=== PATIENT | male | born 1950 | race Caucasian/White ===

== ENCOUNTER 2017-01-17 16:59 | Emergency (ER) | payer BC, OTHER ==
[~2017-01-17] VITALS: Ht 177.8 cm; Wt 105.7 kg
[2017-01-17] MEDS ORDERED: ASPIRIN 81 MG CHEW TABLET ONE (17:00)
[2017-01-17 17:24] LABS: BASO # 0.1 10^3/uL (0.0-0.2); BASO % 0.8 % (0.0-1.0); EOS # 0.2 10^3/uL (0.0-0.50); EOS % 1.7 % (0.0-3.0); IMMATURE GRANULOCYTE % 1.5 % (0-0); LYMPH # 3.9 10^3/uL (1.5-4.5); LYMPH % 30.8 % (24.0-44.0); MEAN CORPUSCULAR HEMOGLOBIN 28.1 pg (27.0-33.0); MEAN CORPUSCULAR VOLUME 87.8 fl (80.0-96.0); MONO # 1.1 10^3/uL (0.0-0.8); MONO % 8.6 % (0.0-5.0); NEUTROPHILS # 7.1 10^3/uL (1.8-7.7); NEUTROPHILS % 56.6 % (36.0-66.0); PLATELET COUNT, AUTOMATED 305 10^3/uL (150-450); RED CELL DISTRIBUTION WIDTH 12.5 % (11.5-14.5); WHITE BLOOD COUNT 12.6 10^3/uL (4.0-10.0)
[2017-01-17] MEDS ORDERED: ONDANSETRON 4MG/2ML VIAL (J2405) As Ordered ONE (17:27)
[2017-01-17 17:33] LABS: INR 1.04
[2017-01-17 17:59] LABS: ALBUMIN 3.3 GM/DL (3.2-5.2); ALBUMIN/GLOBULIN RATIO 0.83 (1.00-1.93); BILIRUBIN,DIRECT 0.3 MG/DL (0.0-0.2); BILIRUBIN,TOTAL 0.5 MG/DL (0.2-1.0); CALCIUM LEVEL 8.6 MG/DL (8.8-10.2); CREATININE FOR GFR 1.36 MG/DL (0.70-1.30); FREE T4 1.01 NG/DL (0.76-1.46); TOTAL PROTEIN 7.3 GM/DL (6.4-8.2)
[2017-01-17] MEDS ORDERED: ATROPINE SULF 1MG/10ML SYRINGE (J0461) IV STA (18:02)
[2017-01-17] MEDS ORDERED: HEPARIN DRIP 25,000 UNITS in APPROPRIATE DILUENT 1 EA IV SCH (18:12)
[2017-01-17] MEDS ORDERED: HEPARIN SOD (PORCINE) 5000 UNITS/ML VIAL IV ONE (18:15)
[2017-01-17] MEDS ORDERED: TENECTEPLASE 50 MG KIT (TNKase)(J3101) IV ONE (18:15)
[2017-01-17] MEDS ORDERED: DOPamine HCL 800 MG in APPROPRIATE DILUENT 1 EA IV SCH (18:15)
[2017-01-17] MEDS ORDERED: NS 1,000 ML IV ONE (18:15)
--- NOTE | 2017-01-17 18:16 | REP ---
HISTORY: Chest pain. The technique utilized in obtaining the radiograph has magnified the cardiac silhouette and accentuated the interstitial markings. The superior mediastinal structures are midline. The cardiac silhouette is unremarkable in size, shape, and position. The diaphragmatic surfaces of the lungs are regular, and the costophrenic angles are clear. The pulmonary loaiza are clear. The imaged osseous structures are intact. IMPRESSION: There is no acute cardiopulmonary disease. The mediastinum is widened, probably due to portable technique, however, there are no priors for comparison. Consider followup with contrast enhanced CT. Signed by Roberto Browning DO 01/17/2017 07:44 P
[2017-01-17] MEDS ORDERED: METOCLOPRAMIDE INJ 10MG/2ML VIAL (J2765) IV ONE ×2 (18:30→18:45)
[2017-01-17] MEDS ORDERED: ONDANSETRON 4MG/2ML VIAL (J2405) IV ONE (18:45)
[2017-01-17 19:04] VITALS: BP 105/58
--- NOTE | 2017-01-17 19:18 | REP ---
REASON: Trauma. COMPARISON: None. TECHNIQUE: 4.5 mm contiguous transaxial sections were obtained from the skull base to the cerebral convexities with thin cuts through the posterior fossa without the administration of intravenous contrast. FINDINGS: The ventricles and sulci are consistent with the patient's age. There are no extra-axial fluid collections. There is no mass effect. The deep cerebral white matter is consistent with the patient's age. The orbital and petrous structures, cerebellopontine angles, and posterior fossa are unremarkable. The sella turcica, cavernous, and paracavernous structures are essentially unremarkable. The visualized portions of the paranasal sinuses and mastoid air cells are clear. Images of the skull base show no gross abnormality. There is evidence of a right temporal region scalp hematoma and sinus mucosal thickening. IMPRESSION: Essentially unremarkable CT examination of the brain. Signed by Roberto Browning DO 01/17/2017 07:45 P
--- NOTE | 2017-01-17 19:24 | REP ---
HISTORY: Pain after trauma. COMPARISON: None. The examination is limited by the lack of intravenous contrast. The liver, gallbladder, spleen, pancreas, and adrenal glands are grossly unremarkable. In the right kidney there is a round 2.5 cm size structure which has water Hounsfield unit readings consistent with a simple cyst. In the left kidney, there is a round 2 cm size low density structure which has water Hounsfield unit readings consistent with simple cysts. Limited evaluation of the abdominal aorta and paraaortic regions show no gross abnormalities. There is calcific atherosclerotic change. Limited evaluation of the bowel loops and their mesenteries show no gross abnormalities. There is no free fluid or free air in the abdomen or pelvis. There is no evidence of an intraabdominal or intrapelvic mass or adenopathy. There is a large right inguinal ring with fat within the inguinal canal. Bone window technique throughout the examination shows the osseous structures to be within normal limits for the patient's age. IMPRESSION: Chronic changes as described above. There are bilateral renal cysts and there is fat in the right inguinal canal. This does not indicate a definite hernia, which needs to be correlated clinically. Signed by Roberto Browning DO 01/17/2017 07:45 P
--- NOTE | 2017-01-17 19:37 | REP ---
REASON: Trauma. COMPARISON: None. The lack of intravenous contrast significantly decreases the sensitivity of the exam. There is no mediastinal or hilar adenopathy. There are no pleural or pericardial effusions. The imaged osseous structures are within normal limits for the patients age. Evaluation of the lung loaiza show patchy opacities scattered throughout with curvilinear densities, most likely consistent with subsegmental atelectatic changes. There is no evidence of a significant nodule or mass. IMPRESSION:Limited examination showing no evidence of acute disease. Signed by Roberto Browning DO 01/17/2017 07:46 P
--- NOTE | 2017-01-18 07:36 | ECGEPIP ---
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
--- NOTE | 2017-01-18 07:43 | ECGEPIP ---
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
== END 2017-01-17 19:06 | disposition short-term general hospital (02) ==
LOC: EDBD 16:59 → M ED 16:59
DX: I21.19 ST elevation (STEMI) myocardial infarction involving other coronary artery of inferior wall (principal); E11.9 Type 2 diabetes mellitus without complications; Z91.19 Patient's noncompliance with other medical treatment and regimen; Z82.49 Family history of ischemic heart disease and other diseases of the circulatory system
CPT/HCPCS: 70450; 71010; 71250; 74176; 80048; 80076; 82550; 82553; 83690; 83880; 84439; 84443; 85025; 85610; 93005; 93041; 96374; 96375; 96376; 99291; J0461; J1265; J2405; J2765; J3101

== ENCOUNTER → 2017-03-18 | Outpatient (REF) | payer BC, MEDICARE | LOC: SKLAB3 18:04 | DX: M17.11 Unilateral primary osteoarthritis, right knee (principal); M16.11 Unilateral primary osteoarthritis, right hip | CPT/HCPCS: 73564 ==

== ENCOUNTER → 2017-03-18 | Outpatient (REF) ==
[2017-03-16 07:42] LABS: HEMATOCRIT 34.9 % (42.0-52.0); HEMOGLOBIN 10.5 g/dl (14.0-18.0); MEAN CORPUSCULAR HEMOGLOBIN 27.9 pg (27.0-33.0); MEAN CORPUSCULAR HGB CONC 30.1 g/dl (32.0-36.5); MEAN CORPUSCULAR VOLUME 92.6 fl (80.0-96.0); PLATELET COUNT, AUTOMATED 241 10^3/uL (150-450); RED BLOOD COUNT 3.77 10^6/uL (4.30-6.10); RED CELL DISTRIBUTION WIDTH 14.7 % (11.5-14.5); WHITE BLOOD COUNT 6.9 10^3/uL (4.0-10.0)
[2017-03-18 17:23] LABS: ALBUMIN 3.1 GM/DL (3.2-5.2)
[2017-03-18 17:35] LABS: PREALBUMIN 26.7 MG/DL (20.0-40.0)
== END ==
LOC: SKLAB3 12:46
DX: Z00.00 Encounter for general adult medical examination without abnormal findings (principal)

== ENCOUNTER 2017-03-29 16:24 | Emergency (ER) | payer BC, MEDICARE ==
[2017-03-29] MEDS: ASPIRIN 81 MG CHEW TABLET PO (16:45)
[2017-03-29 16:50] LABS: BASO # 0.1 10^3/uL (0.0-0.2); EOS # 0.4 10^3/uL (0.0-0.50); EOS % 3.7 % (0.0-3.0); HEMATOCRIT 30.3 % (42.0-52.0); HEMOGLOBIN 9.3 g/dl (14.0-18.0); IMMATURE GRANULOCYTE # 0.5 10^3/uL (0-0); IMMATURE GRANULOCYTE % 4.7 % (0-0); LYMPH # 2.2 10^3/uL (1.5-4.5); LYMPH % 20.6 % (24.0-44.0); MEAN CORPUSCULAR HEMOGLOBIN 28.1 pg (27.0-33.0); MEAN CORPUSCULAR HGB CONC 30.7 g/dl (32.0-36.5); MEAN CORPUSCULAR VOLUME 91.5 fl (80.0-96.0); MONO # 0.9 10^3/uL (0.0-0.8); MONO % 8.6 % (0.0-5.0); NEUTROPHILS # 6.6 10^3/uL (1.8-7.7); NEUTROPHILS % 61.4 % (36.0-66.0); PLATELET COUNT, AUTOMATED 255 10^3/uL (150-450); RED BLOOD COUNT 3.31 10^6/uL (4.30-6.10); RED CELL DISTRIBUTION WIDTH 14.5 % (11.5-14.5); WHITE BLOOD COUNT 10.7 10^3/uL (4.0-10.0)
[2017-03-29 17:17] LABS: ALBUMIN 3.3 GM/DL (3.2-5.2); ALBUMIN/GLOBULIN RATIO 0.77 (1.00-1.93); ALKALINE PHOSPHATASE 134 U/L (45-117); ALT/SGPT 18 U/L (12-78); ANION GAP 6 MEQ/L (8-16); AST/SGOT 15 U/L (7-37); BILIRUBIN,DIRECT 0.1 MG/DL (0.0-0.2); BILIRUBIN,TOTAL 0.3 MG/DL (0.2-1.0); BLOOD UREA NITROGEN 10 MG/DL (7-18); CALCIUM LEVEL 8.6 MG/DL (8.8-10.2); CARBON DIOXIDE LEVEL 31 MEQ/L (21-32); CHLORIDE LEVEL 104 MEQ/L (98-107); CPK CREATINE PHOSPHOKINASE 30 U/L (39-308); CREATININE FOR GFR 1.12 MG/DL (0.70-1.30); GLOMERULAR FILTRATION RATE > 60.0 (>49); GLUCOSE, FASTING 142 MG/DL (70-100); LIPASE 1047 U/L (73-393); POTASSIUM SERUM 3.6 MEQ/L (3.5-5.1); SODIUM LEVEL 141 MEQ/L (136-145); TOTAL PROTEIN 7.6 GM/DL (6.4-8.2); TROPONIN I 0.02 NG/ML (< 0.10)
[2017-03-29 17:18] LABS: CK-MB VALUE MASS 2.2 NG/ML (0.0-3.6); MB/CK RELATIVE INDEX 7.33 (< OR =4); NT-PRO BNP 5405 PG/ML (<125)
[2017-03-29 17:20] LABS: INR 1.07
[2017-03-29 17:21] LABS: PARTIAL THROMBOPLASTIN TIME 36.6 SECONDS (26.8-37.9)
[2017-03-29] MEDS: ACETAMINOPHEN TAB 650MG DOSE (2X325MG) PO (21:55)
[2017-03-29 23:24] LABS: CPK CREATINE PHOSPHOKINASE 26 U/L (39-308); TROPONIN I 0.02 NG/ML (< 0.10)
[2017-03-29 23:27] LABS: MB/CK RELATIVE INDEX 7.69 (< OR =4)
== END 2017-03-30 01:00 | disposition home or self-care (01) ==
LOC: M ED 03-30 01:00
DX: J90 Pleural effusion, not elsewhere classified (principal); E11.9 Type 2 diabetes mellitus without complications; I25.10 Atherosclerotic heart disease of native coronary artery without angina pectoris; I25.2 Old myocardial infarction; N18.6 End stage renal disease; Z99.2 Dependence on renal dialysis; D64.9 Anemia, unspecified; L89.150 Pressure ulcer of sacral region, unstageable; Z79.899 Other long term (current) drug therapy
CPT/HCPCS: 71045

== ENCOUNTER → 2017-04-01 | Outpatient (REF) ==
[2017-04-01 17:11] LABS: ALBUMIN 3.2 GM/DL (3.2-5.2); ALBUMIN/GLOBULIN RATIO 0.78 (1.00-1.93); ALKALINE PHOSPHATASE 119 U/L (45-117); ALT/SGPT 17 U/L (12-78); ANION GAP 7 MEQ/L (8-16); AST/SGOT 16 U/L (7-37); BILIRUBIN,TOTAL 0.4 MG/DL (0.2-1.0); BLOOD UREA NITROGEN 11 MG/DL (7-18); CALCIUM LEVEL 8.6 MG/DL (8.8-10.2); CARBON DIOXIDE LEVEL 31 MEQ/L (21-32); CHLORIDE LEVEL 104 MEQ/L (98-107); CHOLESTEROL LEVEL 99 MG/DL (<200); CHOLESTEROL RISK RATIO 2.828 (<5); CREATININE FOR GFR 1.21 MG/DL (0.70-1.30); GLOMERULAR FILTRATION RATE > 60.0 (>49); GLUCOSE, FASTING 141 MG/DL (70-100); HDL CHOLESTEROL 35 MG/DL (>40); IRON (FE) 113 UG/DL (65-175); LDL CHOLESTEROL 32.4 MG/DL (<100); NON-HDL-C 64 MG/DL; POTASSIUM SERUM 3.9 MEQ/L (3.5-5.1); SODIUM LEVEL 142 MEQ/L (136-145); TOTAL PROTEIN 7.3 GM/DL (6.4-8.2); TRIGLYCERIDES LEVEL 158 MG/DL (<150)
[2017-04-01 17:34] LABS: HEMATOCRIT 28.1 % (42.0-52.0); HEMOGLOBIN 8.6 g/dl (14.0-18.0); MEAN CORPUSCULAR HGB CONC 30.6 g/dl (32.0-36.5); MEAN CORPUSCULAR VOLUME 91.5 fl (80.0-96.0); PLATELET COUNT, AUTOMATED 232 10^3/uL (150-450); RED BLOOD COUNT 3.07 10^6/uL (4.30-6.10); RED CELL DISTRIBUTION WIDTH 14.8 % (11.5-14.5); WHITE BLOOD COUNT 10.6 10^3/uL (4.0-10.0)
[2017-04-01 17:39] LABS: ESTIMATED AVERAGE GLUCOSE 126 MG/DL (60-110)
== END ==
LOC: SKLAB3 07:31
DX: D64.9 Anemia, unspecified (principal); E11.9 Type 2 diabetes mellitus without complications; I25.10 Atherosclerotic heart disease of native coronary artery without angina pectoris

== ENCOUNTER → 2017-04-21 | Outpatient (REF) | payer BC, MEDICARE | LOC: SKLAB3 20:25 | DX: N17.9 Acute kidney failure, unspecified (principal) ==

== ENCOUNTER → 2017-04-22 | Outpatient (REF) ==
[2017-04-22 08:06] LABS: HEMATOCRIT 31.1 % (42.0-52.0); HEMOGLOBIN 9.5 g/dl (14.0-18.0); MEAN CORPUSCULAR HEMOGLOBIN 27.7 pg (27.0-33.0); MEAN CORPUSCULAR HGB CONC 30.5 g/dl (32.0-36.5); MEAN CORPUSCULAR VOLUME 90.7 fl (80.0-96.0); PLATELET COUNT, AUTOMATED 228 10^3/uL (150-450); RED BLOOD COUNT 3.43 10^6/uL (4.30-6.10); RED CELL DISTRIBUTION WIDTH 15.7 % (11.5-14.5); WHITE BLOOD COUNT 10.7 10^3/uL (4.0-10.0)
[2017-04-22 08:27] LABS: ANION GAP 11 MEQ/L (8-16); BLOOD UREA NITROGEN 63 MG/DL (7-18); CALCIUM LEVEL 9.2 MG/DL (8.8-10.2); CARBON DIOXIDE LEVEL 25 MEQ/L (21-32); CHLORIDE LEVEL 103 MEQ/L (98-107); CREATININE FOR GFR 3.36 MG/DL (0.70-1.30); GLOMERULAR FILTRATION RATE 19.7 (>49); GLUCOSE, FASTING 146 MG/DL (70-100); SODIUM LEVEL 139 MEQ/L (136-145)
[2017-04-22 08:30] LABS: POTASSIUM SERUM 5.4 MEQ/L (3.5-5.1)
== END ==
LOC: SKLAB3 07:00
DX: D64.9 Anemia, unspecified (principal); R06.02 Shortness of breath; N18.9 Chronic kidney disease, unspecified

== ENCOUNTER → 2017-04-23 | Outpatient (REF) ==
[2017-04-23 15:02] LABS: CREATININE, SERUM 3.4 MG/DL (0.6-1.3); TOTAL VOLUME, URINE 135 ML
[2017-04-23 15:42] LABS: CREATININE CLEARANCE, URINE 3.1 ML/MIN (85-125)
== END ==
LOC: SKLAB3 14:50
DX: N18.9 Chronic kidney disease, unspecified (principal)

== ENCOUNTER → 2017-05-06 | Outpatient (REF) ==
[2017-05-06 11:36] LABS: CREATININE, SERUM 5.5 MG/DL (0.6-1.3); TOTAL VOLUME, URINE 70 ML
[2017-05-06 11:37] LABS: CREATININE CLEARANCE, URINE 1.4 ML/MIN (85-125)
== END ==
LOC: SKLAB3 09:18
DX: N18.9 Chronic kidney disease, unspecified (principal)

== ENCOUNTER → 2017-05-13 | Outpatient (REF) ==
[2017-05-13 09:04] LABS: HEMATOCRIT 34.1 % (42.0-52.0); HEMOGLOBIN 10.3 g/dl (14.0-18.0); MEAN CORPUSCULAR HEMOGLOBIN 27.8 pg (27.0-33.0); MEAN CORPUSCULAR HGB CONC 30.2 g/dl (32.0-36.5); MEAN CORPUSCULAR VOLUME 92.2 fl (80.0-96.0); PLATELET COUNT, AUTOMATED 202 10^3/uL (150-450); RED CELL DISTRIBUTION WIDTH 16.2 % (11.5-14.5); WHITE BLOOD COUNT 9.7 10^3/uL (4.0-10.0)
== END ==
LOC: SKLAB3 12:40
DX: D64.9 Anemia, unspecified (principal)

== ENCOUNTER → 2017-06-18 | Outpatient (REF) | payer BC, MEDICARE ==
[2017-06-18 17:33] LABS: IRON (FE) 34 UG/DL (65-175); PERCENT SATURATION 12.8 % (19.7-50.0); TOTAL IRON BINDING CAPACITY 266 UG/DL (250-450)
== END ==
LOC: M LAB REF 16:41
DX: D50.9 Iron deficiency anemia, unspecified (principal)
CPT/HCPCS: 83550

== ENCOUNTER 2017-07-18 09:16 | Day surgery (SDC) | payer BC, MEDICARE ==
[~2017-07-18 09:16] MED LIST: LIDOCAINE 2% INJ 100 MG/5 ML SDV (FOR ANES.) As Ordered; MIDAZOLAM INJ 2 MG/2 ML VIAL (J2250) As Ordered; ONDANSETRON 4MG/2ML VIAL (J2405) As Ordered; PROPOFOL 200 MG/20 ML VIAL As Ordered; fentaNYL 100 MCG/2 ML INJECTION (J3010) As Ordered
[2017-07-18 10:02] LABS: POTASSIUM SERUM 4.6 MEQ/L (3.5-5.1)
[2017-07-18 11:27] LABS: BEDSIDE GLUCOSE 98 MG/DL (80-115)
[2017-07-18] MEDS: LIDOCAINE 1% MDV 20ML VIAL As Ordered (11:49)
[2017-07-18] MEDS: BUPIVACAINE HCL 0.5% 10 ML VIAL As Ordered (11:49)
[2017-07-18] MEDS: HEPARIN SOD (PORCINE) 5000 UNITS/ML VIAL As Ordered (11:49)
[2017-07-18] MEDS ORDERED: LABETALOL HCL 100 MG/20 ML VIAL As Ordered (11:59)
[2017-07-18] MEDS: D5W/0.2% SODIUM CHLORIDE 1,000 ML IV (12:52)
[2017-07-18] MEDS ORDERED: fentaNYL 100 MCG/2 ML INJECTION (J3010) IV (13:30)
[2017-07-18] MEDS ORDERED: LR 1,000 ML IV (13:30)
[2017-07-18] MEDS ORDERED: ONDANSETRON 4MG/2ML VIAL (J2405) IV (13:30)
== END 2017-07-18 16:54 | disposition home or self-care (01) ==
LOC: M SDC 09:16
DX: N18.6 End stage renal disease (principal); E11.22 Type 2 diabetes mellitus with diabetic chronic kidney disease; Z99.2 Dependence on renal dialysis; I25.2 Old myocardial infarction; Z95.1 Presence of aortocoronary bypass graft; I25.10 Atherosclerotic heart disease of native coronary artery without angina pectoris; D64.9 Anemia, unspecified; Z79.899 Other long term (current) drug therapy
CPT/HCPCS: 36821

== ENCOUNTER → 2017-07-18 | Outpatient (CLI) | payer BC, MEDICARE | LOC: M RAD 07:39 | DX: N18.6 End stage renal disease (principal); Z01.818 Encounter for other preprocedural examination | CPT/HCPCS: G0365 ==

== ENCOUNTER → 2017-08-06 | Outpatient (CLI) | payer BC, MEDICARE ==
[~2017-08-06] MED LIST changes: +ISOVUE-300 61% 50ML VIAL (Q9967) As Ordered; -LIDOCAINE 2% INJ 100 MG/5 ML SDV (FOR ANES.) As Ordered; +ONDANSETRON 4 MG ORAL DISINTEGRATING TAB (Q0162 PER 1MG) As Ordered; -ONDANSETRON 4MG/2ML VIAL (J2405) As Ordered; -PROPOFOL 200 MG/20 ML VIAL As Ordered
== END | disposition home or self-care (01) ==
LOC: M IRPRO 08:06
DX: T82.590A Other mechanical complication of surgically created arteriovenous fistula, initial encounter (principal); E11.22 Type 2 diabetes mellitus with diabetic chronic kidney disease; I12.0 Hypertensive chronic kidney disease with stage 5 chronic kidney disease or end stage renal disease; N18.6 End stage renal disease; E78.00 Pure hypercholesterolemia, unspecified; I25.10 Atherosclerotic heart disease of native coronary artery without angina pectoris; Z95.1 Presence of aortocoronary bypass graft; Z99.2 Dependence on renal dialysis
CPT/HCPCS: 36901

== ENCOUNTER → 2017-09-05 | Outpatient (REF) | payer BC, MEDICARE ==
[2017-09-05 17:17] LABS: FERRITIN 1466 NG/ML (26-388); IRON (FE) 47 UG/DL (65-175); PERCENT SATURATION 17.9 % (19.7-50.0); TOTAL IRON BINDING CAPACITY 262 UG/DL (250-450)
== END ==
LOC: M LAB REF 16:34
DX: D50.9 Iron deficiency anemia, unspecified (principal)
CPT/HCPCS: 83550

== ENCOUNTER 2017-09-09 19:10 | Emergency (ER) | payer BC, MEDICARE ==
[2017-09-09 20:27] LABS: BASO # 0.1 10^3/uL (0.0-0.2); EOS # 0.1 10^3/uL (0.0-0.50); HEMATOCRIT 32.8 % (42.0-52.0); HEMOGLOBIN 10.1 g/dl (13.5-17.5); IMMATURE GRANULOCYTE % 2.4 % (0-3.0); LYMPH % 14.4 % (24.0-44.0); MEAN CORPUSCULAR HEMOGLOBIN 27.7 pg (27.0-33.0); MEAN CORPUSCULAR HGB CONC 30.8 g/dl (32.0-36.5); MEAN CORPUSCULAR VOLUME 90.1 fl (80.0-96.0); MONO # 0.9 10^3/uL (0.0-0.8); MONO % 12.8 % (0.0-5.0); NEUTROPHILS # 4.8 10^3/uL (1.8-7.7); NEUTROPHILS % 67.4 % (36.0-66.0); PLATELET COUNT, AUTOMATED 211 10^3/uL (150-450); RED BLOOD COUNT 3.64 10^6/uL (4.30-6.10); RED CELL DISTRIBUTION WIDTH 17.6 % (11.5-14.5); WHITE BLOOD COUNT 7.1 10^3/uL (4.0-10.0)
[2017-09-09 20:47] LABS: LACTIC ACID SEPSIS PROTOCOL 1.2 MMOL/L (0.4-2.0)
[2017-09-09] MEDS: METOCLOPRAMIDE INJ 10MG/2ML VIAL (J2765) IV ×2 (20:47)
[2017-09-09 20:48] LABS: ALBUMIN 3.6 GM/DL (3.2-5.2); ALBUMIN/GLOBULIN RATIO 0.92 (1.00-1.93); ALKALINE PHOSPHATASE 156 U/L (45-117); ALT/SGPT 18 U/L (12-78); ANION GAP 8 MEQ/L (8-16); AST/SGOT 14 U/L (7-37); BILIRUBIN,DIRECT 0.4 MG/DL (0.0-0.2); BILIRUBIN,TOTAL 0.7 MG/DL (0.2-1.0); BLOOD UREA NITROGEN 58 MG/DL (7-18); CALCIUM LEVEL 8.4 MG/DL (8.8-10.2); CARBON DIOXIDE LEVEL 26 MEQ/L (21-32); CHLORIDE LEVEL 103 MEQ/L (98-107); CPK CREATINE PHOSPHOKINASE 34 U/L (39-308); CREATININE FOR GFR 6.64 MG/DL (0.70-1.30); GLUCOSE, FASTING 115 MG/DL (70-100); LIPASE 727 U/L (73-393); SODIUM LEVEL 137 MEQ/L (136-145); TOTAL PROTEIN 7.5 GM/DL (6.4-8.2); TROPONIN I < 0.02 NG/ML (< 0.10)
[2017-09-09 20:49] LABS: CK-MB VALUE MASS 3.7 NG/ML (<3.6); INR 1.32; MB/CK RELATIVE INDEX 10.88 (< OR =4); PROTHROMBIN TIME 16.6 SECONDS (12.1-14.4)
[2017-09-09 20:53] LABS: POTASSIUM SERUM 5.4 MEQ/L (3.5-5.1)
[2017-09-09 23:51] LABS: CPK CREATINE PHOSPHOKINASE 32 U/L (39-308); TROPONIN I 0.02 NG/ML (< 0.10)
[2017-09-09 23:52] LABS: CK-MB VALUE MASS 3.6 NG/ML (<3.6); MB/CK RELATIVE INDEX 11.25 (< OR =4)
== END 2017-09-10 01:17 | disposition home or self-care (01) ==
LOC: M ED 09-10 01:17
DX: R53.1 Weakness (principal); N18.6 End stage renal disease; Z99.2 Dependence on renal dialysis; I25.2 Old myocardial infarction; I45.19 Other right bundle-branch block; Z79.899 Other long term (current) drug therapy
CPT/HCPCS: J2765

== ENCOUNTER → 2017-09-19 | Outpatient (CLI) | payer BC, MEDICARE ==
[~2017-09-19] MED LIST changes: -ONDANSETRON 4 MG ORAL DISINTEGRATING TAB (Q0162 PER 1MG) As Ordered
== END | disposition home or self-care (01) ==
LOC: M IRPRO 12:31
DX: T82.9XXA Unspecified complication of cardiac and vascular prosthetic device, implant and graft, initial encounter (principal); N18.6 End stage renal disease
CPT/HCPCS: 36901

== ENCOUNTER → 2017-10-03 | Outpatient (CLI) | payer BC, MEDICARE ==
[~2017-10-03] MED LIST changes: +HEPARIN 1,000 UNITS/ML 10ML VIAL (FOR RADIOLOGY& DIALYSIS ONLY) As Ordered
== END | disposition home or self-care (01) ==
LOC: M IRPRO 06:36
DX: I70.201 Unspecified atherosclerosis of native arteries of extremities, right leg (principal); N18.6 End stage renal disease; I12.0 Hypertensive chronic kidney disease with stage 5 chronic kidney disease or end stage renal disease; I25.10 Atherosclerotic heart disease of native coronary artery without angina pectoris; E78.00 Pure hypercholesterolemia, unspecified; I87.2 Venous insufficiency (chronic) (peripheral)
CPT/HCPCS: 37225

== ENCOUNTER 2017-11-26 12:34 | Emergency (ER) | payer BC, MEDICARE | END 2017-11-26 16:12 | disposition home or self-care (01) | LOC: M ED 12:34 | DX: R19.4 Change in bowel habit (principal); R60.9 Edema, unspecified; I25.2 Old myocardial infarction; E11.9 Type 2 diabetes mellitus without complications; N18.6 End stage renal disease; Z99.2 Dependence on renal dialysis; Z79.899 Other long term (current) drug therapy | CPT/HCPCS: 93970 ==

== ENCOUNTER 2017-12-02 17:03 | Inpatient (IN) | payer BC, MEDICARE ==
[2017-12-02 18:05] LABS: BASO # 0.1 10^3/uL (0.0-0.2); BASO % 0.8 % (0.0-1.0); EOS # 0.1 10^3/uL (0.0-0.50); EOS % 1.1 % (0.0-3.0); HEMATOCRIT 38.8 % (42.0-52.0); HEMOGLOBIN 11.7 g/dl (13.5-17.5); IMMATURE GRANULOCYTE % 3.6 % (0-3.0); LYMPH # 0.7 10^3/uL (1.5-4.5); LYMPH % 7.1 % (24.0-44.0); MEAN CORPUSCULAR HEMOGLOBIN 28.3 pg (27.0-33.0); MEAN CORPUSCULAR HGB CONC 30.2 g/dl (32.0-36.5); MEAN CORPUSCULAR VOLUME 93.7 fl (80.0-96.0); MONO # 1.1 10^3/uL (0.0-0.8); MONO % 12.4 % (0.0-5.0); NEUTROPHILS # 6.9 10^3/uL (1.8-7.7); PLATELET COUNT, AUTOMATED 337 10^3/uL (150-450); RED BLOOD COUNT 4.14 10^6/uL (4.30-6.10); RED CELL DISTRIBUTION WIDTH 15.8 % (11.5-14.5); WHITE BLOOD COUNT 9.2 10^3/uL (4.0-10.0)
[2017-12-02 18:09] LABS: INR 1.33; PROTHROMBIN TIME 16.7 SECONDS (12.1-14.4)
[2017-12-02 18:10] LABS: PARTIAL THROMBOPLASTIN TIME 40.7 SECONDS (25.4-37.6)
[2017-12-02 18:18] LABS: ANION GAP 7 MEQ/L (8-16); BLOOD UREA NITROGEN 23 MG/DL (7-18); CALCIUM LEVEL 9.2 MG/DL (8.8-10.2); CARBON DIOXIDE LEVEL 32 MEQ/L (21-32); CHLORIDE LEVEL 99 MEQ/L (98-107); CPK CREATINE PHOSPHOKINASE 21 U/L (39-308); CREATININE FOR GFR 3.36 MG/DL (0.70-1.30); FREE T4 1.01 NG/DL (0.76-1.46); GLOMERULAR FILTRATION RATE 19.7 (>49); GLUCOSE, FASTING 108 MG/DL (70-100); NT-PRO BNP 25105 PG/ML (<125); SODIUM LEVEL 138 MEQ/L (136-145); TROPONIN I 0.02 NG/ML (< 0.10)
[2017-12-02] MEDS: IPRATROPIUM 0.5MG/ALBUTEROL 2.5MG INH SOL UD 3ML (DUONEB)(J7620) NEB (18:56)
[2017-12-02] MEDS: cefTRIAXone SOD 1 GM in D5W MINI-BAG PLUS 50 ML IV (20:01)
[2017-12-02] MEDS: FUROSEMIDE 40 MG/4 ML VIAL (J1940) IV (20:08)
[2017-12-02] MEDS: AZITHROMYCIN INJ 500 MG, VIAL MATE ADAPTER 1 EACH in D5W 250 ML IV (20:46)
[2017-12-02] MEDS ORDERED: ONDANSETRON 4MG/2ML VIAL (J2405) IV (22:00)
[2017-12-02] MEDS ORDERED: MORPHINE 4 MG/ML 1ML VIAL/SYRINGE (J2270) IV (22:00)
[2017-12-02] MEDS: ATORVASTATIN 20 MG TAB PO (22:17)
[2017-12-02] MEDS: GABAPENTIN 100 MG CAP PO (22:17)
[2017-12-02] MEDS: SERTRALINE HCL 25 MG TABLET PO (22:17)
[2017-12-02] MEDS ORDERED: VANCOMYCIN HCL 750 MG, VIAL MATE ADAPTER 1 EACH in D5W 250 ML IV (23:00)
[2017-12-03] MEDS: VANCOMYCIN HCL 1,000 MG, VIAL MATE ADAPTER 1 EACH in D5W 250 ML IV (00:52)
[2017-12-03] MEDS: CEFEPIME HCL 1 GM in D5W MINI-BAG PLUS 50 ML IV ×2 (01:16→11:54)
[2017-12-03 04:55] LABS: ABG BASE EXCESS 2.5 (-2.0-2.0); ABG HCO3 28.9 MEQ/L (22.0-26.0); ABG O2 SATURATION 97.1 % (95.0-99.0); ABG PARTIAL PRESSURE CO2 53.2 mmHg (35.0-45.0); ABG PARTIAL PRESSURE O2 97.3 mmHg (75.0-100.0); ABG STANDARD HCO3 26.7 MEQ/L (22.0-26.0); ABG TOTAL CO2 30.5 MEQ/L (23.0-31.0); ABG pH (ARTERIAL) 7.353 UNITS (7.350-7.450)
[2017-12-03] MEDS: HEPARIN SOD (PORCINE) 5000 UNITS/ML VIAL SC ×3 (05:47→21:24)
[2017-12-03 06:08] LABS: ALBUMIN 2.6 GM/DL (3.2-5.2); ALBUMIN/GLOBULIN RATIO 0.53 (1.00-1.93); ALKALINE PHOSPHATASE 131 U/L (45-117); ALT/SGPT 12 U/L (12-78); ANION GAP 10 MEQ/L (8-16); AST/SGOT 15 U/L (7-37); BILIRUBIN,TOTAL 0.6 MG/DL (0.2-1.0); BLOOD UREA NITROGEN 32 MG/DL (7-18); CALCIUM LEVEL 8.6 MG/DL (8.8-10.2); CARBON DIOXIDE LEVEL 26 MEQ/L (21-32); CHLORIDE LEVEL 100 MEQ/L (98-107); CREATININE FOR GFR 4.28 MG/DL (0.70-1.30); GLOMERULAR FILTRATION RATE 14.9 (>49); GLUCOSE, FASTING 99 MG/DL (70-100); POTASSIUM SERUM 4.7 MEQ/L (3.5-5.1); SODIUM LEVEL 136 MEQ/L (136-145); TOTAL PROTEIN 7.5 GM/DL (6.4-8.2)
[2017-12-03 07:12] LABS: BASO # 0.1 10^3/uL (0.0-0.2); BASO % 0.8 % (0.0-1.0); EOS # 0.2 10^3/uL (0.0-0.50); EOS % 1.8 % (0.0-3.0); HEMATOCRIT 34.5 % (42.0-52.0); HEMOGLOBIN 10.1 g/dl (13.5-17.5); IMMATURE GRANULOCYTE % 2.6 % (0-3.0); LYMPH # 0.8 10^3/uL (1.5-4.5); LYMPH % 8.2 % (24.0-44.0); MEAN CORPUSCULAR HEMOGLOBIN 27.7 pg (27.0-33.0); MEAN CORPUSCULAR HGB CONC 29.3 g/dl (32.0-36.5); MEAN CORPUSCULAR VOLUME 94.8 fl (80.0-96.0); MONO # 1.7 10^3/uL (0.0-0.8); MONO % 17.4 % (0.0-5.0); NEUTROPHILS # 6.9 10^3/uL (1.8-7.7); NEUTROPHILS % 69.2 % (36.0-66.0); PLATELET COUNT, AUTOMATED 273 10^3/uL (150-450); RED BLOOD COUNT 3.64 10^6/uL (4.30-6.10); RED CELL DISTRIBUTION WIDTH 15.7 % (11.5-14.5); WHITE BLOOD COUNT 9.9 10^3/uL (4.0-10.0)
[2017-12-03] MEDS: IRON POLYSAC (NIFEREX) 150 MG CAP PO ×2 (09:00→21:25)
[2017-12-03] MEDS: PANTOPRAZOLE 40MG INJ (PROTONIX) (C9113) IV (09:06)
[2017-12-03] MEDS: MIRALAX *UNIT DOSE* 17GM PACKET PO (09:07)
[2017-12-03] MEDS: MIDODRINE 5 MG TAB PO ×3 (09:07→18:23)
[2017-12-03] MEDS: DOCUSATE SODIUM 100 MG CAP PO (09:07)
[2017-12-03] MEDS: FOLIC ACID 1 MG TAB PO (09:07)
[2017-12-03] MEDS: GABAPENTIN 100 MG CAP PO ×2 (09:07→21:25)
[2017-12-03] MEDS: PATIROMER SORBITEX CALCIUM 8.4 GM POWDER PACKET (VELTASSA) PO (09:07)
[2017-12-03] MEDS: (RENVELA) SEVELAMER **CARBONate** 800 MG TAB PO ×3 (09:07→18:23)
[2017-12-03] MEDS ORDERED: IPRATROPIUM 0.5MG/ALBUTEROL 2.5MG INH SOL UD 3ML (DUONEB)(J7620) NEB (15:45)
[2017-12-03] MEDS ORDERED: VANCOMYCIN HCL 1,000 MG, VIAL MATE ADAPTER 1 EACH in D5W 250 ML IV (16:00)
[2017-12-03] MEDS ORDERED: **VANCO AFTER HD** MISC XX (16:00)
[2017-12-03] MEDS: methylPREDNISolone INJ 40 MG/1 ML VIAL (J2920) IV (18:23)
[2017-12-03] MEDS: IPRATROPIUM 0.5MG/ALBUTEROL 2.5MG INH SOL UD 3ML (DUONEB)(J7620) NEB (19:57)
[2017-12-03] MEDS ORDERED: DARBEPOETIN 100 MCG/0.5 ML *DIALYSIS* SYRINGE (J0882) IV (20:00)
[2017-12-03] MEDS: SERTRALINE HCL 25 MG TABLET PO (21:25)
[2017-12-03] MEDS: ATORVASTATIN 20 MG TAB PO (21:25)
[2017-12-04] MEDS: IPRATROPIUM 0.5MG/ALBUTEROL 2.5MG INH SOL UD 3ML (DUONEB)(J7620) NEB ×4 (01:20→19:13)
[2017-12-04 05:09] LABS: BASO % 0.4 % (0.0-1.0); HEMATOCRIT 35.9 % (42.0-52.0); HEMOGLOBIN 10.7 g/dl (13.5-17.5); IMMATURE GRANULOCYTE % 4.2 % (0-3.0); LYMPH # 0.3 10^3/uL (1.5-4.5); MEAN CORPUSCULAR HEMOGLOBIN 27.8 pg (27.0-33.0); MEAN CORPUSCULAR HGB CONC 29.8 g/dl (32.0-36.5); MEAN CORPUSCULAR VOLUME 93.2 fl (80.0-96.0); MONO # 0.5 10^3/uL (0.0-0.8); MONO % 5.9 % (0.0-5.0); NEUTROPHILS # 7.2 10^3/uL (1.8-7.7); NEUTROPHILS % 85.5 % (36.0-66.0); PLATELET COUNT, AUTOMATED 307 10^3/uL (150-450); RED BLOOD COUNT 3.85 10^6/uL (4.30-6.10); RED CELL DISTRIBUTION WIDTH 15.6 % (11.5-14.5); WHITE BLOOD COUNT 8.4 10^3/uL (4.0-10.0)
[2017-12-04] MEDS: HEPARIN SOD (PORCINE) 5000 UNITS/ML VIAL SC ×3 (05:10→20:41)
[2017-12-04] MEDS: methylPREDNISolone INJ 40 MG/1 ML VIAL (J2920) IV (05:10)
[2017-12-04 05:28] LABS: ALBUMIN 2.7 GM/DL (3.2-5.2); ALBUMIN/GLOBULIN RATIO 0.54 (1.00-1.93); ALKALINE PHOSPHATASE 124 U/L (45-117); ALT/SGPT 11 U/L (12-78); ANION GAP 10 MEQ/L (8-16); AST/SGOT 19 U/L (7-37); BILIRUBIN,TOTAL 0.7 MG/DL (0.2-1.0); BLOOD UREA NITROGEN 45 MG/DL (7-18); CARBON DIOXIDE LEVEL 25 MEQ/L (21-32); CHLORIDE LEVEL 98 MEQ/L (98-107); CREATININE FOR GFR 5.17 MG/DL (0.70-1.30); GLUCOSE, FASTING 152 MG/DL (70-100); POTASSIUM SERUM 5.4 MEQ/L (3.5-5.1); SODIUM LEVEL 133 MEQ/L (136-145); TOTAL PROTEIN 7.7 GM/DL (6.4-8.2)
[2017-12-04] MEDS: MIRALAX *UNIT DOSE* 17GM PACKET PO (08:56)
[2017-12-04] MEDS: (RENVELA) SEVELAMER **CARBONate** 800 MG TAB PO ×3 (08:56→17:38)
[2017-12-04] MEDS: DOCUSATE SODIUM 100 MG CAP PO (08:56)
[2017-12-04] MEDS: FOLIC ACID 1 MG TAB PO (08:56)
[2017-12-04] MEDS: MIDODRINE 5 MG TAB PO ×3 (08:56→17:38)
[2017-12-04] MEDS: PATIROMER SORBITEX CALCIUM 8.4 GM POWDER PACKET (VELTASSA) PO (08:57)
[2017-12-04] MEDS: GABAPENTIN 100 MG CAP PO ×2 (08:57→20:40)
[2017-12-04] MEDS: PANTOPRAZOLE 40MG TAB (PROTONIX) PO (08:57)
[2017-12-04] MEDS: AMIODARONE 200 MG TAB (PACERONE) PO (08:57)
[2017-12-04] MEDS: IRON POLYSAC (NIFEREX) 150 MG CAP PO ×2 (08:57→20:40)
[2017-12-04] MEDS: HEPARIN 1,000 UNITS/ML 10ML VIAL (FOR RADIOLOGY& DIALYSIS ONLY) IV (11:30)
[2017-12-04] MEDS: LIDOCAINE 1% SDV 5 ML VIAL SQ (11:30)
[2017-12-04] MEDS: SERTRALINE HCL 25 MG TABLET PO (20:40)
[2017-12-04] MEDS: ATORVASTATIN 20 MG TAB PO (20:40)
[2017-12-05] MEDS: IPRATROPIUM 0.5MG/ALBUTEROL 2.5MG INH SOL UD 3ML (DUONEB)(J7620) NEB ×5 (02:00→20:00)
[2017-12-05 05:25] LABS: BASO % 0.2 % (0.0-1.0); EOS % 0.1 % (0.0-3.0); HEMATOCRIT 34.7 % (42.0-52.0); HEMOGLOBIN 10.4 g/dl (13.5-17.5); IMMATURE GRANULOCYTE % 2.2 % (0-3.0); LYMPH # 0.8 10^3/uL (1.5-4.5); LYMPH % 6.1 % (24.0-44.0); MEAN CORPUSCULAR HEMOGLOBIN 27.6 pg (27.0-33.0); MONO # 1.6 10^3/uL (0.0-0.8); MONO % 12.8 % (0.0-5.0); NEUTROPHILS # 9.8 10^3/uL (1.8-7.7); NEUTROPHILS % 78.6 % (36.0-66.0); PLATELET COUNT, AUTOMATED 315 10^3/uL (150-450); RED BLOOD COUNT 3.77 10^6/uL (4.30-6.10); RED CELL DISTRIBUTION WIDTH 15.8 % (11.5-14.5); WHITE BLOOD COUNT 12.5 10^3/uL (4.0-10.0)
[2017-12-05] MEDS: HEPARIN SOD (PORCINE) 5000 UNITS/ML VIAL SC ×3 (05:25→20:35)
[2017-12-05 05:50] LABS: ALBUMIN 2.7 GM/DL (3.2-5.2); ALBUMIN/GLOBULIN RATIO 0.53 (1.00-1.93); ALKALINE PHOSPHATASE 117 U/L (45-117); ALT/SGPT 12 U/L (12-78); ANION GAP 10 MEQ/L (8-16); AST/SGOT 14 U/L (7-37); BILIRUBIN,TOTAL 0.6 MG/DL (0.2-1.0); BLOOD UREA NITROGEN 35 MG/DL (7-18); CALCIUM LEVEL 8.8 MG/DL (8.8-10.2); CARBON DIOXIDE LEVEL 28 MEQ/L (21-32); CHLORIDE LEVEL 95 MEQ/L (98-107); CREATININE FOR GFR 4.43 MG/DL (0.70-1.30); GLOMERULAR FILTRATION RATE 14.3 (>49); GLUCOSE, FASTING 120 MG/DL (70-100); POTASSIUM SERUM 4.5 MEQ/L (3.5-5.1); SODIUM LEVEL 133 MEQ/L (136-145); TOTAL PROTEIN 7.8 GM/DL (6.4-8.2)
[2017-12-05] MEDS: MIRALAX *UNIT DOSE* 17GM PACKET PO (08:12)
[2017-12-05] MEDS: IRON POLYSAC (NIFEREX) 150 MG CAP PO ×2 (08:40→21:13)
[2017-12-05] MEDS: MIDODRINE 5 MG TAB PO ×3 (08:41→18:52)
[2017-12-05] MEDS: FOLIC ACID 1 MG TAB PO (08:41)
[2017-12-05] MEDS: (RENVELA) SEVELAMER **CARBONate** 800 MG TAB PO ×3 (08:41→19:07)
[2017-12-05] MEDS: DOCUSATE SODIUM 100 MG CAP PO (08:41)
[2017-12-05] MEDS: PANTOPRAZOLE 40MG TAB (PROTONIX) PO (08:42)
[2017-12-05] MEDS: GABAPENTIN 100 MG CAP PO ×2 (08:42→20:34)
[2017-12-05] MEDS ORDERED: methylPREDNISolone INJ 40 MG/1 ML VIAL (J2920) IV (09:00)
[2017-12-05] MEDS: LIDOCAINE 1% SDV 5 ML VIAL SQ (11:00)
[2017-12-05] MEDS: HEPARIN 1,000 UNITS/ML 10ML VIAL (FOR RADIOLOGY& DIALYSIS ONLY) IV (11:00)
[2017-12-05] MEDS ORDERED: SLF 3 ML SYR IV (17:15)
[2017-12-05] MEDS: ATORVASTATIN 20 MG TAB PO (20:34)
[2017-12-05] MEDS: SERTRALINE HCL 25 MG TABLET PO (20:34)
[2017-12-05] MEDS: SLF 3 ML SYR IV (20:35)
[2017-12-06] MEDS: IPRATROPIUM 0.5MG/ALBUTEROL 2.5MG INH SOL UD 3ML (DUONEB)(J7620) NEB ×4 (01:19→20:00)
[2017-12-06] MEDS: SLF 3 ML SYR IV ×3 (04:57→22:12)
[2017-12-06] MEDS: HEPARIN SOD (PORCINE) 5000 UNITS/ML VIAL SC ×3 (05:46→22:12)
[2017-12-06 06:00] LABS: BASO # 0.1 10^3/uL (0.0-0.2); BASO % 0.6 % (0.0-1.0); EOS # 0.1 10^3/uL (0.0-0.50); EOS % 0.7 % (0.0-3.0); HEMATOCRIT 36.9 % (42.0-52.0); IMMATURE GRANULOCYTE % 4.3 % (0-3.0); LYMPH # 0.9 10^3/uL (1.5-4.5); LYMPH % 7.8 % (24.0-44.0); MEAN CORPUSCULAR HEMOGLOBIN 27.6 pg (27.0-33.0); MEAN CORPUSCULAR HGB CONC 29.8 g/dl (32.0-36.5); MEAN CORPUSCULAR VOLUME 92.5 fl (80.0-96.0); MONO # 1.4 10^3/uL (0.0-0.8); MONO % 12.2 % (0.0-5.0); NEUTROPHILS # 8.7 10^3/uL (1.8-7.7); NEUTROPHILS % 74.4 % (36.0-66.0); PLATELET COUNT, AUTOMATED 286 10^3/uL (150-450); RED BLOOD COUNT 3.99 10^6/uL (4.30-6.10); RED CELL DISTRIBUTION WIDTH 15.6 % (11.5-14.5); WHITE BLOOD COUNT 11.7 10^3/uL (4.0-10.0)
[2017-12-06 06:24] LABS: ALBUMIN 2.4 GM/DL (3.2-5.2); ALBUMIN/GLOBULIN RATIO 0.55 (1.00-1.93); ALKALINE PHOSPHATASE 131 U/L (45-117); ALT/SGPT 11 U/L (12-78); ANION GAP 9 MEQ/L (8-16); AST/SGOT 15 U/L (7-37); BILIRUBIN,TOTAL 0.6 MG/DL (0.2-1.0); BLOOD UREA NITROGEN 51 MG/DL (7-18); CALCIUM LEVEL 8.7 MG/DL (8.8-10.2); CARBON DIOXIDE LEVEL 29 MEQ/L (21-32); CHLORIDE LEVEL 94 MEQ/L (98-107); CREATININE FOR GFR 5.56 MG/DL (0.70-1.30); GLUCOSE, FASTING 104 MG/DL (70-100); POTASSIUM SERUM 4.7 MEQ/L (3.5-5.1); SODIUM LEVEL 132 MEQ/L (136-145); TOTAL PROTEIN 6.8 GM/DL (6.4-8.2)
[2017-12-06] MEDS: MIDODRINE 5 MG TAB PO ×3 (06:35→18:23)
[2017-12-06] MEDS: FOLIC ACID 1 MG TAB PO (06:36)
[2017-12-06] MEDS: AMIODARONE 200 MG TAB (PACERONE) PO (06:36)
[2017-12-06] MEDS: GABAPENTIN 100 MG CAP PO ×2 (06:36→22:11)
[2017-12-06] MEDS: PANTOPRAZOLE 40MG TAB (PROTONIX) PO (06:37)
[2017-12-06] MEDS: DOCUSATE SODIUM 100 MG CAP PO (06:40)
[2017-12-06] MEDS: MIRALAX *UNIT DOSE* 17GM PACKET PO (06:40)
[2017-12-06] MEDS: (RENVELA) SEVELAMER **CARBONate** 800 MG TAB PO ×3 (08:00→18:00)
[2017-12-06] MEDS: IRON POLYSAC (NIFEREX) 150 MG CAP PO ×2 (09:00→22:11)
[2017-12-06] MEDS: LIDOCAINE 1% SDV 5 ML VIAL SQ (11:30)
[2017-12-06] MEDS: HEPARIN 1,000 UNITS/ML 10ML VIAL (FOR RADIOLOGY& DIALYSIS ONLY) IV (11:30)
[2017-12-06 21:49] LABS: ANION GAP 9 MEQ/L (8-16); BLOOD UREA NITROGEN 24 MG/DL (7-18); CALCIUM LEVEL 8.4 MG/DL (8.8-10.2); CARBON DIOXIDE LEVEL 29 MEQ/L (21-32); CHLORIDE LEVEL 98 MEQ/L (98-107); CPK CREATINE PHOSPHOKINASE 26 U/L (39-308); CREATININE FOR GFR 3.28 MG/DL (0.70-1.30); GLOMERULAR FILTRATION RATE 20.3 (>49); GLUCOSE, FASTING 151 MG/DL (70-100); MAGNESIUM LEVEL 2.1 MG/DL (1.8-2.4); MB/CK RELATIVE INDEX 10.38 (< OR =4); POTASSIUM SERUM 3.7 MEQ/L (3.5-5.1); SODIUM LEVEL 136 MEQ/L (136-145); TROPONIN I 0.02 NG/ML (< 0.10)
[2017-12-06] MEDS: ATORVASTATIN 20 MG TAB PO (22:11)
[2017-12-06] MEDS: SERTRALINE HCL 25 MG TABLET PO (22:12)
[2017-12-07] MEDS: IPRATROPIUM 0.5MG/ALBUTEROL 2.5MG INH SOL UD 3ML (DUONEB)(J7620) NEB ×4 (01:26→20:00)
[2017-12-07 05:24] LABS: BASO # 0.1 10^3/uL (0.0-0.2); BASO % 0.5 % (0.0-1.0); EOS # 0.1 10^3/uL (0.0-0.50); EOS % 1.1 % (0.0-3.0); HEMOGLOBIN 10.8 g/dl (13.5-17.5); LYMPH # 0.9 10^3/uL (1.5-4.5); LYMPH % 7.5 % (24.0-44.0); MEAN CORPUSCULAR HEMOGLOBIN 27.7 pg (27.0-33.0); MEAN CORPUSCULAR VOLUME 92.3 fl (80.0-96.0); MONO # 1.6 10^3/uL (0.0-0.8); MONO % 13.5 % (0.0-5.0); NEUTROPHILS # 8.4 10^3/uL (1.8-7.7); NEUTROPHILS % 72.4 % (36.0-66.0); PLATELET COUNT, AUTOMATED 285 10^3/uL (150-450); RED CELL DISTRIBUTION WIDTH 15.8 % (11.5-14.5); WHITE BLOOD COUNT 11.6 10^3/uL (4.0-10.0)
[2017-12-07] MEDS: SLF 3 ML SYR IV ×3 (05:37→21:07)
[2017-12-07] MEDS: HEPARIN SOD (PORCINE) 5000 UNITS/ML VIAL SC ×3 (05:37→21:07)
[2017-12-07 05:50] LABS: ALBUMIN 2.4 GM/DL (3.2-5.2); ALBUMIN/GLOBULIN RATIO 0.55 (1.00-1.93); ALKALINE PHOSPHATASE 142 U/L (45-117); ALT/SGPT 11 U/L (12-78); ANION GAP 9 MEQ/L (8-16); AST/SGOT 14 U/L (7-37); BILIRUBIN,TOTAL 0.7 MG/DL (0.2-1.0); BLOOD UREA NITROGEN 28 MG/DL (7-18); CALCIUM LEVEL 8.4 MG/DL (8.8-10.2); CARBON DIOXIDE LEVEL 30 MEQ/L (21-32); CHLORIDE LEVEL 97 MEQ/L (98-107); CREATININE FOR GFR 3.76 MG/DL (0.70-1.30); GLOMERULAR FILTRATION RATE 17.3 (>49); GLUCOSE, FASTING 112 MG/DL (70-100); POTASSIUM SERUM 3.7 MEQ/L (3.5-5.1); SODIUM LEVEL 136 MEQ/L (136-145); TOTAL PROTEIN 6.8 GM/DL (6.4-8.2)
[2017-12-07] MEDS: DOCUSATE SODIUM 100 MG CAP PO (09:32)
[2017-12-07] MEDS: PANTOPRAZOLE 40MG TAB (PROTONIX) PO (09:32)
[2017-12-07] MEDS: MIDODRINE 5 MG TAB PO ×3 (09:32→18:25)
[2017-12-07] MEDS: MIRALAX *UNIT DOSE* 17GM PACKET PO (09:32)
[2017-12-07] MEDS: IRON POLYSAC (NIFEREX) 150 MG CAP PO ×2 (09:32→21:06)
[2017-12-07] MEDS: GABAPENTIN 100 MG CAP PO ×2 (09:33→21:06)
[2017-12-07] MEDS: (RENVELA) SEVELAMER **CARBONate** 800 MG TAB PO ×3 (09:33→18:24)
[2017-12-07] MEDS: FOLIC ACID 1 MG TAB PO (09:33)
[2017-12-07] MEDS: NYSTATIN 100,000 UNITS/GM TOPICAL PWD 15 GM TOP (21:06)
[2017-12-07] MEDS: SERTRALINE HCL 25 MG TABLET PO (21:06)
[2017-12-07] MEDS: ATORVASTATIN 20 MG TAB PO (21:06)
[2017-12-08] MEDS: IPRATROPIUM 0.5MG/ALBUTEROL 2.5MG INH SOL UD 3ML (DUONEB)(J7620) NEB ×4 (01:37→20:00)
[2017-12-08] MEDS: HEPARIN SOD (PORCINE) 5000 UNITS/ML VIAL SC ×3 (05:12→20:37)
[2017-12-08] MEDS: SLF 3 ML SYR IV ×3 (05:15→20:37)
[2017-12-08 05:36] LABS: HEMATOCRIT 38.4 % (42.0-52.0); HEMOGLOBIN 11.2 g/dl (13.5-17.5); MEAN CORPUSCULAR HEMOGLOBIN 27.5 pg (27.0-33.0); MEAN CORPUSCULAR HGB CONC 29.2 g/dl (32.0-36.5); MEAN CORPUSCULAR VOLUME 94.3 fl (80.0-96.0); PLATELET COUNT, AUTOMATED 299 10^3/uL (150-450); RED BLOOD COUNT 4.07 10^6/uL (4.30-6.10); RED CELL DISTRIBUTION WIDTH 15.6 % (11.5-14.5); WHITE BLOOD COUNT 10.7 10^3/uL (4.0-10.0)
[2017-12-08 05:40] LABS: POS COUNT POS FLAG; POSITIVE MORPH POS FLAG
[2017-12-08 05:41] LABS: ADD MANUAL DIFFER YES; DIFF SLIDE NUMBER 13
[2017-12-08 06:05] LABS: ALBUMIN 2.4 GM/DL (3.2-5.2); ALBUMIN/GLOBULIN RATIO 0.52 (1.00-1.93); ALKALINE PHOSPHATASE 135 U/L (45-117); ALT/SGPT 10 U/L (12-78); ANION GAP 9 MEQ/L (8-16); AST/SGOT 18 U/L (7-37); BILIRUBIN,TOTAL 0.7 MG/DL (0.2-1.0); BLOOD UREA NITROGEN 38 MG/DL (7-18); CALCIUM LEVEL 8.2 MG/DL (8.8-10.2); CARBON DIOXIDE LEVEL 29 MEQ/L (21-32); CHLORIDE LEVEL 92 MEQ/L (98-107); CREATININE FOR GFR 5.01 MG/DL (0.70-1.30); GLOMERULAR FILTRATION RATE 12.4 (>49); GLUCOSE, FASTING 97 MG/DL (70-100); SODIUM LEVEL 130 MEQ/L (136-145)
[2017-12-08 06:36] LABS: EOSINOPHILS 4 % (0-5); LYMPHOCYTES 16 % (16-52); MONOCYTES 8 % (0-8); MYELOCYTES 5 % (0-0); NEUTROPHILS 67 % (35-75)
[2017-12-08 06:37] LABS: ANISOCYTOSIS 1+; HYPOCHROMASIA 1+; PLATELET ESTIMATE NORMAL (NORMAL)
[2017-12-08] MEDS: NYSTATIN 100,000 UNITS/GM TOPICAL PWD 15 GM TOP ×2 (08:55→20:37)
[2017-12-08] MEDS: MIRALAX *UNIT DOSE* 17GM PACKET PO (08:55)
[2017-12-08] MEDS: PATIROMER SORBITEX CALCIUM 8.4 GM POWDER PACKET (VELTASSA) PO (08:55)
[2017-12-08] MEDS: MIDODRINE 5 MG TAB PO ×3 (08:56→17:30)
[2017-12-08] MEDS: (RENVELA) SEVELAMER **CARBONate** 800 MG TAB PO ×3 (08:56→17:30)
[2017-12-08] MEDS: GABAPENTIN 100 MG CAP PO ×2 (08:56→20:36)
[2017-12-08] MEDS: DOCUSATE SODIUM 100 MG CAP PO (08:57)
[2017-12-08] MEDS: IRON POLYSAC (NIFEREX) 150 MG CAP PO ×2 (08:57→20:36)
[2017-12-08] MEDS: FOLIC ACID 1 MG TAB PO (08:57)
[2017-12-08] MEDS: PANTOPRAZOLE 40MG TAB (PROTONIX) PO (08:58)
[2017-12-08] MEDS: CEPACOL LOZENGE PO ×2 (17:30→18:34)
[2017-12-08] MEDS: ATORVASTATIN 20 MG TAB PO (20:35)
[2017-12-08] MEDS: SERTRALINE HCL 25 MG TABLET PO (20:36)
[2017-12-09] MEDS: IPRATROPIUM 0.5MG/ALBUTEROL 2.5MG INH SOL UD 3ML (DUONEB)(J7620) NEB ×4 (02:00→20:00)
[2017-12-09 05:23] LABS: HEMATOCRIT 36.2 % (42.0-52.0); HEMOGLOBIN 10.9 g/dl (13.5-17.5); MEAN CORPUSCULAR HEMOGLOBIN 27.9 pg (27.0-33.0); MEAN CORPUSCULAR HGB CONC 30.1 g/dl (32.0-36.5); MEAN CORPUSCULAR VOLUME 92.6 fl (80.0-96.0); PLATELET COUNT, AUTOMATED 290 10^3/uL (150-450); RED BLOOD COUNT 3.91 10^6/uL (4.30-6.10); RED CELL DISTRIBUTION WIDTH 15.9 % (11.5-14.5); WHITE BLOOD COUNT 10.6 10^3/uL (4.0-10.0)
[2017-12-09 05:28] LABS: ADD MANUAL DIFFER YES; DIFF SLIDE NUMBER 24; POS COUNT POS FLAG; POSITIVE MORPH POS FLAG
[2017-12-09 05:42] LABS: ALBUMIN 2.3 GM/DL (3.2-5.2); ALBUMIN/GLOBULIN RATIO 0.55 (1.00-1.93); ALKALINE PHOSPHATASE 141 U/L (45-117); ALT/SGPT 10 U/L (12-78); ANION GAP 10 MEQ/L (8-16); AST/SGOT 16 U/L (7-37); BILIRUBIN,TOTAL 0.7 MG/DL (0.2-1.0); BLOOD UREA NITROGEN 49 MG/DL (7-18); CARBON DIOXIDE LEVEL 27 MEQ/L (21-32); CHLORIDE LEVEL 92 MEQ/L (98-107); GLOMERULAR FILTRATION RATE 10.1 (>49); GLUCOSE, FASTING 110 MG/DL (70-100); POTASSIUM SERUM 4.3 MEQ/L (3.5-5.1); SODIUM LEVEL 129 MEQ/L (136-145); TOTAL PROTEIN 6.5 GM/DL (6.4-8.2)
[2017-12-09 05:53] LABS: EOSINOPHILS 3 % (0-5); LYMPHOCYTES 5 % (16-52); METAMYELOCYTES 1 % (0-0); MONOCYTES 6 % (0-8); MYELOCYTES 4 % (0-0); NEUTROPHILS 81 % (35-75); PLATELET ESTIMATE NORMAL (NORMAL)
[2017-12-09 05:54] LABS: ANISOCYTOSIS 1+; OVALOCYTES 1+
[2017-12-09] MEDS: SLF 3 ML SYR IV ×3 (06:00→21:22)
[2017-12-09] MEDS: HEPARIN SOD (PORCINE) 5000 UNITS/ML VIAL SC ×3 (06:59→21:21)
[2017-12-09] MEDS: (RENVELA) SEVELAMER **CARBONate** 800 MG TAB PO ×3 (07:00→17:45)
[2017-12-09] MEDS: MIRALAX *UNIT DOSE* 17GM PACKET PO (07:00)
[2017-12-09] MEDS: FOLIC ACID 1 MG TAB PO (07:01)
[2017-12-09] MEDS: MIDODRINE 5 MG TAB PO ×3 (07:01→17:45)
[2017-12-09] MEDS: DOCUSATE SODIUM 100 MG CAP PO (07:02)
[2017-12-09] MEDS: AMIODARONE 200 MG TAB (PACERONE) PO (07:02)
[2017-12-09] MEDS: IRON POLYSAC (NIFEREX) 150 MG CAP PO ×2 (07:02→21:21)
[2017-12-09] MEDS: GABAPENTIN 100 MG CAP PO ×2 (07:02→21:22)
[2017-12-09] MEDS: NYSTATIN 100,000 UNITS/GM TOPICAL PWD 15 GM TOP ×2 (07:02→21:22)
[2017-12-09] MEDS: PANTOPRAZOLE 40MG TAB (PROTONIX) PO (07:03)
[2017-12-09] MEDS: LIDOCAINE 1% SDV 5 ML VIAL SQ (11:00)
[2017-12-09] MEDS: HEPARIN 1,000 UNITS/ML 10ML VIAL (FOR RADIOLOGY& DIALYSIS ONLY) IV (11:00)
[2017-12-09] MEDS: ATORVASTATIN 20 MG TAB PO (21:21)
[2017-12-09] MEDS: SERTRALINE HCL 25 MG TABLET PO (21:22)
[2017-12-10] MEDS: IPRATROPIUM 0.5MG/ALBUTEROL 2.5MG INH SOL UD 3ML (DUONEB)(J7620) NEB ×4 (02:00→20:00)
[2017-12-10] MEDS: HEPARIN SOD (PORCINE) 5000 UNITS/ML VIAL SC ×3 (06:18→20:35)
[2017-12-10] MEDS: SLF 3 ML SYR IV ×3 (06:18→20:35)
[2017-12-10 08:53] LABS: HEMATOCRIT 38.7 % (42.0-52.0); HEMOGLOBIN 11.6 g/dl (13.5-17.5); MEAN CORPUSCULAR HEMOGLOBIN 28.1 pg (27.0-33.0); MEAN CORPUSCULAR VOLUME 93.7 fl (80.0-96.0); PLATELET COUNT, AUTOMATED 281 10^3/uL (150-450); RED BLOOD COUNT 4.13 10^6/uL (4.30-6.10); RED CELL DISTRIBUTION WIDTH 15.9 % (11.5-14.5); WHITE BLOOD COUNT 9.4 10^3/uL (4.0-10.0)
[2017-12-10] MEDS: IRON POLYSAC (NIFEREX) 150 MG CAP PO ×2 (09:21→20:34)
[2017-12-10] MEDS: DOCUSATE SODIUM 100 MG CAP PO (09:21)
[2017-12-10] MEDS: MIDODRINE 5 MG TAB PO ×3 (09:21→17:32)
[2017-12-10] MEDS: GABAPENTIN 100 MG CAP PO ×2 (09:21→20:34)
[2017-12-10] MEDS: PANTOPRAZOLE 40MG TAB (PROTONIX) PO (09:21)
[2017-12-10] MEDS: (RENVELA) SEVELAMER **CARBONate** 800 MG TAB PO ×3 (09:21→17:32)
[2017-12-10] MEDS: FOLIC ACID 1 MG TAB PO (09:22)
[2017-12-10] MEDS: PATIROMER SORBITEX CALCIUM 8.4 GM POWDER PACKET (VELTASSA) PO (09:22)
[2017-12-10] MEDS: MIRALAX *UNIT DOSE* 17GM PACKET PO (09:22)
[2017-12-10] MEDS: NYSTATIN 100,000 UNITS/GM TOPICAL PWD 15 GM TOP ×2 (09:22→20:34)
[2017-12-10 09:27] LABS: ALBUMIN 2.5 GM/DL (3.2-5.2); ANION GAP 8 MEQ/L (8-16); BLOOD UREA NITROGEN 29 MG/DL (7-18); CARBON DIOXIDE LEVEL 29 MEQ/L (21-32); CHLORIDE LEVEL 95 MEQ/L (98-107); CREATININE FOR GFR 4.36 MG/DL (0.70-1.30); GLOMERULAR FILTRATION RATE 14.6 (>49); GLUCOSE, FASTING 121 MG/DL (70-100); PHOSPHORUS LEVEL 2.6 MG/DL (2.5-4.9); SODIUM LEVEL 132 MEQ/L (136-145)
[2017-12-10] MEDS: SERTRALINE HCL 25 MG TABLET PO (20:34)
[2017-12-10] MEDS: ATORVASTATIN 20 MG TAB PO (20:34)
[2017-12-11] MEDS: IPRATROPIUM 0.5MG/ALBUTEROL 2.5MG INH SOL UD 3ML (DUONEB)(J7620) NEB ×4 (02:00→20:00)
[2017-12-11] MEDS: HEPARIN SOD (PORCINE) 5000 UNITS/ML VIAL SC ×3 (07:02→20:40)
[2017-12-11] MEDS: SLF 3 ML SYR IV ×3 (07:03→20:40)
[2017-12-11] MEDS: (RENVELA) SEVELAMER **CARBONate** 800 MG TAB PO ×3 (07:03→18:52)
[2017-12-11] MEDS: PANTOPRAZOLE 40MG TAB (PROTONIX) PO (07:03)
[2017-12-11] MEDS: AMIODARONE 200 MG TAB (PACERONE) PO (07:04)
[2017-12-11] MEDS: IRON POLYSAC (NIFEREX) 150 MG CAP PO ×2 (07:04→20:38)
[2017-12-11] MEDS: MIDODRINE 5 MG TAB PO ×3 (07:04→18:52)
[2017-12-11] MEDS: FOLIC ACID 1 MG TAB PO (07:04)
[2017-12-11] MEDS: GABAPENTIN 100 MG CAP PO ×2 (07:04→20:39)
[2017-12-11] MEDS: DOCUSATE SODIUM 100 MG CAP PO (07:04)
[2017-12-11] MEDS: PATIROMER SORBITEX CALCIUM 8.4 GM POWDER PACKET (VELTASSA) PO (07:04)
[2017-12-11] MEDS: MIRALAX *UNIT DOSE* 17GM PACKET PO (07:04)
[2017-12-11] MEDS: NYSTATIN 100,000 UNITS/GM TOPICAL PWD 15 GM TOP ×2 (07:05→20:39)
[2017-12-11 07:54] LABS: BASO # 0.1 10^3/uL (0.0-0.2); BASO % 1.1 % (0.0-1.0); EOS # 0.2 10^3/uL (0.0-0.50); EOS % 2.3 % (0.0-3.0); HEMATOCRIT 39.2 % (42.0-52.0); HEMOGLOBIN 11.5 g/dl (13.5-17.5); IMMATURE GRANULOCYTE % 4.9 % (0-3.0); LYMPH % 9.7 % (24.0-44.0); MEAN CORPUSCULAR HEMOGLOBIN 27.8 pg (27.0-33.0); MEAN CORPUSCULAR HGB CONC 29.3 g/dl (32.0-36.5); MEAN CORPUSCULAR VOLUME 94.7 fl (80.0-96.0); MONO # 1.6 10^3/uL (0.0-0.8); MONO % 15.8 % (0.0-5.0); NEUTROPHILS # 6.7 10^3/uL (1.8-7.7); NEUTROPHILS % 66.2 % (36.0-66.0); PLATELET COUNT, AUTOMATED 303 10^3/uL (150-450); RED BLOOD COUNT 4.14 10^6/uL (4.30-6.10); RED CELL DISTRIBUTION WIDTH 15.9 % (11.5-14.5); WHITE BLOOD COUNT 10.1 10^3/uL (4.0-10.0)
[2017-12-11 08:08] LABS: ALBUMIN 2.6 GM/DL (3.2-5.2); ALBUMIN/GLOBULIN RATIO 0.52 (1.00-1.93); ALKALINE PHOSPHATASE 162 U/L (45-117); ALT/SGPT 12 U/L (12-78); ANION GAP 9 MEQ/L (8-16); AST/SGOT 16 U/L (7-37); BILIRUBIN,TOTAL 0.9 MG/DL (0.2-1.0); BLOOD UREA NITROGEN 37 MG/DL (7-18); CALCIUM LEVEL 8.6 MG/DL (8.8-10.2); CARBON DIOXIDE LEVEL 28 MEQ/L (21-32); CHLORIDE LEVEL 91 MEQ/L (98-107); CREATININE FOR GFR 5.38 MG/DL (0.70-1.30); GLOMERULAR FILTRATION RATE 11.5 (>49); GLUCOSE, FASTING 89 MG/DL (70-100); MAGNESIUM LEVEL 2.4 MG/DL (1.8-2.4); POTASSIUM SERUM 4.5 MEQ/L (3.5-5.1); SODIUM LEVEL 128 MEQ/L (136-145); TOTAL PROTEIN 7.6 GM/DL (6.4-8.2)
[2017-12-11] MEDS: HEPARIN 1,000 UNITS/ML 10ML VIAL (FOR RADIOLOGY& DIALYSIS ONLY) IV (11:15)
[2017-12-11] MEDS: LIDOCAINE 1% SDV 5 ML VIAL SQ (11:15)
[2017-12-11] MEDS: ATORVASTATIN 20 MG TAB PO (20:38)
[2017-12-11] MEDS: SERTRALINE HCL 25 MG TABLET PO (20:39)
[2017-12-12] MEDS: IPRATROPIUM 0.5MG/ALBUTEROL 2.5MG INH SOL UD 3ML (DUONEB)(J7620) NEB ×4 (02:00→20:00)
[2017-12-12] MEDS: SLF 3 ML SYR IV ×3 (06:19→21:38)
[2017-12-12] MEDS: HEPARIN SOD (PORCINE) 5000 UNITS/ML VIAL SC ×3 (06:19→21:38)
[2017-12-12 06:50] LABS: BASO # 0.1 10^3/uL (0.0-0.2); BASO % 0.9 % (0.0-1.0); EOS # 0.2 10^3/uL (0.0-0.50); EOS % 1.5 % (0.0-3.0); HEMOGLOBIN 11.9 g/dl (13.5-17.5); IMMATURE GRANULOCYTE % 4.3 % (0-3.0); LYMPH # 0.9 10^3/uL (1.5-4.5); LYMPH % 9.4 % (24.0-44.0); MEAN CORPUSCULAR HEMOGLOBIN 28.2 pg (27.0-33.0); MEAN CORPUSCULAR HGB CONC 29.8 g/dl (32.0-36.5); MEAN CORPUSCULAR VOLUME 94.8 fl (80.0-96.0); MONO # 1.7 10^3/uL (0.0-0.8); MONO % 17.8 % (0.0-5.0); NEUTROPHILS # 6.4 10^3/uL (1.8-7.7); NEUTROPHILS % 66.1 % (36.0-66.0); PLATELET COUNT, AUTOMATED 274 10^3/uL (150-450); RED BLOOD COUNT 4.22 10^6/uL (4.30-6.10); WHITE BLOOD COUNT 9.7 10^3/uL (4.0-10.0)
[2017-12-12 07:43] LABS: ALBUMIN 2.5 GM/DL (3.2-5.2); ALBUMIN/GLOBULIN RATIO 0.49 (1.00-1.93); ALKALINE PHOSPHATASE 156 U/L (45-117); ALT/SGPT 12 U/L (12-78); ANION GAP 10 MEQ/L (8-16); AST/SGOT 20 U/L (7-37); BILIRUBIN,TOTAL 0.8 MG/DL (0.2-1.0); BLOOD UREA NITROGEN 22 MG/DL (7-18); CALCIUM LEVEL 8.4 MG/DL (8.8-10.2); CARBON DIOXIDE LEVEL 28 MEQ/L (21-32); CHLORIDE LEVEL 94 MEQ/L (98-107); CREATININE FOR GFR 4.07 MG/DL (0.70-1.30); GLOMERULAR FILTRATION RATE 15.8 (>49); GLUCOSE, FASTING 92 MG/DL (70-100); MAGNESIUM LEVEL 2.1 MG/DL (1.8-2.4); POTASSIUM SERUM 4.1 MEQ/L (3.5-5.1); SODIUM LEVEL 132 MEQ/L (136-145); TOTAL PROTEIN 7.6 GM/DL (6.4-8.2)
[2017-12-12] MEDS: FOLIC ACID 1 MG TAB PO (08:17)
[2017-12-12] MEDS: MIDODRINE 5 MG TAB PO ×3 (08:17→17:47)
[2017-12-12] MEDS: GABAPENTIN 100 MG CAP PO ×2 (08:18→21:37)
[2017-12-12] MEDS: DOCUSATE SODIUM 100 MG CAP PO (08:18)
[2017-12-12] MEDS: IRON POLYSAC (NIFEREX) 150 MG CAP PO ×2 (08:18→21:38)
[2017-12-12] MEDS: PANTOPRAZOLE 40MG TAB (PROTONIX) PO (08:21)
[2017-12-12] MEDS: (RENVELA) SEVELAMER **CARBONate** 800 MG TAB PO ×3 (08:21→17:47)
[2017-12-12] MEDS: NYSTATIN 100,000 UNITS/GM TOPICAL PWD 15 GM TOP ×2 (08:22→21:38)
[2017-12-12] MEDS: MIRALAX *UNIT DOSE* 17GM PACKET PO (08:22)
[2017-12-12] MEDS: SERTRALINE HCL 25 MG TABLET PO (21:38)
[2017-12-12] MEDS: ATORVASTATIN 20 MG TAB PO (21:38)
[2017-12-13] MEDS: IPRATROPIUM 0.5MG/ALBUTEROL 2.5MG INH SOL UD 3ML (DUONEB)(J7620) NEB ×4 (02:00→20:00)
[2017-12-13] MEDS: HEPARIN SOD (PORCINE) 5000 UNITS/ML VIAL SC ×3 (06:18→21:37)
[2017-12-13] MEDS: IRON POLYSAC (NIFEREX) 150 MG CAP PO ×2 (06:19→21:37)
[2017-12-13] MEDS: SLF 3 ML SYR IV ×3 (06:19→21:38)
[2017-12-13] MEDS: DOCUSATE SODIUM 100 MG CAP PO (06:19)
[2017-12-13] MEDS: PANTOPRAZOLE 40MG TAB (PROTONIX) PO (06:19)
[2017-12-13] MEDS: MIDODRINE 5 MG TAB PO ×3 (06:20→17:42)
[2017-12-13] MEDS: FOLIC ACID 1 MG TAB PO (06:20)
[2017-12-13] MEDS: AMIODARONE 200 MG TAB (PACERONE) PO (06:20)
[2017-12-13] MEDS: GABAPENTIN 100 MG CAP PO ×2 (06:20→21:38)
[2017-12-13] MEDS: (RENVELA) SEVELAMER **CARBONate** 800 MG TAB PO ×3 (06:21→17:42)
[2017-12-13] MEDS: MIRALAX *UNIT DOSE* 17GM PACKET PO (06:21)
[2017-12-13 06:42] LABS: BASO # 0.1 10^3/uL (0.0-0.2); EOS # 0.2 10^3/uL (0.0-0.50); EOS % 2.1 % (0.0-3.0); HEMATOCRIT 38.9 % (42.0-52.0); HEMOGLOBIN 11.6 g/dl (13.5-17.5); IMMATURE GRANULOCYTE % 4.1 % (0-3.0); LYMPH % 10.3 % (24.0-44.0); MEAN CORPUSCULAR HEMOGLOBIN 27.8 pg (27.0-33.0); MEAN CORPUSCULAR HGB CONC 29.8 g/dl (32.0-36.5); MEAN CORPUSCULAR VOLUME 93.1 fl (80.0-96.0); MONO # 1.7 10^3/uL (0.0-0.8); MONO % 17.7 % (0.0-5.0); NEUTROPHILS % 64.8 % (36.0-66.0); PLATELET COUNT, AUTOMATED 273 10^3/uL (150-450); RED BLOOD COUNT 4.18 10^6/uL (4.30-6.10); RED CELL DISTRIBUTION WIDTH 16.1 % (11.5-14.5); WHITE BLOOD COUNT 9.3 10^3/uL (4.0-10.0)
[2017-12-13 07:13] LABS: ALBUMIN 2.6 GM/DL (3.2-5.2); ALBUMIN/GLOBULIN RATIO 0.57 (1.00-1.93); ALKALINE PHOSPHATASE 151 U/L (45-117); ALT/SGPT 11 U/L (12-78); ANION GAP 10 MEQ/L (8-16); AST/SGOT 19 U/L (7-37); BILIRUBIN,TOTAL 0.8 MG/DL (0.2-1.0); BLOOD UREA NITROGEN 36 MG/DL (7-18); CALCIUM LEVEL 8.9 MG/DL (8.8-10.2); CARBON DIOXIDE LEVEL 28 MEQ/L (21-32); CHLORIDE LEVEL 93 MEQ/L (98-107); CREATININE FOR GFR 5.28 MG/DL (0.70-1.30); GLOMERULAR FILTRATION RATE 11.7 (>49); GLUCOSE, FASTING 106 MG/DL (70-100); MAGNESIUM LEVEL 2.3 MG/DL (1.8-2.4); POTASSIUM SERUM 4.2 MEQ/L (3.5-5.1); SODIUM LEVEL 131 MEQ/L (136-145); TOTAL PROTEIN 7.2 GM/DL (6.4-8.2)
[2017-12-13] MEDS: NYSTATIN 100,000 UNITS/GM TOPICAL PWD 15 GM TOP ×2 (07:43→21:00)
[2017-12-13] MEDS: LIDOCAINE 1% SDV 5 ML VIAL SQ (10:45)
[2017-12-13] MEDS: HEPARIN 1,000 UNITS/ML 10ML VIAL (FOR RADIOLOGY& DIALYSIS ONLY) IV (10:45)
[2017-12-13] MEDS: SERTRALINE HCL 25 MG TABLET PO (21:37)
[2017-12-13] MEDS: ATORVASTATIN 20 MG TAB PO (21:38)
[2017-12-14] MEDS: IPRATROPIUM 0.5MG/ALBUTEROL 2.5MG INH SOL UD 3ML (DUONEB)(J7620) NEB (01:07)
[2017-12-14] MEDS: HEPARIN SOD (PORCINE) 5000 UNITS/ML VIAL SC ×3 (05:52→20:31)
[2017-12-14] MEDS: SLF 3 ML SYR IV ×3 (05:52→20:32)
[2017-12-14 06:41] LABS: BASO # 0.1 10^3/uL (0.0-0.2); BASO % 1.1 % (0.0-1.0); EOS # 0.2 10^3/uL (0.0-0.50); EOS % 2.3 % (0.0-3.0); HEMATOCRIT 40.3 % (42.0-52.0); HEMOGLOBIN 11.9 g/dl (13.5-17.5); LYMPH # 1.1 10^3/uL (1.5-4.5); LYMPH % 11.2 % (24.0-44.0); MEAN CORPUSCULAR HEMOGLOBIN 28.1 pg (27.0-33.0); MEAN CORPUSCULAR HGB CONC 29.5 g/dl (32.0-36.5); MONO # 1.6 10^3/uL (0.0-0.8); MONO % 16.1 % (0.0-5.0); NEUTROPHILS # 6.4 10^3/uL (1.8-7.7); NEUTROPHILS % 65.3 % (36.0-66.0); PLATELET COUNT, AUTOMATED 299 10^3/uL (150-450); RED BLOOD COUNT 4.24 10^6/uL (4.30-6.10); RED CELL DISTRIBUTION WIDTH 16.2 % (11.5-14.5); WHITE BLOOD COUNT 9.8 10^3/uL (4.0-10.0)
[2017-12-14 07:04] LABS: ALBUMIN 2.6 GM/DL (3.2-5.2); ALBUMIN/GLOBULIN RATIO 0.54 (1.00-1.93); ALKALINE PHOSPHATASE 169 U/L (45-117); ALT/SGPT 15 U/L (12-78); ANION GAP 9 MEQ/L (8-16); AST/SGOT 16 U/L (7-37); BILIRUBIN,TOTAL 0.8 MG/DL (0.2-1.0); BLOOD UREA NITROGEN 27 MG/DL (7-18); CALCIUM LEVEL 8.8 MG/DL (8.8-10.2); CARBON DIOXIDE LEVEL 28 MEQ/L (21-32); CHLORIDE LEVEL 95 MEQ/L (98-107); CREATININE FOR GFR 4.47 MG/DL (0.70-1.30); GLOMERULAR FILTRATION RATE 14.2 (>49); GLUCOSE, FASTING 95 MG/DL (70-100); MAGNESIUM LEVEL 2.3 MG/DL (1.8-2.4); POTASSIUM SERUM 4.4 MEQ/L (3.5-5.1); SODIUM LEVEL 132 MEQ/L (136-145); TOTAL PROTEIN 7.4 GM/DL (6.4-8.2)
[2017-12-14] MEDS: MIRALAX *UNIT DOSE* 17GM PACKET PO (08:52)
[2017-12-14] MEDS: FOLIC ACID 1 MG TAB PO (08:52)
[2017-12-14] MEDS: IRON POLYSAC (NIFEREX) 150 MG CAP PO ×2 (08:52→20:31)
[2017-12-14] MEDS: NYSTATIN 100,000 UNITS/GM TOPICAL PWD 15 GM TOP ×2 (08:52→20:32)
[2017-12-14] MEDS: MIDODRINE 5 MG TAB PO ×3 (08:52→17:31)
[2017-12-14] MEDS: DOCUSATE SODIUM 100 MG CAP PO (08:52)
[2017-12-14] MEDS: PANTOPRAZOLE 40MG TAB (PROTONIX) PO (08:52)
[2017-12-14] MEDS: GABAPENTIN 100 MG CAP PO ×2 (08:52→20:31)
[2017-12-14] MEDS: (RENVELA) SEVELAMER **CARBONate** 800 MG TAB PO ×3 (08:52→17:31)
[2017-12-14] MEDS: SERTRALINE HCL 25 MG TABLET PO (20:32)
[2017-12-14] MEDS: ATORVASTATIN 20 MG TAB PO (20:32)
[2017-12-15] MEDS: HEPARIN SOD (PORCINE) 5000 UNITS/ML VIAL SC ×3 (05:32→21:30)
[2017-12-15] MEDS: SLF 3 ML SYR IV ×3 (05:32→22:00)
[2017-12-15 06:49] LABS: BASO # 0.1 10^3/uL (0.0-0.2); BASO % 0.9 % (0.0-1.0); EOS # 0.2 10^3/uL (0.0-0.50); EOS % 2.3 % (0.0-3.0); HEMOGLOBIN 10.7 g/dl (13.5-17.5); IMMATURE GRANULOCYTE % 2.4 % (0-3.0); LYMPH % 11.4 % (24.0-44.0); MEAN CORPUSCULAR HEMOGLOBIN 27.9 pg (27.0-33.0); MEAN CORPUSCULAR HGB CONC 29.7 g/dl (32.0-36.5); MONO # 1.5 10^3/uL (0.0-0.8); MONO % 16.4 % (0.0-5.0); NEUTROPHILS % 66.6 % (36.0-66.0); PLATELET COUNT, AUTOMATED 289 10^3/uL (150-450); RED BLOOD COUNT 3.83 10^6/uL (4.30-6.10); RED CELL DISTRIBUTION WIDTH 16.2 % (11.5-14.5)
[2017-12-15 07:27] LABS: ALBUMIN 2.3 GM/DL (3.2-5.2); ALBUMIN/GLOBULIN RATIO 0.53 (1.00-1.93); ALKALINE PHOSPHATASE 142 U/L (45-117); ALT/SGPT 10 U/L (12-78); ANION GAP 8 MEQ/L (8-16); AST/SGOT 18 U/L (7-37); BILIRUBIN,TOTAL 0.8 MG/DL (0.2-1.0); BLOOD UREA NITROGEN 41 MG/DL (7-18); CALCIUM LEVEL 7.8 MG/DL (8.8-10.2); CARBON DIOXIDE LEVEL 27 MEQ/L (21-32); CHLORIDE LEVEL 94 MEQ/L (98-107); CREATININE FOR GFR 5.68 MG/DL (0.70-1.30); GLOMERULAR FILTRATION RATE 10.8 (>49); GLUCOSE, FASTING 100 MG/DL (70-100); MAGNESIUM LEVEL 2.2 MG/DL (1.8-2.4); POTASSIUM SERUM 4.5 MEQ/L (3.5-5.1); SODIUM LEVEL 129 MEQ/L (136-145); TOTAL PROTEIN 6.6 GM/DL (6.4-8.2)
[2017-12-15] MEDS: PATIROMER SORBITEX CALCIUM 8.4 GM POWDER PACKET (VELTASSA) PO (08:26)
[2017-12-15] MEDS: MIDODRINE 5 MG TAB PO ×3 (08:26→18:13)
[2017-12-15] MEDS: GABAPENTIN 100 MG CAP PO ×2 (08:26→20:03)
[2017-12-15] MEDS: MIRALAX *UNIT DOSE* 17GM PACKET PO (08:26)
[2017-12-15] MEDS: FOLIC ACID 1 MG TAB PO (08:27)
[2017-12-15] MEDS: DOCUSATE SODIUM 100 MG CAP PO (08:27)
[2017-12-15] MEDS: PANTOPRAZOLE 40MG TAB (PROTONIX) PO (08:27)
[2017-12-15] MEDS: (RENVELA) SEVELAMER **CARBONate** 800 MG TAB PO ×3 (08:27→18:13)
[2017-12-15] MEDS: IRON POLYSAC (NIFEREX) 150 MG CAP PO ×2 (08:27→20:03)
[2017-12-15] MEDS: NYSTATIN 100,000 UNITS/GM TOPICAL PWD 15 GM TOP ×2 (08:28→20:04)
[2017-12-15] MEDS: SERTRALINE HCL 25 MG TABLET PO (20:03)
[2017-12-15] MEDS: ATORVASTATIN 20 MG TAB PO (20:03)
[2017-12-16] MEDS: SLF 3 ML SYR IV ×3 (05:43→21:35)
[2017-12-16 06:00] LABS: BASO # 0.1 10^3/uL (0.0-0.2); BASO % 0.8 % (0.0-1.0); EOS # 0.2 10^3/uL (0.0-0.50); EOS % 2.3 % (0.0-3.0); HEMATOCRIT 39.6 % (42.0-52.0); HEMOGLOBIN 11.5 g/dl (13.5-17.5); IMMATURE GRANULOCYTE % 2.3 % (0-3.0); LYMPH % 9.9 % (24.0-44.0); MEAN CORPUSCULAR HEMOGLOBIN 27.5 pg (27.0-33.0); MEAN CORPUSCULAR VOLUME 94.7 fl (80.0-96.0); MONO # 1.8 10^3/uL (0.0-0.8); MONO % 17.7 % (0.0-5.0); NEUTROPHILS # 6.7 10^3/uL (1.8-7.7); PLATELET COUNT, AUTOMATED 295 10^3/uL (150-450); RED BLOOD COUNT 4.18 10^6/uL (4.30-6.10); RED CELL DISTRIBUTION WIDTH 16.4 % (11.5-14.5)
[2017-12-16] MEDS: HEPARIN SOD (PORCINE) 5000 UNITS/ML VIAL SC ×3 (06:00→21:26)
[2017-12-16 06:53] LABS: ALBUMIN 2.7 GM/DL (3.2-5.2); ALBUMIN/GLOBULIN RATIO 0.55 (1.00-1.93); ALKALINE PHOSPHATASE 162 U/L (45-117); ALT/SGPT 11 U/L (12-78); ANION GAP 12 MEQ/L (8-16); AST/SGOT 19 U/L (7-37); BILIRUBIN,TOTAL 0.7 MG/DL (0.2-1.0); BLOOD UREA NITROGEN 48 MG/DL (7-18); CALCIUM LEVEL 8.7 MG/DL (8.8-10.2); CARBON DIOXIDE LEVEL 21 MEQ/L (21-32); CHLORIDE LEVEL 95 MEQ/L (98-107); CREATININE FOR GFR 6.56 MG/DL (0.70-1.30); GLOMERULAR FILTRATION RATE 9.1 (>49); GLUCOSE, FASTING 98 MG/DL (70-100); MAGNESIUM LEVEL 2.5 MG/DL (1.8-2.4); POTASSIUM SERUM 4.8 MEQ/L (3.5-5.1); SODIUM LEVEL 128 MEQ/L (136-145); TOTAL PROTEIN 7.6 GM/DL (6.4-8.2)
[2017-12-16] MEDS: IRON POLYSAC (NIFEREX) 150 MG CAP PO ×2 (08:34→21:25)
[2017-12-16] MEDS: GABAPENTIN 100 MG CAP PO ×2 (08:34→21:26)
[2017-12-16] MEDS: MIRALAX *UNIT DOSE* 17GM PACKET PO (08:34)
[2017-12-16] MEDS: PANTOPRAZOLE 40MG TAB (PROTONIX) PO (08:35)
[2017-12-16] MEDS: FOLIC ACID 1 MG TAB PO (08:35)
[2017-12-16] MEDS: (RENVELA) SEVELAMER **CARBONate** 800 MG TAB PO ×3 (08:35→17:05)
[2017-12-16] MEDS: MIDODRINE 5 MG TAB PO ×3 (08:35→17:05)
[2017-12-16] MEDS: AMIODARONE 200 MG TAB (PACERONE) PO (08:35)
[2017-12-16] MEDS: NYSTATIN 100,000 UNITS/GM TOPICAL PWD 15 GM TOP ×2 (08:35→21:26)
[2017-12-16] MEDS: DOCUSATE SODIUM 100 MG CAP PO (08:35)
[2017-12-16] MEDS: HEPARIN 1,000 UNITS/ML 10ML VIAL (FOR RADIOLOGY& DIALYSIS ONLY) IV (10:13)
[2017-12-16] MEDS: LIDOCAINE 1% SDV 5 ML VIAL SQ (10:13)
[2017-12-16] MEDS: ATORVASTATIN 20 MG TAB PO (21:25)
[2017-12-16] MEDS: SERTRALINE HCL 25 MG TABLET PO (21:26)
[2017-12-17] MEDS: HEPARIN SOD (PORCINE) 5000 UNITS/ML VIAL SC ×3 (05:31→20:46)
[2017-12-17] MEDS: SLF 3 ML SYR IV ×4 (06:00→20:46)
[2017-12-17 06:53] LABS: BASO # 0.1 10^3/uL (0.0-0.2); BASO % 0.8 % (0.0-1.0); EOS # 0.2 10^3/uL (0.0-0.50); EOS % 2.2 % (0.0-3.0); HEMATOCRIT 37.7 % (42.0-52.0); HEMOGLOBIN 10.9 g/dl (13.5-17.5); IMMATURE GRANULOCYTE % 2.2 % (0-3.0); LYMPH # 0.9 10^3/uL (1.5-4.5); LYMPH % 10.2 % (24.0-44.0); MEAN CORPUSCULAR HEMOGLOBIN 27.8 pg (27.0-33.0); MEAN CORPUSCULAR HGB CONC 28.9 g/dl (32.0-36.5); MEAN CORPUSCULAR VOLUME 96.2 fl (80.0-96.0); MONO # 1.6 10^3/uL (0.0-0.8); MONO % 18.2 % (0.0-5.0); NEUTROPHILS # 5.8 10^3/uL (1.8-7.7); NEUTROPHILS % 66.4 % (36.0-66.0); PLATELET COUNT, AUTOMATED 274 10^3/uL (150-450); RED BLOOD COUNT 3.92 10^6/uL (4.30-6.10); RED CELL DISTRIBUTION WIDTH 16.6 % (11.5-14.5); WHITE BLOOD COUNT 8.7 10^3/uL (4.0-10.0)
[2017-12-17 07:18] LABS: ALBUMIN 2.3 GM/DL (3.2-5.2); ALBUMIN/GLOBULIN RATIO 0.53 (1.00-1.93); ALKALINE PHOSPHATASE 156 U/L (45-117); ALT/SGPT 12 U/L (12-78); ANION GAP 8 MEQ/L (8-16); AST/SGOT 15 U/L (7-37); BILIRUBIN,TOTAL 0.7 MG/DL (0.2-1.0); BLOOD UREA NITROGEN 26 MG/DL (7-18); CALCIUM LEVEL 7.9 MG/DL (8.8-10.2); CARBON DIOXIDE LEVEL 30 MEQ/L (21-32); CHLORIDE LEVEL 96 MEQ/L (98-107); CREATININE FOR GFR 4.37 MG/DL (0.70-1.30); GLOMERULAR FILTRATION RATE 14.6 (>49); GLUCOSE, FASTING 91 MG/DL (70-100); MAGNESIUM LEVEL 2.1 MG/DL (1.8-2.4); POTASSIUM SERUM 4.2 MEQ/L (3.5-5.1); SODIUM LEVEL 134 MEQ/L (136-145); TOTAL PROTEIN 6.6 GM/DL (6.4-8.2)
[2017-12-17] MEDS: IRON POLYSAC (NIFEREX) 150 MG CAP PO ×2 (08:16→20:46)
[2017-12-17] MEDS: PATIROMER SORBITEX CALCIUM 8.4 GM POWDER PACKET (VELTASSA) PO (08:16)
[2017-12-17] MEDS: (RENVELA) SEVELAMER **CARBONate** 800 MG TAB PO ×3 (08:16→17:45)
[2017-12-17] MEDS: PANTOPRAZOLE 40MG TAB (PROTONIX) PO (08:16)
[2017-12-17] MEDS: FOLIC ACID 1 MG TAB PO (08:16)
[2017-12-17] MEDS: MIRALAX *UNIT DOSE* 17GM PACKET PO (08:16)
[2017-12-17] MEDS: MIDODRINE 5 MG TAB PO ×3 (08:16→17:45)
[2017-12-17] MEDS: DOCUSATE SODIUM 100 MG CAP PO (08:16)
[2017-12-17] MEDS: GABAPENTIN 100 MG CAP PO ×2 (08:16→20:46)
[2017-12-17] MEDS: NYSTATIN 100,000 UNITS/GM TOPICAL PWD 15 GM TOP ×2 (08:17→20:47)
[2017-12-17] MEDS: ATORVASTATIN 20 MG TAB PO (20:45)
[2017-12-17] MEDS: SERTRALINE HCL 25 MG TABLET PO (20:46)
[2017-12-18] MEDS: HEPARIN SOD (PORCINE) 5000 UNITS/ML VIAL SC (05:54)
[2017-12-18 06:24] LABS: BASO # 0.1 10^3/uL (0.0-0.2); BASO % 0.9 % (0.0-1.0); EOS # 0.2 10^3/uL (0.0-0.50); EOS % 1.7 % (0.0-3.0); HEMATOCRIT 41.2 % (42.0-52.0); IMMATURE GRANULOCYTE % 1.6 % (0-3.0); LYMPH % 11.1 % (24.0-44.0); MEAN CORPUSCULAR HEMOGLOBIN 28.2 pg (27.0-33.0); MEAN CORPUSCULAR HGB CONC 29.1 g/dl (32.0-36.5); MEAN CORPUSCULAR VOLUME 96.7 fl (80.0-96.0); MONO # 1.4 10^3/uL (0.0-0.8); MONO % 15.4 % (0.0-5.0); NEUTROPHILS # 6.2 10^3/uL (1.8-7.7); NEUTROPHILS % 69.3 % (36.0-66.0); PLATELET COUNT, AUTOMATED 291 10^3/uL (150-450); RED BLOOD COUNT 4.26 10^6/uL (4.30-6.10); RED CELL DISTRIBUTION WIDTH 16.5 % (11.5-14.5)
[2017-12-18 06:48] LABS: ALBUMIN 2.4 GM/DL (3.2-5.2); ALBUMIN/GLOBULIN RATIO 0.56 (1.00-1.93); ALKALINE PHOSPHATASE 152 U/L (45-117); ALT/SGPT 11 U/L (12-78); ANION GAP 6 MEQ/L (8-16); AST/SGOT 19 U/L (7-37); BILIRUBIN,TOTAL 0.7 MG/DL (0.2-1.0); BLOOD UREA NITROGEN 40 MG/DL (7-18); CALCIUM LEVEL 8.5 MG/DL (8.8-10.2); CARBON DIOXIDE LEVEL 30 MEQ/L (21-32); CHLORIDE LEVEL 97 MEQ/L (98-107); CREATININE FOR GFR 5.57 MG/DL (0.70-1.30); GLUCOSE, FASTING 101 MG/DL (70-100); MAGNESIUM LEVEL 2.4 MG/DL (1.8-2.4); POTASSIUM SERUM 5.1 MEQ/L (3.5-5.1); SODIUM LEVEL 133 MEQ/L (136-145); TOTAL PROTEIN 6.7 GM/DL (6.4-8.2)
[2017-12-18] MEDS: (RENVELA) SEVELAMER **CARBONate** 800 MG TAB PO (08:45)
[2017-12-18] MEDS: DOCUSATE SODIUM 100 MG CAP PO (08:45)
[2017-12-18] MEDS: PANTOPRAZOLE 40MG TAB (PROTONIX) PO (08:45)
[2017-12-18] MEDS: FOLIC ACID 1 MG TAB PO (08:45)
[2017-12-18] MEDS: PATIROMER SORBITEX CALCIUM 8.4 GM POWDER PACKET (VELTASSA) PO (08:46)
[2017-12-18] MEDS: IRON POLYSAC (NIFEREX) 150 MG CAP PO (08:46)
[2017-12-18] MEDS: MIRALAX *UNIT DOSE* 17GM PACKET PO (08:46)
[2017-12-18] MEDS: NYSTATIN 100,000 UNITS/GM TOPICAL PWD 15 GM TOP (08:46)
[2017-12-18] MEDS: AMIODARONE 200 MG TAB (PACERONE) PO (08:46)
[2017-12-18] MEDS: MIDODRINE 5 MG TAB PO (08:46)
[2017-12-18] MEDS: GABAPENTIN 100 MG CAP PO (08:46)
== END 2017-12-18 11:22 | disposition home or self-care (01) | DRG 194 ==
LOC: M MSPAV 12-11 19:32 → M ED 17:03 → M PCU 12-05 17:32 → M ED INP 21:47 → M ICU 23:13
PROC: 0W9G3ZZ Drainage of Peritoneal Cavity, Percutaneous Approach (ICD-10-PCS; principal; 2017-12-05)
PROC: 5A1D70Z Performance of Urinary Filtration, Intermittent, Less than 6 Hours Per Day (ICD-10-PCS; 2017-12-16)
PROC: 0W9G3ZZ Drainage of Peritoneal Cavity, Percutaneous Approach (ICD-10-PCS; 2017-12-17)
DX: I50.23 Acute on chronic systolic (congestive) heart failure (principal); J96.01 Acute respiratory failure with hypoxia; I95.89 Other hypotension; N18.6 End stage renal disease; J90 Pleural effusion, not elsewhere classified; I27.21 Secondary pulmonary arterial hypertension; R18.8 Other ascites; E11.22 Type 2 diabetes mellitus with diabetic chronic kidney disease; E11.42 Type 2 diabetes mellitus with diabetic polyneuropathy; K74.60 Unspecified cirrhosis of liver; E87.1 Hypo-osmolality and hyponatremia; I50.813 Acute on chronic right heart failure; E87.5 Hyperkalemia; Z95.1 Presence of aortocoronary bypass graft; I25.10 Atherosclerotic heart disease of native coronary artery without angina pectoris; F32.9 Major depressive disorder, single episode, unspecified; B34.8 Other viral infections of unspecified site; E78.5 Hyperlipidemia, unspecified; K59.00 Constipation, unspecified; D63.1 Anemia in chronic kidney disease; Z79.899 Other long term (current) drug therapy; Z99.2 Dependence on renal dialysis; Y95 Nosocomial condition

== ENCOUNTER 2017-12-30 00:34 | Inpatient (IN) | payer BC, MEDICARE ==
[2017-12-30] MEDS: FUROSEMIDE 100 MG/10 ML VIAL (J1940) IV ×2 (01:30→02:06)
[2017-12-30 01:41] LABS: BASO # 0.1 10^3/uL (0.0-0.2); BASO % 0.9 % (0.0-1.0); EOS # 0.2 10^3/uL (0.0-0.50); EOS % 1.4 % (0.0-3.0); HEMATOCRIT 44.1 % (42.0-52.0); HEMOGLOBIN 12.5 g/dl (13.5-17.5); LYMPH # 1.2 10^3/uL (1.5-4.5); LYMPH % 10.5 % (24.0-44.0); MEAN CORPUSCULAR HGB CONC 28.3 g/dl (32.0-36.5); MEAN CORPUSCULAR VOLUME 98.7 fl (80.0-96.0); MONO # 1.3 10^3/uL (0.0-0.8); MONO % 11.1 % (0.0-5.0); NEUTROPHILS # 8.4 10^3/uL (1.8-7.7); NEUTROPHILS % 72.1 % (36.0-66.0); PLATELET COUNT, AUTOMATED 360 10^3/uL (150-450); RED BLOOD COUNT 4.47 10^6/uL (4.30-6.10); RED CELL DISTRIBUTION WIDTH 16.1 % (11.5-14.5); WHITE BLOOD COUNT 11.7 10^3/uL (4.0-10.0)
[2017-12-30] MEDS: IPRATROPIUM 0.02% SOLN 0.5MG/2.5 ML NEB INH (01:57)
[2017-12-30 01:59] LABS: ABG BASE EXCESS -1.6 (-2.0-2.0); ABG HCO3 27.4 MEQ/L (22.0-26.0); ABG O2 SATURATION 99.5 % (95.0-99.0); ABG PARTIAL PRESSURE O2 259.1 mmHg (75.0-100.0); ABG STANDARD HCO3 23.1 MEQ/L (22.0-26.0); ABG TOTAL CO2 29.5 MEQ/L (23.0-31.0)
[2017-12-30 02:03] LABS: ABG PARTIAL PRESSURE CO2 68.4 mmHg (35.0-45.0); ABG pH (ARTERIAL) 7.221 UNITS (7.350-7.450)
[2017-12-30] MEDS: NITROGLYCERIN 2% OINT 1 GM *U/D* PKT TOP (02:05)
[2017-12-30 02:11] LABS: ANION GAP 7 MEQ/L (8-16); BLOOD UREA NITROGEN 40 MG/DL (7-18); CALCIUM LEVEL 8.5 MG/DL (8.8-10.2); CARBON DIOXIDE LEVEL 29 MEQ/L (21-32); CHLORIDE LEVEL 97 MEQ/L (98-107); CPK CREATINE PHOSPHOKINASE 48 U/L (39-308); CREATININE FOR GFR 4.92 MG/DL (0.70-1.30); GLOMERULAR FILTRATION RATE 12.7 (>49); GLUCOSE, FASTING 135 MG/DL (70-100); MB/CK RELATIVE INDEX 12.08 (< OR =4); NT-PRO BNP 12650 PG/ML (<125); POTASSIUM SERUM 7.6 MEQ/L (3.5-5.1); SODIUM LEVEL 133 MEQ/L (136-145); TROPONIN I < 0.02 NG/ML (< 0.10)
[2017-12-30] MEDS: SOD POLYSTYRENE SULFONATE SUSP 15 GM/60 ML UD PO (02:29)
[2017-12-30 02:30] LABS: LACTIC ACID SEPSIS PROTOCOL 2.4 MMOL/L (0.4-2.0)
[2017-12-30] MEDS ORDERED: BISACODYL 5 MG TAB PO (04:15)
[2017-12-30] MEDS: CALCIUM GLUCONATE 1,000 MG in D5W MINI-BAG PLUS 100 ML IV (05:46)
[2017-12-30 06:11] LABS: ANION GAP 7 MEQ/L (8-16); BLOOD UREA NITROGEN 42 MG/DL (7-18); CALCIUM LEVEL 8.9 MG/DL (8.8-10.2); CARBON DIOXIDE LEVEL 28 MEQ/L (21-32); CHLORIDE LEVEL 97 MEQ/L (98-107); CREATININE FOR GFR 5.04 MG/DL (0.70-1.30); GLOMERULAR FILTRATION RATE 12.3 (>49); GLUCOSE, FASTING 141 MG/DL (70-100); POTASSIUM SERUM 7.5 MEQ/L (3.5-5.1); SODIUM LEVEL 132 MEQ/L (136-145)
[2017-12-30] MEDS ORDERED: DEXTROSE 50% 50 ML VIAL IV (06:15)
[2017-12-30] MEDS: HumuLIN R (REGULAR) INSULIN (NovoLIN R) **100U/ML** PER UNIT IV (06:27)
[2017-12-30] MEDS: DEXTROSE 50% 50 ML SYRINGE IV (06:28)
[2017-12-30 07:39] LABS: BEDSIDE GLUCOSE 164 MG/DL (80-115)
[2017-12-30] MEDS: MIDODRINE 5 MG TAB PO ×3 (09:19→16:23)
[2017-12-30] MEDS: PANTOPRAZOLE 40MG TAB (PROTONIX) PO (14:18)
[2017-12-30] MEDS: FERROUS GLUCONATE 324 MG TAB PO (14:18)
[2017-12-30] MEDS: DOCUSATE SODIUM 100 MG CAP PO (14:18)
[2017-12-30] MEDS: GABAPENTIN 100 MG CAP PO ×2 (14:19→20:30)
[2017-12-30] MEDS: FOLIC ACID 1 MG TAB PO (14:19)
[2017-12-30 15:14] LABS: ABG BASE EXCESS 0.6 (-2.0-2.0); ABG HCO3 24.7 MEQ/L (22.0-26.0); ABG O2 SATURATION 97.9 % (95.0-99.0); ABG PARTIAL PRESSURE CO2 37.7 mmHg (35.0-45.0); ABG TOTAL CO2 25.8 MEQ/L (23.0-31.0); ABG pH (ARTERIAL) 7.434 UNITS (7.350-7.450)
[2017-12-30] MEDS: LIDOCAINE 1% SDV 5 ML VIAL SQ (16:21)
[2017-12-30] MEDS: HEPARIN 1,000 UNITS/ML 10ML VIAL (FOR RADIOLOGY& DIALYSIS ONLY) IV (16:21)
[2017-12-30] MEDS: SERTRALINE HCL 25 MG TABLET PO (20:31)
[2017-12-30] MEDS: ATORVASTATIN 20 MG TAB PO (20:31)
[2017-12-31 05:02] LABS: HEMATOCRIT 36.2 % (42.0-52.0); HEMOGLOBIN 10.7 g/dl (13.5-17.5); MEAN CORPUSCULAR HEMOGLOBIN 27.7 pg (27.0-33.0); MEAN CORPUSCULAR HGB CONC 29.6 g/dl (32.0-36.5); MEAN CORPUSCULAR VOLUME 93.8 fl (80.0-96.0); PLATELET COUNT, AUTOMATED 281 10^3/uL (150-450); RED BLOOD COUNT 3.86 10^6/uL (4.30-6.10); RED CELL DISTRIBUTION WIDTH 16.1 % (11.5-14.5); WHITE BLOOD COUNT 10.8 10^3/uL (4.0-10.0)
[2017-12-31 05:15] LABS: PROTHROMBIN TIME 15.3 SECONDS (12.1-14.4)
[2017-12-31 05:46] LABS: ANION GAP 8 MEQ/L (8-16); BLOOD UREA NITROGEN 33 MG/DL (7-18); CALCIUM LEVEL 8.5 MG/DL (8.8-10.2); CARBON DIOXIDE LEVEL 25 MEQ/L (21-32); CHLORIDE LEVEL 99 MEQ/L (98-107); CREATININE FOR GFR 3.89 MG/DL (0.70-1.30); GLOMERULAR FILTRATION RATE 16.6 (>49); GLUCOSE, FASTING 96 MG/DL (70-100); MAGNESIUM LEVEL 2.1 MG/DL (1.8-2.4); SODIUM LEVEL 132 MEQ/L (136-145)
[2017-12-31] MEDS: DOCUSATE SODIUM 100 MG CAP PO (08:47)
[2017-12-31] MEDS: FERROUS GLUCONATE 324 MG TAB PO (08:47)
[2017-12-31] MEDS: FOLIC ACID 1 MG TAB PO (08:47)
[2017-12-31] MEDS: MIDODRINE 5 MG TAB PO ×3 (08:47→18:19)
[2017-12-31] MEDS: GABAPENTIN 100 MG CAP PO ×2 (08:47→20:06)
[2017-12-31] MEDS: PANTOPRAZOLE 40MG TAB (PROTONIX) PO (08:47)
[2017-12-31] MEDS: ATORVASTATIN 20 MG TAB PO (20:06)
[2017-12-31] MEDS: SERTRALINE HCL 25 MG TABLET PO (20:06)
[2017-12-31] MEDS: ACETAMINOPHEN TAB 650MG DOSE (2X325MG) PO (22:48)
[2018-01-01 06:05] LABS: HEMATOCRIT 36.5 % (42.0-52.0); HEMOGLOBIN 10.7 g/dl (13.5-17.5); MEAN CORPUSCULAR HEMOGLOBIN 27.6 pg (27.0-33.0); MEAN CORPUSCULAR HGB CONC 29.3 g/dl (32.0-36.5); MEAN CORPUSCULAR VOLUME 94.1 fl (80.0-96.0); PLATELET COUNT, AUTOMATED 250 10^3/uL (150-450); RED BLOOD COUNT 3.88 10^6/uL (4.30-6.10); RED CELL DISTRIBUTION WIDTH 15.9 % (11.5-14.5); WHITE BLOOD COUNT 8.8 10^3/uL (4.0-10.0)
[2018-01-01 06:38] LABS: ANION GAP 9 MEQ/L (8-16); BLOOD UREA NITROGEN 43 MG/DL (7-18); CALCIUM LEVEL 8.1 MG/DL (8.8-10.2); CARBON DIOXIDE LEVEL 25 MEQ/L (21-32); CHLORIDE LEVEL 98 MEQ/L (98-107); CREATININE FOR GFR 4.94 MG/DL (0.70-1.30); GLOMERULAR FILTRATION RATE 12.6 (>49); GLUCOSE, FASTING 78 MG/DL (70-100); MAGNESIUM LEVEL 2.2 MG/DL (1.8-2.4); POTASSIUM SERUM 4.9 MEQ/L (3.5-5.1); SODIUM LEVEL 132 MEQ/L (136-145)
[2018-01-01] MEDS: PANTOPRAZOLE 40MG TAB (PROTONIX) PO (07:56)
[2018-01-01] MEDS: FOLIC ACID 1 MG TAB PO (07:56)
[2018-01-01] MEDS: MIDODRINE 5 MG TAB PO ×3 (07:56→16:10)
[2018-01-01] MEDS: FERROUS GLUCONATE 324 MG TAB PO (07:56)
[2018-01-01] MEDS: GABAPENTIN 100 MG CAP PO ×2 (07:56→20:53)
[2018-01-01] MEDS: DOCUSATE SODIUM 100 MG CAP PO (07:57)
[2018-01-01] MEDS: LIDOCAINE 1% SDV 5 ML VIAL SQ (11:15)
[2018-01-01] MEDS: HEPARIN 1,000 UNITS/ML 10ML VIAL (FOR RADIOLOGY& DIALYSIS ONLY) IV (11:15)
[2018-01-01] MEDS: ATORVASTATIN 20 MG TAB PO (20:53)
[2018-01-01] MEDS: SERTRALINE HCL 25 MG TABLET PO (20:53)
[2018-01-02 06:12] LABS: HEMATOCRIT 39.7 % (42.0-52.0); HEMOGLOBIN 11.6 g/dl (13.5-17.5); MEAN CORPUSCULAR HEMOGLOBIN 27.4 pg (27.0-33.0); MEAN CORPUSCULAR HGB CONC 29.2 g/dl (32.0-36.5); MEAN CORPUSCULAR VOLUME 93.9 fl (80.0-96.0); PLATELET COUNT, AUTOMATED 255 10^3/uL (150-450); RED BLOOD COUNT 4.23 10^6/uL (4.30-6.10); RED CELL DISTRIBUTION WIDTH 15.7 % (11.5-14.5); WHITE BLOOD COUNT 8.1 10^3/uL (4.0-10.0)
[2018-01-02 06:41] LABS: ANION GAP 9 MEQ/L (8-16); BLOOD UREA NITROGEN 24 MG/DL (7-18); CARBON DIOXIDE LEVEL 29 MEQ/L (21-32); CHLORIDE LEVEL 96 MEQ/L (98-107); CREATININE FOR GFR 3.78 MG/DL (0.70-1.30); GLOMERULAR FILTRATION RATE 17.2 (>49); GLUCOSE, FASTING 79 MG/DL (70-100); POTASSIUM SERUM 4.2 MEQ/L (3.5-5.1); SODIUM LEVEL 134 MEQ/L (136-145)
[2018-01-02] MEDS: GABAPENTIN 100 MG CAP PO ×2 (08:28→20:27)
[2018-01-02] MEDS: DOCUSATE SODIUM 100 MG CAP PO (08:28)
[2018-01-02] MEDS: FERROUS GLUCONATE 324 MG TAB PO (08:28)
[2018-01-02] MEDS: FOLIC ACID 1 MG TAB PO (08:28)
[2018-01-02] MEDS: MIDODRINE 5 MG TAB PO ×3 (08:28→16:24)
[2018-01-02] MEDS: PANTOPRAZOLE 40MG TAB (PROTONIX) PO (08:28)
[2018-01-02] MEDS: SERTRALINE HCL 25 MG TABLET PO (20:27)
[2018-01-02] MEDS: ATORVASTATIN 20 MG TAB PO (20:27)
[2018-01-03] MEDS: PANTOPRAZOLE 40MG TAB (PROTONIX) PO (06:34)
[2018-01-03] MEDS: GABAPENTIN 100 MG CAP PO ×2 (06:35→20:06)
[2018-01-03] MEDS: FOLIC ACID 1 MG TAB PO (06:35)
[2018-01-03] MEDS: MIDODRINE 5 MG TAB PO ×3 (06:35→15:18)
[2018-01-03] MEDS: DOCUSATE SODIUM 100 MG CAP PO (06:35)
[2018-01-03] MEDS: FERROUS GLUCONATE 324 MG TAB PO (06:35)
[2018-01-03 06:41] LABS: HEMATOCRIT 40.3 % (42.0-52.0); HEMOGLOBIN 11.9 g/dl (13.5-17.5); MEAN CORPUSCULAR HEMOGLOBIN 27.7 pg (27.0-33.0); MEAN CORPUSCULAR HGB CONC 29.5 g/dl (32.0-36.5); MEAN CORPUSCULAR VOLUME 93.9 fl (80.0-96.0); PLATELET COUNT, AUTOMATED 271 10^3/uL (150-450); RED BLOOD COUNT 4.29 10^6/uL (4.30-6.10); RED CELL DISTRIBUTION WIDTH 15.7 % (11.5-14.5); WHITE BLOOD COUNT 8.7 10^3/uL (4.0-10.0)
[2018-01-03 07:09] LABS: ANION GAP 8 MEQ/L (8-16); BLOOD UREA NITROGEN 35 MG/DL (7-18); CALCIUM LEVEL 8.3 MG/DL (8.8-10.2); CARBON DIOXIDE LEVEL 29 MEQ/L (21-32); CHLORIDE LEVEL 94 MEQ/L (98-107); CREATININE FOR GFR 5.14 MG/DL (0.70-1.30); GLUCOSE, FASTING 90 MG/DL (70-100); POTASSIUM SERUM 4.6 MEQ/L (3.5-5.1); SODIUM LEVEL 131 MEQ/L (136-145)
[2018-01-03] MEDS: HEPARIN 1,000 UNITS/ML 10ML VIAL (FOR RADIOLOGY& DIALYSIS ONLY) IV (10:45)
[2018-01-03] MEDS: LIDOCAINE 1% SDV 5 ML VIAL SQ (10:45)
[2018-01-03] MEDS: SERTRALINE HCL 25 MG TABLET PO (20:06)
[2018-01-03] MEDS: ATORVASTATIN 20 MG TAB PO (20:06)
[2018-01-04] MEDS: DOCUSATE SODIUM 100 MG CAP PO (08:22)
[2018-01-04] MEDS: MIDODRINE 5 MG TAB PO ×3 (08:22→16:25)
[2018-01-04] MEDS: FOLIC ACID 1 MG TAB PO (08:22)
[2018-01-04] MEDS: GABAPENTIN 100 MG CAP PO ×2 (08:22→20:27)
[2018-01-04] MEDS: PANTOPRAZOLE 40MG TAB (PROTONIX) PO (08:22)
[2018-01-04] MEDS: FERROUS GLUCONATE 324 MG TAB PO (08:22)
[2018-01-04 08:28] LABS: HEMATOCRIT 37.4 % (42.0-52.0); MEAN CORPUSCULAR HEMOGLOBIN 27.8 pg (27.0-33.0); MEAN CORPUSCULAR HGB CONC 29.4 g/dl (32.0-36.5); MEAN CORPUSCULAR VOLUME 94.7 fl (80.0-96.0); PLATELET COUNT, AUTOMATED 225 10^3/uL (150-450); RED BLOOD COUNT 3.95 10^6/uL (4.30-6.10); RED CELL DISTRIBUTION WIDTH 15.9 % (11.5-14.5); WHITE BLOOD COUNT 7.6 10^3/uL (4.0-10.0)
[2018-01-04 08:55] LABS: ANION GAP 7 MEQ/L (8-16); BLOOD UREA NITROGEN 27 MG/DL (7-18); CALCIUM LEVEL 8.3 MG/DL (8.8-10.2); CARBON DIOXIDE LEVEL 31 MEQ/L (21-32); CHLORIDE LEVEL 97 MEQ/L (98-107); CREATININE FOR GFR 3.81 MG/DL (0.70-1.30); GLUCOSE, FASTING 139 MG/DL (70-100); MAGNESIUM LEVEL 2.1 MG/DL (1.8-2.4); POTASSIUM SERUM 3.8 MEQ/L (3.5-5.1); SODIUM LEVEL 135 MEQ/L (136-145)
[2018-01-04] MEDS: SERTRALINE HCL 25 MG TABLET PO (20:27)
[2018-01-04] MEDS: ATORVASTATIN 20 MG TAB PO (20:27)
[2018-01-05 07:59] LABS: HEMATOCRIT 39.1 % (42.0-52.0); HEMOGLOBIN 11.6 g/dl (13.5-17.5); MEAN CORPUSCULAR HEMOGLOBIN 27.6 pg (27.0-33.0); MEAN CORPUSCULAR HGB CONC 29.7 g/dl (32.0-36.5); MEAN CORPUSCULAR VOLUME 93.1 fl (80.0-96.0); PLATELET COUNT, AUTOMATED 239 10^3/uL (150-450); RED CELL DISTRIBUTION WIDTH 15.9 % (11.5-14.5); WHITE BLOOD COUNT 7.9 10^3/uL (4.0-10.0)
[2018-01-05] MEDS: PANTOPRAZOLE 40MG TAB (PROTONIX) PO (08:01)
[2018-01-05] MEDS: MIDODRINE 5 MG TAB PO ×3 (08:01→15:31)
[2018-01-05] MEDS: GABAPENTIN 100 MG CAP PO ×2 (08:01→21:03)
[2018-01-05] MEDS: FERROUS GLUCONATE 324 MG TAB PO (08:01)
[2018-01-05] MEDS: DOCUSATE SODIUM 100 MG CAP PO (08:01)
[2018-01-05] MEDS: FOLIC ACID 1 MG TAB PO (08:02)
[2018-01-05 08:27] LABS: ANION GAP 8 MEQ/L (8-16); BLOOD UREA NITROGEN 37 MG/DL (7-18); CALCIUM LEVEL 8.7 MG/DL (8.8-10.2); CARBON DIOXIDE LEVEL 28 MEQ/L (21-32); CHLORIDE LEVEL 95 MEQ/L (98-107); GLOMERULAR FILTRATION RATE 12.7 (>49); GLUCOSE, FASTING 82 MG/DL (70-100); MAGNESIUM LEVEL 2.2 MG/DL (1.8-2.4); POTASSIUM SERUM 4.5 MEQ/L (3.5-5.1); SODIUM LEVEL 131 MEQ/L (136-145)
[2018-01-05] MEDS: ATORVASTATIN 20 MG TAB PO (21:03)
[2018-01-05] MEDS: SERTRALINE HCL 25 MG TABLET PO (21:04)
[2018-01-06] MEDS: DOCUSATE SODIUM 100 MG CAP PO (06:25)
[2018-01-06] MEDS: FERROUS GLUCONATE 324 MG TAB PO (06:25)
[2018-01-06] MEDS: FOLIC ACID 1 MG TAB PO (06:25)
[2018-01-06] MEDS: MIDODRINE 5 MG TAB PO ×3 (06:25→15:48)
[2018-01-06] MEDS: PANTOPRAZOLE 40MG TAB (PROTONIX) PO (06:25)
[2018-01-06] MEDS: GABAPENTIN 100 MG CAP PO ×2 (06:26→20:38)
[2018-01-06 09:32] LABS: HEMATOCRIT 38.3 % (42.0-52.0); HEMOGLOBIN 11.2 g/dl (13.5-17.5); MEAN CORPUSCULAR HEMOGLOBIN 27.5 pg (27.0-33.0); MEAN CORPUSCULAR HGB CONC 29.2 g/dl (32.0-36.5); MEAN CORPUSCULAR VOLUME 93.9 fl (80.0-96.0); PLATELET COUNT, AUTOMATED 262 10^3/uL (150-450); RED BLOOD COUNT 4.08 10^6/uL (4.30-6.10); RED CELL DISTRIBUTION WIDTH 15.8 % (11.5-14.5); WHITE BLOOD COUNT 7.7 10^3/uL (4.0-10.0)
[2018-01-06 09:48] LABS: ANION GAP 9 MEQ/L (8-16); BLOOD UREA NITROGEN 46 MG/DL (7-18); CALCIUM LEVEL 8.2 MG/DL (8.8-10.2); CARBON DIOXIDE LEVEL 28 MEQ/L (21-32); CHLORIDE LEVEL 92 MEQ/L (98-107); CREATININE FOR GFR 5.96 MG/DL (0.70-1.30); GLOMERULAR FILTRATION RATE 10.1 (>49); GLUCOSE, FASTING 164 MG/DL (70-100); MAGNESIUM LEVEL 2.1 MG/DL (1.8-2.4); POTASSIUM SERUM 4.8 MEQ/L (3.5-5.1); SODIUM LEVEL 129 MEQ/L (136-145)
[2018-01-06] MEDS: HEPARIN 1,000 UNITS/ML 10ML VIAL (FOR RADIOLOGY& DIALYSIS ONLY) IV (10:15)
[2018-01-06] MEDS: LIDOCAINE 1% SDV 5 ML VIAL SQ (10:15)
[2018-01-06] MEDS: ATORVASTATIN 20 MG TAB PO (20:38)
[2018-01-06] MEDS: SERTRALINE HCL 25 MG TABLET PO (20:38)
[2018-01-07] MEDS: GABAPENTIN 100 MG CAP PO ×2 (08:13→20:01)
[2018-01-07] MEDS: PANTOPRAZOLE 40MG TAB (PROTONIX) PO (08:13)
[2018-01-07] MEDS: DOCUSATE SODIUM 100 MG CAP PO (08:13)
[2018-01-07] MEDS: FERROUS GLUCONATE 324 MG TAB PO (08:13)
[2018-01-07] MEDS: FOLIC ACID 1 MG TAB PO (08:13)
[2018-01-07] MEDS: MIDODRINE 5 MG TAB PO ×3 (08:13→15:34)
[2018-01-07] MEDS: HEPARIN 1,000 UNITS/ML 10ML VIAL (FOR RADIOLOGY& DIALYSIS ONLY) IV (12:15)
[2018-01-07] MEDS: LIDOCAINE 1% SDV 5 ML VIAL SQ (12:15)
[2018-01-07 12:57] LABS: ANION GAP 12 MEQ/L (8-16); BLOOD UREA NITROGEN 31 MG/DL (7-18); CALCIUM LEVEL 7.9 MG/DL (8.8-10.2); CARBON DIOXIDE LEVEL 23 MEQ/L (21-32); CHLORIDE LEVEL 98 MEQ/L (98-107); CREATININE FOR GFR 4.66 MG/DL (0.70-1.30); GLOMERULAR FILTRATION RATE 13.5 (>49); GLUCOSE, FASTING 162 MG/DL (70-100); POTASSIUM SERUM 4.7 MEQ/L (3.5-5.1); SODIUM LEVEL 133 MEQ/L (136-145)
[2018-01-07] MEDS: SERTRALINE HCL 25 MG TABLET PO (20:01)
[2018-01-07] MEDS: ATORVASTATIN 20 MG TAB PO (20:01)
[2018-01-08] MEDS: GABAPENTIN 100 MG CAP PO ×2 (06:18→20:43)
[2018-01-08] MEDS: FERROUS GLUCONATE 324 MG TAB PO (06:18)
[2018-01-08] MEDS: PANTOPRAZOLE 40MG TAB (PROTONIX) PO (06:18)
[2018-01-08] MEDS: DOCUSATE SODIUM 100 MG CAP PO (06:19)
[2018-01-08] MEDS: FOLIC ACID 1 MG TAB PO (06:19)
[2018-01-08] MEDS: MIDODRINE 5 MG TAB PO ×3 (08:41→17:21)
[2018-01-08] MEDS: ACETAMINOPHEN TAB 650MG DOSE (2X325MG) PO (09:49)
[2018-01-08] MEDS: LIDOCAINE 1% SDV 5 ML VIAL SQ (13:40)
[2018-01-08] MEDS: HEPARIN 1,000 UNITS/ML 10ML VIAL (FOR RADIOLOGY& DIALYSIS ONLY) IV (13:40)
[2018-01-08] MEDS: SERTRALINE HCL 25 MG TABLET PO (20:43)
[2018-01-08] MEDS: ATORVASTATIN 20 MG TAB PO (20:43)
[2018-01-09] MEDS: PANTOPRAZOLE 40MG TAB (PROTONIX) PO (09:26)
[2018-01-09] MEDS: FERROUS GLUCONATE 324 MG TAB PO (09:26)
[2018-01-09] MEDS: FOLIC ACID 1 MG TAB PO (09:26)
[2018-01-09] MEDS: MIDODRINE 5 MG TAB PO ×2 (09:27→12:55)
[2018-01-09] MEDS: DOCUSATE SODIUM 100 MG CAP PO (09:28)
[2018-01-09] MEDS: GABAPENTIN 100 MG CAP PO (09:28)
== END 2018-01-09 13:35 | disposition home or self-care (01) | DRG 133 ==
LOC: M MSPAV 01-02 01:30 → M PCU 12-31 22:01 → M ED 00:34 → M ED INP 04:15 → M ICU 08:37
PROC: 5A1D70Z Performance of Urinary Filtration, Intermittent, Less than 6 Hours Per Day (ICD-10-PCS; principal; 2017-12-30)
PROC: 0W9G3ZZ Drainage of Peritoneal Cavity, Percutaneous Approach (ICD-10-PCS; 2017-12-31)
DX: J96.02 Acute respiratory failure with hypercapnia (principal); I50.33 Acute on chronic diastolic (congestive) heart failure; E11.22 Type 2 diabetes mellitus with diabetic chronic kidney disease; N18.6 End stage renal disease; N25.81 Secondary hyperparathyroidism of renal origin; E11.40 Type 2 diabetes mellitus with diabetic neuropathy, unspecified; I27.29 Other secondary pulmonary hypertension; K74.60 Unspecified cirrhosis of liver; E87.5 Hyperkalemia; E87.1 Hypo-osmolality and hyponatremia; I50.813 Acute on chronic right heart failure; R53.81 Other malaise; I25.10 Atherosclerotic heart disease of native coronary artery without angina pectoris; E78.5 Hyperlipidemia, unspecified; D63.8 Anemia in other chronic diseases classified elsewhere; Z95.1 Presence of aortocoronary bypass graft; Z99.2 Dependence on renal dialysis; Z95.828 Presence of other vascular implants and grafts; Z79.899 Other long term (current) drug therapy; I25.2 Old myocardial infarction; Z91.19 Patient's noncompliance with other medical treatment and regimen

== ENCOUNTER → 2018-01-16 | Outpatient (CLI) | payer BC, MEDICARE | LOC: M RADPRO 13:33 | DX: K74.60 Unspecified cirrhosis of liver (principal); R18.8 Other ascites; Z99.2 Dependence on renal dialysis; Z79.899 Other long term (current) drug therapy | CPT/HCPCS: 49083 ==

== ENCOUNTER → 2018-01-30 | Outpatient (CLI) | payer BC, MEDICARE | LOC: M RADPRO 13:34 | DX: R18.8 Other ascites (principal); K74.60 Unspecified cirrhosis of liver; Z99.2 Dependence on renal dialysis | CPT/HCPCS: 49083 ==

== ENCOUNTER → 2018-02-13 | Outpatient (CLI) | payer BC, MEDICARE | LOC: M RADPRO 13:45 | DX: R18.8 Other ascites (principal); K74.60 Unspecified cirrhosis of liver; Z99.2 Dependence on renal dialysis; Z79.899 Other long term (current) drug therapy | CPT/HCPCS: 49083 ==

== ENCOUNTER → 2018-02-20 | Outpatient (CLI) | payer BC, MEDICARE ==
[~2018-02-20] MED LIST changes: +ASCO25TA PO; +ASCO500T PO; +BISA10SU4 PR; +COLA100C5 PO; +ENEMENE6 PR; +FERR324T2 PO; +FERR325T16 PO; +FERR325T3 PO; +FERR5MLUD PO; +FOLI1TAB5 PO; +GABA-1171 PO; +GABA-843 PO; -HEPARIN 1,000 UNITS/ML 10ML VIAL (FOR RADIOLOGY& DIALYSIS ONLY) As Ordered; +INSUH10VL SC; -ISOVUE-300 61% 50ML VIAL (Q9967) As Ordered; +LIPI20TA PO; +LOPR1TAB6 PO; +META48.54 PO; +METO1TAB87 PO; -MIDAZOLAM INJ 2 MG/2 ML VIAL (J2250) As Ordered; +MIDO10TA PO; +MIDO2.5T PO; +MILK12002 PO; +MIRA33504 PO; +NEPR1LIQ2 PO; +PACE200T PO; +PHEN2SUP PR; +PROT1TAB2 PO; +PROTPAK PO; +RENV2TAB PO; +TYLE325T5 PO; +VELT1POW PO; +VITA1CAP25 PO; +VITMTA PO; +ZOLO25TA PO; -fentaNYL 100 MCG/2 ML INJECTION (J3010) As Ordered
--- NOTE | 2018-02-20 16:32 | REP ---
Ultrasound-guided paracentesis The procedure was performed under the direct supervision of Dr. Marcus. The risks and benefits of the procedure were explained to the patient and informed consent was obtained. The largest pocket of fluid was localized in the right flank using ultrasound guidance. The skin was prepped and draped in a sterile fashion. 1% lidocaine was used as a local anesthetic. An 8-Malay multi side-hole catheter was inserted using trocar technique. 8100 ml of yellow fluid was withdrawn and discarded. The patient tolerated the procedure well and there were no immediate complications. After the appropriate amount of monitored convalescence the patient was discharged from the department. Reviewed by RIVERA Gaona 02/20/2018 04:10 P Electronically Signed by Jose C Marcus MD 02/20/2018 04:24 P
== END ==
LOC: M RADPRO 10:28
PROVIDERS: ATTEND Internal Medicine Nephrology
DX: R18.8 Other ascites (principal); Z79.899 Other long term (current) drug therapy

== ENCOUNTER → 2018-02-27 | Outpatient (CLI) | payer BC, MEDICARE ==
[~2018-02-27] MED LIST changes: +FOLI1TAB11 PO; -FOLI1TAB5 PO; +MILK120011 PO; -MILK12002 PO
--- NOTE | 2018-02-27 16:19 | REP ---
ULTRASOUND GUIDED ABDOMINAL PARACENTESIS: Ultrasound guided abdominal paracentesis was requested. Informed consent was obtained. Under sterile conditions and after satisfactory administration of local anesthesia, using ultrasound guidance, access to ascites fluid in the left flank is obtained using an 8-English paracentesis catheter. The catheter was attached to wall suction. Approximately 7425 mL of cloudy yellow fluid was aspirated without difficulty. The catheter was removed and hemostasis was obtained with no immediate complication. Patient was discharged in stable condition. Electronically Signed by Hector De La Rosa MD 02/27/2018 04:36 P
== END ==
LOC: M RADPRO 13:42
PROVIDERS: ATTEND Internal Medicine Nephrology
DX: K74.60 Unspecified cirrhosis of liver (principal); R18.8 Other ascites; Z99.2 Dependence on renal dialysis

== ENCOUNTER → 2018-03-20 | Outpatient (CLI) | payer BC, MEDICARE ==
--- NOTE | 2018-03-20 18:08 | REP ---
Ultrasound-guided paracentesis The procedure was performed under the direct supervision of Dr. Marcus. The risks and benefits of the procedure were explained to the patient and informed consent was obtained. The largest pocket of fluid was localized in the right lower quadrant using ultrasound guidance. The skin was prepped and draped in a sterile fashion. 1% lidocaine was used as a local anesthetic. An 8-Italian multi side-hole catheter was inserted using trocar technique. 4750 ml of yellow fluid was withdrawn and discarded. The patient tolerated the procedure well and there were no immediate complications. After the appropriate amount of monitored convalescence the patient was discharged from the department. Reviewed by RIVERA Gaona 03/20/2018 04:11 P Electronically Signed by Jose C Marcus MD 03/20/2018 05:59 P
== END ==
LOC: M RADPRO 13:38
PROVIDERS: ATTEND Internal Medicine Nephrology
DX: R18.8 Other ascites (principal); K74.60 Unspecified cirrhosis of liver; Z99.2 Dependence on renal dialysis

== ENCOUNTER → 2018-03-27 | Outpatient (CLI) | payer BC, MEDICARE ==
--- NOTE | 2018-03-28 16:32 | REP ---
Ultrasound-guided paracentesis The procedure was performed under the direct supervision of Dr. Marcus. The risks and benefits of the procedure were explained to the patient and informed consent was obtained. The largest pocket of fluid was localized in the left flank using ultrasound guidance. The skin was prepped and draped in a sterile fashion. 1% lidocaine was used as a local anesthetic. An 8-South African multi side-hole catheter was inserted using trocar technique. 4,300 ml of shaista colored fluid was withdrawn and discarded. The patient tolerated the procedure well and there were no immediate complications. After the appropriate amount of monitored convalescence the patient was discharged from the department. Reviewed by RIVERA Gaona 03/28/2018 10:50 A Electronically Signed by Jose C Marcus MD 03/28/2018 04:23 P
== END ==
LOC: M RADPRO 14:01
PROVIDERS: ATTEND Internal Medicine Nephrology
DX: R18.8 Other ascites (principal); K74.60 Unspecified cirrhosis of liver; Z99.2 Dependence on renal dialysis; Z79.899 Other long term (current) drug therapy

== ENCOUNTER → 2018-04-03 | Outpatient (CLI) | payer BC, MEDICARE ==
[~2018-04-03] MED LIST changes: +LIDOCAINE 1% MDV 20ML VIAL As Ordered ONE
--- NOTE | 2018-04-04 11:18 | REP ---
Ultrasound-guided paracentesis The procedure was performed under the direct supervision of Dr. De La Rosa. The risks and benefits of the procedure were explained to the patient and informed consent was obtained. The largest pocket of fluid was localized in the right flank using ultrasound guidance. The skin was prepped and draped in a sterile fashion. 1% lidocaine was used as a local anesthetic. An 8-Bulgarian multi side-hole catheter was inserted using trocar technique. 5,600 ml of cloudy yellow fluid was withdrawn and discarded. The patient tolerated the procedure well and there were no immediate complications. After the appropriate amount of monitored convalescence the patient was discharged from the department. Reviewed by RIVERA Gaona 04/04/2018 10:59 A Electronically Signed by Hector De La Rosa MD 04/04/2018 11:09 A
== END ==
LOC: M RADPRO 13:37
PROVIDERS: ATTEND Internal Medicine Nephrology
DX: R18.8 Other ascites (principal); K74.60 Unspecified cirrhosis of liver; Z99.2 Dependence on renal dialysis

== ENCOUNTER → 2018-04-10 | Outpatient (CLI) | payer BC, MEDICARE ==
[~2018-04-10] MED LIST changes: -LIDOCAINE 1% MDV 20ML VIAL As Ordered ONE
--- NOTE | 2018-04-10 17:53 | REP ---
Ultrasound-guided paracentesis The procedure was performed under the direct supervision of Dr. Marcus. The risks and benefits of the procedure were explained to the patient and informed consent was obtained. The largest pocket of fluid was localized in the left flank using ultrasound guidance. The skin was prepped and draped in a sterile fashion. 1% lidocaine was used as a local anesthetic. An 8-Somali multi side-hole catheter was inserted using trocar technique. 4,600 ml of cloudy yellow fluid was withdrawn and discarded. The patient tolerated the procedure well and there were no immediate complications. After the appropriate amount of monitored convalescence the patient was discharged from the department. Reviewed by RIVERA Gaona 04/10/2018 02:39 P Electronically Signed by Jose C Marcus MD 04/10/2018 05:44 P
== END ==
LOC: M RADPRO 10:16
PROVIDERS: ATTEND Internal Medicine Nephrology
DX: R18.8 Other ascites (principal); K74.60 Unspecified cirrhosis of liver; Z99.2 Dependence on renal dialysis

== ENCOUNTER → 2018-04-10 | Outpatient (CLI) | payer BC, MEDICARE ==
[~2018-04-10] MED LIST changes: +ISOVUE-300 61% 50ML VIAL (Q9967) As Ordered ONE; +LIDOCAINE 2% MDV 20 ML VIAL As Ordered ONE; +MIDAZOLAM INJ 2 MG/2 ML VIAL (J2250) As Ordered ONE; +fentaNYL 100 MCG/2 ML INJECTION (J3010) As Ordered ONE
--- NOTE | 2018-04-28 20:33 | ROOPDOC ---
[facility] Report Of Operation Report of Operation DATE OF PROCEDURE: 04/10/2018 PREOPERATIVE DIAGNOSIS: End-stage renal disease. Left hand pain and stiffness. POSTOPERATIVE DIAGNOSIS: End-stage renal disease. Left hand pain and stiffness. PROCEDURE: Left brachiocephalic arteriovenous fistulogram. Retrograde left brachial artery angiogram. SURGEON: Dr. Juanita Polanco MD ROOF TRUSS MACHINE TENDER: Stephanie Forbes INDICATION: Patient is a 67-year-old male with end-stage renal disease who dial yzes through a left brachiocephalic arteriovenous fistula. Patient has had pain and stiffness in his left hand especially during hemodialysis.. Patient has not had difficulty with excessive bleeding on decannulization.. Patient will undergo a left brachiocephalic arteriovenous fistulogram with possible angioplasty, atherectomy, landing and/or stenting. The procedure was described and explained to the patient in detail including drawing of pictures describing the procedure and pertinent anatomy pertaining to the procedure. Risks, benefits and alternative treatment options were discussed with the patient. Benefits included but were not limited to improved functioning of the arterial venous fistula and maintained patency with resolution of the symptoms in the left hand.. Alternative treatment options included but were not limited to no intervention. Risks included but were not limited to infection, bleeding, loss of arteriovenous access, steal syndrome, possible need for open surgical intervention, anesthetic complications, allergic reaction and/or complication from the prepping and draping materials, scarring of the skin, hematoma formation, bruising, possible need for transfusion of blood products, cerebrovascular accident, myocardial infarction, pulmonary embolus, deep venous thrombosis, loss of limb, loss of life, poor satisfaction and poor outcome. Risks of not performing the procedure included but were not limited to loss of arteriovenous autogenous access and possible need for placement of a tunneled central venous catheter for hemodialysis access as well as continued left hand symptoms. Patient's questions were answered. Patient voices understanding of these risks, benefits and alternative treatment options. Patient voices acceptance of the risks associated with the procedure and consents to proceed with a fistulogram with possible angioplasty, atherectomy, banding and/or stenting. There were no promises or guarantees made to the patient regarding the procedure and/or outcome of the procedure. ANESTHESIA: Local with 2 mL of 2% lidocaine SEDATION TIME: [No sedation was given]. ESTIMATED BLOOD LOSS: 5 mL. IV FLUIDS: 100 mL. HEPARIN: None PROTAMINE: None FLUORO TIME: 0.1 minutes CONTRAST: 2 mL. of isovue 300 COMPLICATIONS: None DRAINS: None. SPECIMENS: None. IMPLANTS: None PROCEDURE: Patient was taken to the angiography suite, placed supine on the angiography room table and then prepped and draped in a standard surgical fashion. A procedural time-out was conducted by myself and the team members involved in the procedure confirming the correct patient, procedure and laterality. The left brachiocephalic arteriovenous fistula and then cannulated with a micro-puncture needle. A micropuncture wire was advanced through the micropuncture needle which was up-sized to a micropuncture sheath.. A fistulogram and retrograde left brachial artery angiogram were performed showing the fistula be widely patent with 2 large collateral veins originating off the cephalic vein in the antecubital fossa region and coursing into the deeper venous system. The micropuncture sheath was removed and manual compression applied at the puncture site for hemostasis. Dressings were then applied. Patient tolerated the procedure well. There were no complications. All instrument, sponge and needle counts were correct at the end of the case. Dr. Polanco was present for and directed the entire case. Patient was transferred to the recovery area and subsequently discharged home in stable condition. RADIOLOGIC SUPERVISION AND INTERPRETATION: The fistulogram showed the cephalic vein to be widely patent to the central venous system with no central venous stenosis or occlusion noted. The retrograde brachial artery angiogram showed the remainder of the cephalic vein from the cannulation site to the brachial artery to be widely patent. There was good flow in the brachial artery proximal and distal to the arteriovenous anastomosis. There was no stenosis at the arteriovenous anastomosis. There were 2 large collateral branch is originating off the cephalic vein in the antecubital fossa region which coursed into the deeper venous system. CONCLUSION: The fistula was widely patent with 2 large collateral branch is coursing from the cephalic vein into the deeper venous system. The left hand pain and stiffness is originating from steal syndrome and the patient will be scheduled to undergo ligation of the 2 large collateral branch is with possible banding of the left autogenous brachiocephalic arteriovenous fistula. Tulio Polanco MD Apr 28, 2018 20:33
== END | disposition home or self-care (01) ==
LOC: M IRPRO 09:18
PROVIDERS: ATTEND Surgery Vascular Surgery
DX: T82.898A Other specified complication of vascular prosthetic devices, implants and grafts, initial encounter (principal); M79.642 Pain in left hand; N18.6 End stage renal disease; Z99.2 Dependence on renal dialysis
CPT/HCPCS: 36901; C1894; Q9967

== ENCOUNTER → 2018-04-17 | Outpatient (CLI) | payer BC, MEDICARE ==
[~2018-04-17] MED LIST changes: -ISOVUE-300 61% 50ML VIAL (Q9967) As Ordered ONE; -LIDOCAINE 2% MDV 20 ML VIAL As Ordered ONE; -MIDAZOLAM INJ 2 MG/2 ML VIAL (J2250) As Ordered ONE; -fentaNYL 100 MCG/2 ML INJECTION (J3010) As Ordered ONE
--- NOTE | 2018-04-18 15:22 | REP ---
Ultrasound-guided paracentesis The procedure was performed under the direct supervision of Dr. De La Rosa. The risks and benefits of the procedure were explained to the patient and informed consent was obtained. The largest pocket of fluid was localized in the left flank using ultrasound guidance. The skin was prepped and draped in a sterile fashion. 1% lidocaine was used as a local anesthetic. An 8-Nepali multi side-hole catheter was inserted using trocar technique. 4325 ml of clear yellow fluid was withdrawn and discarded. The patient tolerated the procedure well and there were no immediate complications. After the appropriate amount of monitored convalescence the patient was discharged from the department. Reviewed by RIVERA Gaona 04/17/2018 05:15 P Electronically Signed by Hector De La Rosa MD 04/18/2018 03:13 P
== END ==
LOC: M RADPRO 13:31
PROVIDERS: ATTEND Internal Medicine Nephrology
DX: K74.60 Unspecified cirrhosis of liver (principal); R18.8 Other ascites; Z99.2 Dependence on renal dialysis

== ENCOUNTER → 2018-04-24 | Outpatient (CLI) | payer BC, MEDICARE ==
--- NOTE | 2018-04-24 19:29 | REP ---
Ultrasound-guided paracentesis The procedure was performed under the direct supervision of Dr. Ellison. The risks and benefits of the procedure were explained to the patient and informed consent was obtained. The largest pocket of fluid was localized in the right flank using ultrasound guidance. The skin was prepped and draped in a sterile fashion. 1% lidocaine was used as a local anesthetic. An 8-Romanian multi side-hole catheter was inserted using trocar technique. 4700 ml of yellow fluid was withdrawn and discarded. The patient tolerated the procedure well and there were no immediate complications. After the appropriate amount of monitored convalescence the patient was discharged from the department. Reviewed by RIVERA Gaona 04/24/2018 05:04 P Electronically Signed by Mane Ellison MD 04/24/2018 07:19 P
== END ==
LOC: M RADPRO 13:38
PROVIDERS: ATTEND Internal Medicine Nephrology
DX: K74.60 Unspecified cirrhosis of liver (principal); R18.8 Other ascites; Z99.2 Dependence on renal dialysis; Z79.899 Other long term (current) drug therapy

== ENCOUNTER → 2018-05-01 | Outpatient (CLI) | payer BC, MEDICARE ==
--- NOTE | 2018-05-01 16:38 | REP ---
Ultrasound-guided paracentesis The procedure was performed under the direct supervision of Dr. Marcus. The risks and benefits of the procedure were explained to the patient and informed consent was obtained. The largest pocket of fluid was localized in the left flank using ultrasound guidance. The skin was prepped and draped in a sterile fashion. 1% lidocaine was used as a local anesthetic. An 8-English multi side-hole catheter was inserted using trocar technique. 4600 ml of yellow fluid was withdrawn and discarded. The patient tolerated the procedure well and there were no immediate complications. After the appropriate amount of monitored convalescence the patient was discharged from the department. Reviewed by RIVERA Gaona 05/01/2018 03:31 P Electronically Signed by Jose C Marcus MD 05/01/2018 04:29 P
== END ==
LOC: M RADPRO 13:44
PROVIDERS: ATTEND Internal Medicine Nephrology
DX: R18.8 Other ascites (principal); K74.60 Unspecified cirrhosis of liver; Z99.2 Dependence on renal dialysis; Z79.899 Other long term (current) drug therapy

== ENCOUNTER → 2018-05-08 | Outpatient (CLI) | payer BC, MEDICARE ==
--- NOTE | 2018-05-08 17:05 | REP ---
Ultrasound-guided paracentesis The procedure was performed under the direct supervision of Dr. De La Rosa. The risks and benefits of the procedure were explained to the patient and informed consent was obtained. The largest pocket of fluid was localized in the left flank using ultrasound guidance. The skin was prepped and draped in a sterile fashion. 1% lidocaine was used as a local anesthetic. An 8-Slovenian multi side-hole catheter was inserted using trocar technique. 3900 ml of yellow fluid was withdrawn and discarded. The patient tolerated the procedure well and there were no immediate complications. After the appropriate amount of monitored convalescence the patient was discharged from the department. Reviewed by RIVERA Gaona 05/08/2018 03:52 P Electronically Signed by Hector De La Rosa MD 05/08/2018 04:57 P
== END ==
LOC: M RADPRO 13:39
PROVIDERS: ATTEND Internal Medicine Nephrology
DX: R18.8 Other ascites (principal); K74.60 Unspecified cirrhosis of liver; Z99.2 Dependence on renal dialysis; Z79.899 Other long term (current) drug therapy

== ENCOUNTER → 2018-05-15 | Outpatient (CLI) | payer BC, MEDICARE ==
--- NOTE | 2018-05-15 18:50 | REP ---
Ultrasound-guided paracentesis The procedure was performed under the direct supervision of Dr. Ellison. The risks and benefits of the procedure were explained to the patient and informed consent was obtained. The largest pocket of fluid was localized in the right flank using ultrasound guidance. The skin was prepped and draped in a sterile fashion. 1% lidocaine was used as a local anesthetic. An 8-Nepali multi side-hole catheter was inserted using trocar technique. 4,050 ml of yellow fluid was withdrawn and discarded. The patient tolerated the procedure well and there were no immediate complications. After the appropriate amount of monitored convalescence the patient was discharged from the department. Reviewed by RIVERA Gaona 05/15/2018 03:31 P Electronically Signed by Mane Ellison MD 05/15/2018 06:42 P
== END ==
LOC: M RADPRO 09:25
PROVIDERS: ATTEND Internal Medicine Nephrology
DX: R18.8 Other ascites (principal); K74.60 Unspecified cirrhosis of liver; Z99.2 Dependence on renal dialysis

== ENCOUNTER → 2018-05-15 | Outpatient (CLI) | payer BC, MEDICARE ==
[~2018-05-15] MED LIST changes: -ASCO25TA PO; +ISOVUE-300 61% 50ML VIAL (Q9967) As Ordered ONE; +LIDOCAINE 2% MDV 20 ML VIAL As Ordered ONE; +VITA1TAB23 PO
--- NOTE | 2018-06-04 09:00 | REPIR ---
DATE OF PROCEDURE: 05/15/2018 PREPROCEDURE DIAGNOSIS: End-stage renal disease, dysfunctional left brachiocephalic arteriovenous fistula, left hand pain. POSTPROCEDURE DIAGNOSIS: End-stage renal disease, dysfunctional left brachiocephalic arteriovenous fistula, left hand pain. PROCEDURE: Left brachiocephalic arteriovenous fistulogram, selective left brachial artery catheter placement with angiogram and runoff, left cephalic vein branch ligation times four. SURGEON: Dr. Juanita Polanco. WRECKER OPERATOR: Mary Suarez and Jayme Sun. INDICATION: The patient is a 67-year-old male with end-stage renal disease and a left brachiocephalic arteriovenous fistula with multiple large collaterals and left hand pain. The patient will undergo a fistulogram with possible ligation of collateral branches and/or embolization of collateral branches. Risks, benefits and alternative treatment options were discussed with the patient. ANESTHESIA: Local with 10 mL of 2% lidocaine. FLUORO TIME: 1.1 minutes. CONTRAST: 17 mL of Isovue 300. COMPLICATIONS: None. DRAINS: None. SPECIMENS: None. IMPLANTS: None. PROCEDURE: The patient was taken to the angiography suite and placed supine on the angiography room table and prepped and draped in a standard surgical fashion. The arteriovenous fistula was cannulated and a catheter placed in the left brachial artery in a retrograde fashion and a left brachial artery angiogram with runoff was performed showing sluggish flow in the brachial artery distal to the arteriovenous anastomosis and multiple large collaterals originating off the cephalic vein in the upper arm. The cephalic vein collaterals were ligated through stab incisions with #2-0 silk suture. A completion fistulogram showed no further flow into the large collateral branches with better flow into the brachial artery distal to the arteriovenous anastomosis and no stenosis at the arteriovenous anastomosis. The catheter was removed and manual compression applied at the puncture site for hemostasis. Dressings were then applied. The patient tolerated the procedure well. All instrument, sponge, and needle counts were correct at the end of the case. There were no complications. Dr. Polanco was present for and directed the entire case. The patient was transferred to the holding area and subsequently discharged in stable condition.
== END | disposition home or self-care (01) ==
LOC: M IRPRO 09:22
PROVIDERS: ATTEND Surgery Vascular Surgery
DX: T82.898A Other specified complication of vascular prosthetic devices, implants and grafts, initial encounter (principal); N18.6 End stage renal disease; Z99.2 Dependence on renal dialysis; Y92.9 Unspecified place or not applicable; X58.XXXA Exposure to other specified factors, initial encounter
CPT/HCPCS: 36832; C1769; C1887; C1894; Q9967

== ENCOUNTER → 2018-05-29 | Outpatient (CLI) | payer BC, MEDICARE ==
[~2018-05-29] MED LIST changes: -ISOVUE-300 61% 50ML VIAL (Q9967) As Ordered ONE; -LIDOCAINE 2% MDV 20 ML VIAL As Ordered ONE
--- NOTE | 2018-05-29 16:25 | REP ---
Ultrasound-guided paracentesis The procedure was performed under the direct supervision of Dr. De La Rosa. The risks and benefits of the procedure were explained to the patient and informed consent was obtained. The largest pocket of fluid was localized in the right flank using ultrasound guidance. The skin was prepped and draped in a sterile fashion. 1% lidocaine was used as a local anesthetic. Using ultrasound guidance an 8-Burundian multi side-hole catheter was inserted using trocar technique. 4300 ml of yellow fluid was withdrawn and discarded. The patient tolerated the procedure well and there were no immediate complications. After the appropriate amount of monitored convalescence the patient was discharged from the department. Reviewed by RIVERA Gaona 05/29/2018 03:48 P Electronically Signed by Hector De La Rosa MD 05/29/2018 04:16 P
== END ==
LOC: M RADPRO 13:34
PROVIDERS: ATTEND Internal Medicine Nephrology
DX: R18.8 Other ascites (principal); K74.60 Unspecified cirrhosis of liver; Z99.2 Dependence on renal dialysis; Z79.899 Other long term (current) drug therapy

== ENCOUNTER → 2018-06-05 | Outpatient (CLI) | payer BC, MEDICARE ==
--- NOTE | 2018-06-05 17:02 | REP ---
Ultrasound-guided paracentesis The procedure was performed under the direct supervision of Dr. De La Rosa. The risks and benefits of the procedure were explained to the patient and informed consent was obtained. The largest pocket of fluid was localized in the right flank using ultrasound guidance. The skin was prepped and draped in a sterile fashion. 1% lidocaine was used as a local anesthetic. An 8-Korean multi side-hole catheter was inserted using trocar technique. 4900 ml of yellow fluid was withdrawn and discarded. The patient tolerated the procedure well and there were no immediate complications. After the appropriate amount of monitored convalescence the patient was discharged from the department. Reviewed by RIVERA Gaona 06/05/2018 04:48 P Electronically Signed by Hector De La Rosa MD 06/05/2018 04:53 P
== END ==
LOC: M RADPRO 13:40
PROVIDERS: ATTEND Internal Medicine Nephrology
DX: R18.8 Other ascites (principal); K74.60 Unspecified cirrhosis of liver; Z99.2 Dependence on renal dialysis

== ENCOUNTER → 2018-06-12 | Outpatient (CLI) | payer BC, MEDICARE ==
--- NOTE | 2018-06-12 18:39 | REP ---
Ultrasound-guided paracentesis The procedure was performed under the direct supervision of Dr. Marcus. The risks and benefits of the procedure were explained to the patient and informed consent was obtained. The largest pocket of fluid was localized in the left flank using ultrasound guidance. The skin was prepped and draped in a sterile fashion. 1% lidocaine was used as a local anesthetic. An 8-Kenyan multi side-hole catheter was inserted using trocar technique. 4200 ml of shaista colored fluid was withdrawn and discarded. The patient tolerated the procedure well and there were no immediate complications. After the appropriate amount of monitored convalescence the patient was discharged from the department. Reviewed by RIVERA Gaona 06/12/2018 04:08 P Electronically Signed by Jose C Marcus MD 06/12/2018 06:30 P
== END ==
LOC: M RADPRO 13:30
PROVIDERS: ATTEND Internal Medicine Nephrology
DX: R18.8 Other ascites (principal); K74.60 Unspecified cirrhosis of liver; Z99.2 Dependence on renal dialysis

== ENCOUNTER → 2018-06-19 | Outpatient (CLI) | payer BC, MEDICARE ==
--- NOTE | 2018-06-19 17:27 | REP ---
Ultrasound-guided paracentesis The procedure was performed under the direct supervision of Dr. Marcus. The risks and benefits of the procedure were explained to the patient and informed consent was obtained. The largest pocket of fluid was localized in the left flank using ultrasound guidance. The skin was prepped and draped in a sterile fashion. 1% lidocaine was used as a local anesthetic. An 8-English multi side-hole catheter was inserted using trocar technique. 4400 ml of yellow fluid was withdrawn and discarded. The patient tolerated the procedure well and there were no immediate complications. After the appropriate amount of monitored convalescence the patient was discharged from the department. Reviewed by RIVERA Gaona 06/19/2018 05:13 P Electronically Signed by Jose C Marcus MD 06/19/2018 05:18 P
== END ==
LOC: M RADPRO 13:41
PROVIDERS: ATTEND Internal Medicine Nephrology
DX: R18.8 Other ascites (principal); K74.60 Unspecified cirrhosis of liver; Z99.2 Dependence on renal dialysis

== ENCOUNTER → 2018-06-26 | Outpatient (CLI) | payer BC, MEDICARE ==
--- NOTE | 2018-06-27 12:16 | REP ---
Ultrasound-guided paracentesis The procedure was performed by Wyatt Albrecht, under the direct supervision of Dr. De La Rosa. The risks and benefits of the procedure were explained to the patient and informed consent was obtained both verbally and written. Directly prior to the start of the procedure, a formal time a was completed in the procedure room. Under ultrasound guidance, the largest pocket of fluid in the right lower quadrant was localized and skin was marked. The skin was then prepped and draped in a sterile fashion. 10 ml of 1% lidocaine was used as a local anesthetic. Using ultrasound guidance, an 8-Guatemalan multiphase side-hole catheter was inserted using truck car technique. 4,250 mL of cloudy yellow colored fluid was withdrawn and discarded. The patient tolerated the procedure well and there were no immediate complications. After the appropriate monitored convalescence the patient was discharged from the department. Reviewed by RIVERA Padron 06/27/2018 10:51 A Electronically Signed by Hector De La Rosa MD 06/27/2018 12:06 P
== END ==
LOC: M RADPRO 12:41
PROVIDERS: ATTEND Internal Medicine Nephrology
DX: R18.8 Other ascites (principal); K74.60 Unspecified cirrhosis of liver; Z99.2 Dependence on renal dialysis

== ENCOUNTER → 2018-07-03 | Outpatient (CLI) | payer BC, MEDICARE ==
--- NOTE | 2018-07-04 11:15 | REP ---
Ultrasound-guided paracentesis The procedure was performed under the direct supervision of Dr. De La Rosa. The risks and benefits of the procedure were explained to the patient and informed consent was obtained. The largest pocket of fluid was localized in the right flank using ultrasound guidance. The skin was prepped and draped in a sterile fashion. 1% lidocaine was used as a local anesthetic. An 8-Mongolian multi side-hole catheter was inserted using trocar technique. 4300 ml of yellow fluid was withdrawn and discarded. The patient tolerated the procedure well and there were no immediate complications. After the appropriate amount of monitored convalescence the patient was discharged from the department. Reviewed by RIVERA Gaona 07/03/2018 04:38 P Electronically Signed by Hector De La Rosa MD 07/04/2018 11:07 A
== END ==
LOC: M RADPRO 13:32
PROVIDERS: ATTEND Internal Medicine Nephrology
DX: R18.8 Other ascites (principal); K74.60 Unspecified cirrhosis of liver; Z99.2 Dependence on renal dialysis

== ENCOUNTER → 2018-07-10 | Outpatient (CLI) | payer BC, MEDICARE ==
--- NOTE | 2018-07-10 16:16 | REP ---
Ultrasound-guided paracentesis The procedure was performed by Wyatt Albrecht, under the direct supervision of Dr. De La Rosa. The risks and benefits of the procedure were explained to the patient and informed consent was obtained both verbally and written. Directly prior to the start of the procedure, a formal timeout was completed in the procedure room. Under ultrasound guidance, the largest pocket of fluid in the left flank was localized and skin was marked. The skin was then prepped and draped in a sterile fashion. 10 ml of 1% lidocaine was used as a local anesthetic. Using ultrasound guidance, an 8-Cape Verdean multiphase side-hole catheter was inserted using trocar technique. 4,700 mL of cloudy yellow colored fluid was withdrawn and discarded. The patient tolerated the procedure well and there were no immediate complications. After the appropriate monitored convalescence the patient was discharged from the department. Reviewed by Maiar Olivera, RIVERA 07/10/2018 03:23 P Electronically Signed by Hector De La Rosa MD 07/10/2018 04:07 P
== END ==
LOC: M RADPRO 14:00
PROVIDERS: ATTEND Internal Medicine Nephrology
DX: R18.8 Other ascites (principal); K74.60 Unspecified cirrhosis of liver; Z99.2 Dependence on renal dialysis

== ENCOUNTER → 2018-07-17 | Outpatient (CLI) | payer BC, MEDICARE ==
--- NOTE | 2018-07-17 20:37 | REP ---
Ultrasound-guided paracentesis The procedure was performed by RIVERA Albrecht, under the direct supervision of Dr. Marcus. The risks and benefits of the procedure were explained to the patient and informed consent was obtained both verbally and written. Directly prior to the start of the procedure, a formal timeout was completed in the procedure room. Under ultrasound guidance, the largest pocket of fluid in the left flank was localized and skin was marked. The skin was then prepped and draped in a sterile fashion. 10 ml of 1% lidocaine was used as a local anesthetic. Using ultrasound guidance, an 8-Kittitian multiphase side-hole catheter was inserted using trocar technique. 4,850 mL of cloudy yellow colored fluid was withdrawn and discarded. The patient tolerated the procedure well and there were no immediate complications. After the appropriate monitored convalescence the patient was discharged from the department. Reviewed by RIVERA Padron 07/17/2018 02:52 P Electronically Signed by Jose C Marcus MD 07/17/2018 08:28 P
== END ==
LOC: M RADPRO 13:41
PROVIDERS: ATTEND Internal Medicine Nephrology
DX: R18.8 Other ascites (principal); K74.60 Unspecified cirrhosis of liver; Z99.2 Dependence on renal dialysis

== ENCOUNTER → 2018-07-24 | Outpatient (CLI) | payer BC, MEDICARE ==
--- NOTE | 2018-07-25 14:46 | REP ---
Ultrasound-guided paracentesis The procedure was performed by RIVERA Albrecht, under the direct supervision of Dr. De La Rosa. The risks and benefits of the procedure were explained to the patient and informed consent was obtained both verbally and written. Directly prior to the start of the procedure, a formal timeout was completed in the procedure room. Under ultrasound guidance, the largest pocket of fluid in the right flank was localized and skin was marked. The skin was then prepped and draped in a sterile fashion. 10 ml of 1% lidocaine was used as a local anesthetic. Using ultrasound guidance, an 8-[place] Islander multiphase side-hole catheter was inserted using trocar technique. 4,500 mL of dark cloudy yellow colored fluid was withdrawn and discarded. The patient tolerated the procedure well and there were no immediate complications. After the appropriate monitored convalescence the patient was discharged from the department. Reviewed by RIVERA Padron 07/24/2018 04:26 P Electronically Signed by Hector De La Rosa MD 07/25/2018 02:37 P
== END ==
LOC: M RADPRO 13:19
PROVIDERS: ATTEND Internal Medicine Nephrology
DX: R18.8 Other ascites (principal); K74.60 Unspecified cirrhosis of liver; Z99.2 Dependence on renal dialysis

== ENCOUNTER → 2018-07-31 | Outpatient (CLI) | payer BC, MEDICARE ==
[~2018-07-31] MED LIST changes: +DRIS50003 PO; +NYST1POW9 TOP; +ROPI0.253 PO; +VELP5CHW PO
--- NOTE | 2018-08-01 16:19 | REP ---
Ultrasound-guided paracentesis The procedure was performed by RIVERA Albrecht, under the direct supervision of Dr. De La Rosa. The risks and benefits of the procedure were explained to the patient and informed consent was obtained both verbally and written. Directly prior to the start of the procedure, a formal timeout was completed in the procedure room. Under ultrasound guidance, the largest pocket of fluid in the right flank was localized and skin was marked. The skin was then prepped and draped in a sterile fashion. 10 ml of 1% lidocaine was used as a local anesthetic. Using ultrasound guidance, an 8-Indonesian multiphase side-hole catheter was inserted using trocar technique. 4,600 mL of cloudy yellow colored fluid was withdrawn and discarded. The patient tolerated the procedure well and there were no immediate complications. After the appropriate monitored convalescence the patient was discharged from the department. Reviewed by RIVERA Padron 07/31/2018 05:07 P Electronically Signed by Hector De La Rosa MD 08/01/2018 04:10 P
== END ==
LOC: M RADPRO 13:42
PROVIDERS: ATTEND Internal Medicine Nephrology
DX: R18.8 Other ascites (principal); K74.60 Unspecified cirrhosis of liver; Z99.2 Dependence on renal dialysis

== ENCOUNTER 2018-08-05 10:02 | Inpatient (IN) | payer BC, MEDICARE ==
[~2018-08-05] VITALS: Ht 180.3 cm; Wt 89.0 kg
[~2018-08-05 10:02] MED LIST changes: +DOCUSATE SODIUM 100 MG CAP PO SCH; -DRIS50003 PO; -NYST1POW9 TOP; +PATIROMER SORBITEX CALCIUM 8.4 GM POWDER PACKET (VELTASSA) PO SCH; -ROPI0.253 PO; -VELP5CHW PO
[2018-08-05 10:52] LABS: BASO # 0.1 10^3/uL (0.0-0.2); EOS # 0.2 10^3/uL (0.0-0.50); EOS % 2.1 % (0.0-3.0); HEMATOCRIT 37.1 % (42.0-52.0); LYMPH # 0.7 10^3/uL (1.5-4.5); LYMPH % 8.5 % (24.0-44.0); MEAN CORPUSCULAR HGB CONC 29.6 g/dl (32.0-36.5); MEAN CORPUSCULAR VOLUME 104.5 fl (80.0-96.0); MONO # 1.3 10^3/uL (0.0-0.8); MONO % 15.7 % (0.0-5.0); NEUTROPHILS # 5.7 10^3/uL (1.8-7.7); PLATELET COUNT, AUTOMATED 182 10^3/uL (150-450); RED BLOOD COUNT 3.55 10^6/uL (4.30-6.10); WHITE BLOOD COUNT 8.3 10^3/uL (4.0-10.0)
--- NOTE | 2018-08-05 11:07 | REP ---
PORTABLE CHEST: AP portable view of the chest is performed and compared to a prior study of 12/30/2017. There is mild increase in the moderate to large right pleural effusion. Bibasilar atelectatic changes appear essentially stable. There is cardiomegaly with venous hypertension. Multiple sternal wires are noted. There is calcification of the thoracic aorta. IMPRESSION: Cardiomegaly and venous hypertension. Mild increase in moderate to large right effusion. Bibasilar atelectatic changes appear stable. Electronically Signed by Hector De La Rosa MD 08/05/2018 12:38 P
[2018-08-05 11:27] LABS: ALBUMIN 2.6 GM/DL (3.2-5.2); BILIRUBIN,DIRECT 0.3 MG/DL (0.0-0.2); BILIRUBIN,TOTAL 0.6 MG/DL (0.2-1.0); CALCIUM LEVEL 8.6 MG/DL (8.8-10.2); CREATININE FOR GFR 4.76 MG/DL (0.70-1.30); GLOMERULAR FILTRATION RATE 13.1 (>49); MB/CK RELATIVE INDEX 19.66 (< OR =4); POTASSIUM SERUM 4.7 MEQ/L (3.5-5.1); THYROID STIMULATING HORMONE 2.47 uIU/ML (0.358-3.740); TOTAL PROTEIN 6.6 GM/DL (6.4-8.2); TROPONIN I 0.03 NG/ML (< 0.10)
--- NOTE | 2018-08-05 11:49 | REP ---
LEFT HIP, AP PELVIS, THREE VIEWS: HISTORY: Trauma. There is no acute fracture or dislocation. There is mild narrowing of the joint space. A calcified density is present lateral to the acetabulum. This represents ligamentous or tendon calcification. IMPRESSION: There is no acute fracture or dislocation. Electronically Signed by Juan Gonzalez MD 08/05/2018 11:50 A
--- NOTE | 2018-08-05 12:02 | REP ---
Bilateral lower extremity Duplex Doppler venous ultrasound: Real time compression and duplex Doppler interrogation of the bilateral lower extremity deep venous system is performed. Bilaterally, the common femoral, superficial femoral and popliteal veins are fully compressible with transducer pressure and demonstrate normal spontaneous and phasic flow, without evidence of deep venous thrombosis. Impression: No evidence of deep venous thrombosis of the bilateral lower extremity femoral popliteal venous system. Electronically Signed by Hector De La Rosa MD 08/05/2018 11:53 A
[2018-08-05] MEDS ORDERED: VELP5CHW PO (13:22)
[2018-08-05] MEDS ORDERED: ROPI0.253 PO (13:22)
[2018-08-05] MEDS ORDERED: DRIS50003 PO (13:22)
[2018-08-05] MEDS ORDERED: NYST1POW9 TOP (13:25)
[2018-08-05] MEDS ORDERED: ACETAMINOPHEN TAB 650MG DOSE (2X325MG) PO PRN (13:45)
[2018-08-05] MEDS ORDERED: MAALOX 30 ML SUSP *UDC PO PRN (13:45)
[2018-08-05] MEDS ORDERED: MOM 30ML SUSPENSION UDC PO PRN (13:45)
[2018-08-05] MEDS ORDERED: NYSTATIN 100,000 UNITS/GM TOPICAL PWD 15 GM TOP PRN (14:00)
[2018-08-05] MEDS ORDERED: HEPARIN 1,000 UNITS/ML 10ML VIAL (FOR RADIOLOGY& DIALYSIS ONLY) IV ONE (14:15)
[2018-08-05] MEDS ORDERED: LIDOCAINE 1% SDV 5 ML VIAL SQ ONE (14:15)
[2018-08-05] MEDS ORDERED: SUCROFERRIC OXYHYDROXIDE 500MG CHEW TAB (VELPHORO) PO SCH (16:00)
[2018-08-05 18:45] VITALS: BP 103/60
[2018-08-05] MEDS: MIDODRINE 5 MG TAB PO SCH (19:30)
[2018-08-05] MEDS: PANTOPRAZOLE 40MG TAB (PROTONIX) PO SCH (19:30)
[2018-08-05] MEDS: FOLIC ACID 1 MG TAB PO SCH (19:30)
[2018-08-05] MEDS: FERROUS GLUCONATE 324 MG TAB PO SCH (19:30)
--- NOTE | 2018-08-05 19:42 | HPEPDOC ---
General Date of Admission 08/05/18 Date of Service: Aug 05, 2018 Primary Care Physician: GIO GENTILE DO Chief Complaint The patient is a 67-year-old male admitted with a reason for visit of CHF. Source: Patient, Other (nephrology- Dr Gamble) Exam Limitations: Mild cognitive slowing Timing/Duration: 24 hours, Changing over time, Other (started yesterday after dialysis, then improved, worsened during night and this morning at 0300 had syncope episode walking to bathroom) Severity: Severe Associated Symptoms: Loss of appetite, Malaise, Shortness of breath, Weakness, Hypotension, Dizziness, Mechanical fall History of Present Illness 67yo male with ESRD on dialysis M,W,F states felt "weak" after mondays dialysis and given 1 liter NS fluid. States felt better and went out of lunch. As evening progressed, he felt weaker and unable to sleep at night because of SOB and feeling like someone was pumping "ice water thru my veins". States at 0300 got up, used walker and went to bathroom and had lighthead, blurry vision and brief syncope episode lasting seconds. heard him fall, he was able to get up again with no injury to left side. states syncope usually occurs 1-2 x month after dialysis and states is from his low blood pressure. He went to PCP office today for routine follow up (not because of syncope) who sent him to ED for further evaluation of syncope. In the ED he was found to be mildy hypoxic (89% on RA), short of breath and in fluid overload state with worsening right pleural effusion. Home Medications Scheduled Atorvastatin Calcium (Lipitor) 20 Mg Tab, 20 MG PO QHS, (Reported) Docusate Sodium (Colace) 100 Mg Cap, 100 MG PO DAILY, (Reported) Ergocalciferol (Vitamin D2) (Drisdol) 50,000 Unit Capsule, 50,000 UNIT PO 1XWK, (Reported) SUNDAYS Ferrous Gluconate (Ferrous Gluconate) 324 Mg Tab, 324 MG PO DAILY, (Reported) Folic Acid (Folic Acid) 1 Mg Tab, 1 MG PO DAILY, (Reported) Gabapentin (Gabapentin) 100 Mg Cap, 100 MG PO QAM, (Reported) Gabapentin (Gabapentin) 100 Mg Cap, 300 MG PO QHS, (Reported) Midodrine HCl (Midodrine HCl) 10 Mg Tab, 10 MG PO TID, (Reported) Pantoprazole Sodium (Protonix) 40 Mg Tab, 40 MG PO DAILY, (Reported) Patiromer Calcium Sorbitex (Veltassa) 8.4 Gm Pow, 8.4 GM PO DAILY, (Reported) Ropinirole HCl (Ropinirole HCl) 0.25 Mg Tablet, 0.25 MG PO QHS, (Reported) Sertraline Hcl (Zoloft) 25 Mg Tab, 50 MG PO QHS, (Reported) Sucroferric Oxyhydroxide (Velphoro) 500 Mg Tab.chew, 500 MG PO TID, (Reported) Scheduled PRN Nystatin (Nystatin Powder) 15 Gm Powder, 1 APLCT TOP BID PRN for RASH/ITCHING, (Reported) apply to affected area(s) Allergies Coded Allergies: No Known Allergies (Unverified , 08/05/18) Past Medical History Medical History ESRD, hyperlipidemia, hypotension, neuropathy, CAD with [place] 01/2017 resulting in CABGx3; diet controlled diabetes Surgical History CABGx3 (01/2017), left arm fistula for dialysis; right leg vein harvesting; Family History Significant Family History: Heart disease (mother age 87) father [place] age 80 Social History * Smoker: non-smoker Alcohol: occationally Drugs: denies Recent Travel/Sick Contacts: Denies: Recent travel, Recent sick contacts A-FIB/CHADSVASC A-FIB History Current/History of A-Fib/PAF?: No Review of Systems Constitutional: Reports: Malaise, Weakness Cardiovascular: Reports: Lt Headedness Gastrointestinal: Reports: Constipation Genitourinary: Reports: Other Symptoms (oliguria (voids about 50cc/day)) Endocrine: Reports: Cold Intolerance Other systems 10 comprehensive system reviewed and negative exceept as per HPI or listed above Physical Examination General Exam: Positive: Alert, No Acute Distress (just finished with dialysis and able to lie supine in bed) Eye Exam: Positive: PERRLA, EOMI, Other Eye Symptoms (no scleral icterus; conjunctiva injected bilaterally but no discharge; no signs of conjuctivitis) Neck Exam: Positive: Supple, +2 carotid pulse wo bruit Chest Exam: Positive: Clear to auscultation, Diminished Heart Exam: Positive: Rate Normal, Regular Rhythm Abdomen Exam: Positive: Normal bowel sounds, Soft, Other (non tender, non distended) Extremity Exam: Positive: Edema (1+ bilateral ankle edema), Normal pulses, Other (left arm fistula (clamp in place post dialysis)) Skin Exam: Positive: Nl turgor and temperature Neuro Exam: Positive: Normal Speech, Sensation Intact, Cranial Nerves 3-12 NL Psych Exam: Positive: Mental status NL, Mood NL, Oriented x 3 Vital Signs Vital Signs Date Time Temp Pulse Resp B/P (MAP) Pulse Ox O2 Delivery O2 Flow Rate FiO2 08/05/18 12:41 08/05/18 12:33 91 14 89 08/05/18 10:03 97.9 Room Air Laboratory Data Labs 24H Laboratory Tests 2 08/05/18 10:38: Immature Granulocyte % (Auto) 3.7H, White Blood Count 8.3, Red Blood Count 3.55L, Hemoglobin 11.0L, Hematocrit 37.1L, Mean Corpuscular Volume 104.5H, Mean Corpuscular Hemoglobin 31.0, Mean Corpuscular Hemoglobin Concent 29.6L, Red Cell Distribution Width 15.9H, Platelet Count 182, Neutrophils (%) (Auto) 69.0H, Lymphocytes (%) (Auto) 8.5L, Monocytes (%) (Auto) 15.7H, Eosinophils (%) (Auto) 2.1, Basophils (%) (Auto) 1.0, Neutrophils # (Auto) 5.7, Lymphocytes # (Auto) 0.7L, Monocytes # (Auto) 1.3H, Eosinophils # (Auto) 0.2, Basophils # (Auto) 0.1, Nucleated Red Blood Cells % (auto) 0.0, Anion Gap 8, Glomerular Filtration Rate 13.1L, Calcium Level 8.6L, Aspartate Amino Transf (AST/SGOT) 23, Alanine Aminotransferase (ALT/SGPT) 24, Alkaline Phosphatase 242H, Total Bilirubin 0.6, Direct Bilirubin 0.3H, Total Creatine Kinase 58, Creatine Kinase MB 11.0H, Creatine Kinase MB Relative Index 19.66H, Troponin I 0.03, NZ-Whx-I-Type Natriuretic Peptide 29415L, Total Protein 6.6, Albumin 2.6L, Albumin/Globulin Ratio 0.65L, Thyroid Stimulating Hormone (TSH) 2.470 CBC/BMP Laboratory Tests 08/05/18 10:38 Red Blood Count 3.55 L, Mean Corpuscular Volume 104.5 H, Mean Corpuscular Hemoglobin 31.0, Mean Corpuscular Hemoglobin Concent 29.6 L, Red Cell Distribution Width 15.9 H, Neutrophils (%) (Auto) 69.0 H, Lymphocytes (%) (Auto) 8.5 L, Monocytes (%) (Auto) 15.7 H, Eosinophils (%) (Auto) 2.1, Basophils (%) (Auto) 1.0, Neutrophils # (Auto) 5.7, Lymphocytes # (Auto) 0.7 L, Monocytes # (Auto) 1.3 H, Eosinophils # (Auto) 0.2, Basophils # (Auto) 0.1 RAD Interpretation STUDY: CXR Rad Actions: Report Reviewed, Films Reviewed RAD Interpretation: Worse (right pleural effusion - moderate) Problems (1) ESRD (end stage renal disease) on dialysis Permanent Comment: with chronic hypotension Last Edited By: Lisseth Hawley MD on Aug 05, 2018 19:51 Status: Chronic Response to Treatment: Improving Problem Text: dialysis today and again in AM. nephrology consulted (2) Fluid overload, unspecified Status: Acute Response to Treatment: Improving (3) Bilateral lower extremity edema Status: Acute (4) Pleural effusion Status: Acute Problem Specific Plan: Consult Specialist Problem Text: US guided thorocentesis tomorrow 08/06/18 (5) Diabetes Permanent Comment: diet controlled, without snf insulin, without hyperglycemia Last Edited By: Lisseth Hawley MD on Aug 05, 2018 19:51 Status: Chronic Response to Treatment: Stable, Controlled Plan / VTE VTE Prophylaxis Ordered?: Yes Plan Plan as above, dialysis, thorocentesis, consult nephrology. wean off supplemental oxygen, continue home meds, monitor blood sugar and hypotension. CODE status: full; surrogate health care proxy - Miranda; has advance directive stating if vegetative state, then prefers DNR. Patient wants full code at this time. LISSETH HAWLEY DO Aug 05, 2018 13:39
[2018-08-05] MEDS ORDERED: HEPARIN SOD (PORCINE) 5000 UNITS/ML VIAL SQ ONE (21:00)
[2018-08-05] MEDS: SERTRALINE HCL 25 MG TABLET PO SCH (21:22)
[2018-08-05] MEDS: ATORVASTATIN 20 MG TAB PO SCH (21:22)
[2018-08-05] MEDS: DOCUSATE SODIUM 100 MG CAP PO SCH (21:22)
[2018-08-05] MEDS: rOPINIRole 0.25 MG TAB(REQUIP) PO SCH (21:22)
[2018-08-05] MEDS: GABAPENTIN 300 MG CAP PO SCH (21:22)
[2018-08-05 22:00] VITALS: BP 103/60
[2018-08-06 02:00] VITALS: BP 118/75
[2018-08-06] MEDS: FERROUS GLUCONATE 324 MG TAB PO SCH (05:54)
[2018-08-06] MEDS: DOCUSATE SODIUM 100 MG CAP PO SCH ×2 (05:54→20:11)
[2018-08-06] MEDS: FOLIC ACID 1 MG TAB PO SCH (05:54)
[2018-08-06] MEDS: PANTOPRAZOLE 40MG TAB (PROTONIX) PO SCH (05:54)
[2018-08-06 06:00] VITALS: BP 121/74
--- NOTE | 2018-08-06 07:01 | CR ---
DATE OF CONSULTATION: 08/05/2018 REQUESTING PHYSICIAN: Dr. Addie Ambrosio REASON FOR CONSULTATION: Management of end-stage renal disease on hemodialysis. HISTORY OF PRESENT ILLNESS: Александр Humphrey is well known to me, he is a 67-year-old male with a past medical history of severe right heart failure (was evaluated for right ventricular assist device and felt to be a poor candidate), history of end-stage renal disease on hemodialysis on a Saturday, Saturday, Saturday schedule, chronic hypotension, anemia related to a chronic renal failure, dyslipidemia, secondary hyperparathyroidism, diabetic with neuropathy and other comorbid conditions mentioned below. The patient is notoriously noncompliant with fluid restriction and also with potassium restriction. He is chronically volume overloaded and has very large interdialytic fluid gains in between his hemodialysis treatment. He also requires weekly paracentesis because of recurrent ascites related to his severe right heart failure. The patient is also dependent on daily Veltassa for control of his potassium as he does not comply with the potassium restriction in the diet. He came to the emergency room for complaint of fluid overload, shortness of breath and weakness. Reports blood pressures were soft on his most recent dialysis treatment and he did not have aggressive fluid removal. In the emergency room he was found to have oxygen saturation of 89% on room air with a worsening right pleural effusion and the patient was admitted for the same and nephrology consultation is requested for management of his to hemodialysis. PAST MEDICAL HISTORY: End-stage renal disease on hemodialysis Saturday, Saturday, Saturday, severe right heart failure, hypotension, dyslipidemia, neuropathy, coronary artery disease, diet controlled diabetes, anemia related to chronic renal failure, secondary hyperparathyroidism of renal origin, restless leg syndrome, recurrent hyperkalemia. PAST SURGICAL HISTORY: Coronary artery bypass graft (CABG) times three, fistula and recurrent paracentesis once weekly and right leg vein harvesting. ALLERGIES: No known allergies. FAMILY HISTORY: Is significant for heart disease. SOCIAL HISTORY: He is a nonsmoker, is , there is no drug use and there is social alcohol. HOME MEDICATIONS: Are reviewed and include: atorvastatin, ergocalciferol, docusate, ferrous gluconate, folic acid, gabapentin, midodrine 10 mg by mouth three times a day, Protonix, Veltassa 8.4 grams by mouth daily, ropinirole 0.25 mg by mouth at bedtime, sertraline, and Velphoro 500 mg by mouth three times a day by mouth three times a day. REVIEW OF SYSTEMS: Constitutional: He reports generalized weakness and malaise. Eyes: He denies any new visual changes or tearing. ENT: He denies odynophagia or rhinorrhea. Cardiac: He has severe right heart failure. He has coronary artery disease, chronic hypotension. Cardiac ascites. Respiratory: Shortness of breath, pleural effusion. Gastrointestinal: He denies nausea, vomiting, diarrhea. He has recurrent ascites. He receives paracentesis once per week, last paracentesis was last . Genitourinary: He is oliguric. Endocrine: There is neuropathy and diet-controlled diabetes. There is recurrent hyperkalemia. Hematologic: There is anemia of chronic renal failure. Musculoskeletal: He reports chronic leg swelling. Neurologic: He denies seizures. Chart mentions episode of syncope though patient did not report any such thing to me. Vital signs: Temperature 96.6, pulse 88, respiratory rate 20, blood pressure 103/60, saturating 97% on 2 liters nasal cannula. Hemodialysis today removed 2 liters. General: The patient is seen on dialysis receiving his treatment lying flat in the stretcher, awake, alert and oriented times three, in no acute distress. Extraocular muscles are intact. Tongue is moist. Jugular veins are elevated. Cardiac: S1-S2. There is 2+ edema in the lower extremities. Respiratory: Diminished breath sounds at the bases. Abdomen: Is soft and there is ascitic fluid in place. Extremities: Show chronic leg edema 2+ and a left arm fistula which is presently in use. Neurologic: He is oriented times three, interactive and conversational. LABORATORY DATA: White count 8.3, hemoglobin 11.0, platelets 182. Sodium 135, potassium 4.7, bicarbonate 28, BNP 16,000. IMAGING: Chest x-ray August 05 cardiomegaly, moderate to large right pleural effusion. INPATIENT MEDICATIONS: Reviewed by myself. Tylenol as needed, Mylanta as needed, atorvastatin 20 mg by mouth at bedtime, ferrous gluconate 324 mg by mouth daily, folic acid 1 mg by mouth daily, gabapentin 300 mg by mouth at bedtime, 100 mg by mouth every morning, heparin 5000 units subcutaneous every 12, midodrine 10 mg by mouth three times a day, Protonix 40 mg by mouth daily, Veltassa 8.4 grams by mouth daily, ropinirole 0.25 mg by mouth at bedtime, Velphoro 500 mg by mouth with meals. PROBLEMS: 1. End-stage renal disease on hemodialysis Saturday, Saturday, Saturday schedule and this patient who is notoriously and chronically noncompliant with fluid restriction and also with potassium restriction. The patient has large interdialytic fluid gains, he did not tolerate aggressive of fluid removal with hemodialysis because of severe right heart failure and accompanying hypotension. He received extra dialysis treatment today with 2 liters of fluid removed and we will plan to dialyze him again tomorrow. Usually the only time his fluid status appreciably improves is when he is hospitalized and his fluid and diet intake is appropriately managed. 2. Severe right heart failure with chronic hypotension. Continue midodrine 10 mg by mouth three times a day. Volume status is regulated via hemodialysis. Extra treatment was arranged for today. He will be dialyzed again tomorrow. Continue fluid restriction. 3. Chronic hypotension. Continue Midodrine 10 mg by mouth three times a day. 4. Pleural effusion. The patient is requiring supplemental oxygen. His pleural effusion and moderate to large. Consider thoracentesis, defer to primary team. 5. Recurrent hyperkalemia. The patient's potassium levels are difficult to control in the outpatient setting and he has required Veltassa on a daily basis in addition to the hemodialysis for control of his potassium, however, when hospitalized in on a renal diet his potassium levels are usually appropriate. 6. Anemia related to chronic renal failure. Hemoglobin is 11.0 which is optimal and he will continue on the usual anemia protocol of end-stage renal disease. 7. Thank you for involving me in the care of Mr. Humphrey, I will be happy to follow him along with you.
--- NOTE | 2018-08-06 07:44 | ECGEPIP ---
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
[2018-08-06] MEDS ORDERED: LIDOCAINE 1% SDV 5 ML VIAL SQ ONE (08:00)
[2018-08-06] MEDS ORDERED: HEPARIN 1,000 UNITS/ML 10ML VIAL (FOR RADIOLOGY& DIALYSIS ONLY) IV ONE (08:00)
[2018-08-06] MEDS: MIDODRINE 5 MG TAB PO SCH ×3 (08:09→17:18)
[2018-08-06] MEDS: SUCROFERRIC OXYHYDROXIDE 500MG CHEW TAB (VELPHORO) PO SCH ×3 (08:09→17:18)
[2018-08-06] MEDS: GABAPENTIN 100 MG CAP PO SCH (08:09)
[2018-08-06] MEDS ORDERED: ENOXAPARIN 30 MG/0.3 ML SYR (J1650) SC SCH (09:00)
[2018-08-06 11:36] LABS: CALCIUM LEVEL 8.3 MG/DL (8.8-10.2); CREATININE FOR GFR 3.09 MG/DL (0.70-1.30); GLOMERULAR FILTRATION RATE 21.6 (>49); POTASSIUM SERUM 4.1 MEQ/L (3.5-5.1)
[2018-08-06] MEDS ORDERED: PATIROMER SORBITEX CALCIUM 8.4 GM POWDER PACKET (VELTASSA) PO SCH (12:00)
--- NOTE | 2018-08-06 12:35 | IPN ---
DATE OF SERVICE: 08/06/2018 SUBJECTIVE: Александр is seen and examined this morning in the hemodialysis unit receiving his maintenance treatment. He denies any overnight events or complaints. Continues on supplemental oxygen and is scheduled for a thoracentesis later this afternoon. Yesterday, he had 2 liters of fluid removed with dialysis and today goal fluid removal is about the same. Vital signs: Temperature 96.6, pulse 94, respiratory rate 20, blood pressure 121/74, saturating 94% on 3 liter nasal cannula. Intake yesterday was 780. Weight in the bed scale today is not recorded. Dialysis yesterday removed 2 liters. General: The patient is seen on hemodialysis awake, alert, oriented, comfortable, in no acute distress. Extraocular muscles are intact. Tongue is moist. Neck is supple. The jugular veins are very much elevated. Cardiac: S1, S2 There is 2+ edema in the lower extremities that extends all the way up to the hips, thigh and dependent areas. Respiratory: There are diminished breath sounds at both bases. He is on nasal cannula. There is no tachypnea nor accessory muscle use. Abdomen is soft. There is ascitic fluid in place. The extremities show chronic leg edema 2+, which goes all the way up to the hip and thigh, and the left arm fistula is presently in use. Neurologic: He is oriented times three, interactive and conversational. LABS: White count 8.3, hemoglobin 11. Sodium 136, potassium 4.1. INPATIENT MEDICATIONS: Reviewed by myself and no change from prior. PROBLEMS: 1. End-stage renal disease on hemodialysis on Saturday, Saturday, Saturday schedule in this patient who is notoriously and chronically noncompliant with fluid restriction and also potassium restriction and who is chronically volume overloaded and has large internal dialytic fluid gains. He came again with fluid overload. He was dialyzed on Saturday as an outpatient and yesterday we did an extra treatment, and today he is being dialyzed again, so now he has received three [id number] treatments for removal of fluid. Unfortunately, he does not tolerate aggressive ultrafiltration and fluid removal with hemodialysis because of his severe right heart failure and accompanying hypotension. Usually the only time his fluid status appreciably improves is when he is hospitalized and his fluid and diet intake is regulated by the nursing staff. 2. Severe right heart failure with chronic hypotension. Continue midodrine 10 mg three times a day. Continue fluid restriction. Has been dialyzed [id number] Saturday, Saturday, and Saturday. Next treatment will be on Saturday. Prognosis is poor given right heart failure, dialysis dependence, and generalized noncompliance. 3. Pleural effusion requiring supplemental oxygen. He is pending thoracentesis arranged for by the primary team. 4. Recurrent hyperkalemia. As an outpatient, his potassium levels are difficult to control given that he is noncompliant with diet and he does require daily Veltassa as an outpatient. However, in the hospital his potassium levels are usually reasonable, hence, I am discontinuing Veltassa for now while he is in-house 5. Anemia related to chronic renal failure. Hemoglobin is at goal and no intervention is needed at present.
[2018-08-06 14:00] VITALS: BP 126/63
[2018-08-06 18:00] VITALS: BP 136/62
[2018-08-06] MEDS: ATORVASTATIN 20 MG TAB PO SCH (20:11)
[2018-08-06] MEDS: SERTRALINE HCL 25 MG TABLET PO SCH (20:11)
[2018-08-06] MEDS: GABAPENTIN 300 MG CAP PO SCH (20:11)
[2018-08-06] MEDS: rOPINIRole 0.25 MG TAB(REQUIP) PO SCH (20:11)
[2018-08-06] MEDS: HEPARIN SOD (PORCINE) 5000 UNITS/ML VIAL SQ SCH (20:12)
[2018-08-06 22:00] VITALS: BP 122/64
[2018-08-07] VITALS (9 sets, daily range): BP systolic 99–128; BP diastolic 55–82
--- NOTE | 2018-08-07 08:38 | REP ---
Clinical: Effusion. Technique: PA and lateral. Comparison: 08/05/2018. Findings: [id number] right pleural effusion along with small left pleural effusion appear increased from prior examination. Underlying lower lobe infiltrate/atelectasis (right greater than left) suspected. No pneumothorax. Mediastinum and cardiac silhouette are stable. Skeletal structures are intact. Impression: Bilateral pleural effusions (right greater than left) increased from prior examination. Electronically Signed by Stevan Bradley MD 08/07/2018 08:28 A
--- NOTE | 2018-08-07 08:43 | IPNPDOC ---
Text Note Date of Service The patient was seen on 08/06/18. NOTE S: patient being seen for fluid overload state, DM and ESRD This AM recieved dialysis for esrd and removed additional 3 liter today (2 liter yesterday). Thoracentesis held due to dialysis. breathing better. still on oxygen but no DEXTER/SOB. no cough. states he is due for his routine paracentesis tomorrow. patient and have questions about abnormal mole on forearm and abnormal nail growth. states mole on arm present for years, becomes raised hard , crusty, he picks it off and grows back again O: Vitals as below General: pleasant, NAD, AAOx3 HRRR LCTA decreased on right base, no wheeze, no rhonchi; scattered rales present Ext: trace edema SKIN: left hand 3rd finger nail with abnormal lump/growth at base affecting nail growth - unknown duration; left forearm with 6mm raised firm cone like lesion suggestive of basal cell. Advised outpatient biopsy. A/P: (1) ESRD (end stage renal disease) on dialysis with chronic hypotension; tolerated removal of 3 liter today. repeat CXR in AM. next dialysis on saturday. Goal to discharge when no longer requires supplemental oxygen. (2) Fluid overload, unspecified Status: Acute Response to Treatment: Improving (3) Bilateral lower extremity edema Status: Acute (4) Pleural effusion US guided thorocentesis tomorrow 08/07/18 - if CXR warrants. Will also order routine paracentesis (5) Diabetes STABLE diet controlled, without fdc insulin, without hyperglycemia (6) abnormal skin lesion to left forearm - recommended outpatient biopsy by PCP Bayron ROLON, I+O Bayron ROLON I+O Laboratory Tests 08/06/18 10:23 Calcium Level 8.3 L Vital Signs Date Time Temp Pulse Resp B/P (MAP) Pulse Ox O2 Delivery O2 Flow Rate FiO2 08/06/18 18:44 2.0 08/06/18 18:00 98.6 86 19 136/62 (86) 94 08/05/18 14:18 Room Air I&O- Last 24 Hours up to 6 AM 08/06/18 06:00 Intake Total 1060 ml Output Total 2000 ml Balance -940 ml LISSETH ARMSTRONG DO Aug 06, 2018 19:38
[2018-08-07] MEDS: PANTOPRAZOLE 40MG TAB (PROTONIX) PO SCH (09:10)
[2018-08-07] MEDS: FERROUS GLUCONATE 324 MG TAB PO SCH (09:10)
[2018-08-07] MEDS: GABAPENTIN 100 MG CAP PO SCH (09:10)
[2018-08-07] MEDS: HEPARIN SOD (PORCINE) 5000 UNITS/ML VIAL SQ SCH ×2 (09:10→20:22)
[2018-08-07] MEDS: SUCROFERRIC OXYHYDROXIDE 500MG CHEW TAB (VELPHORO) PO SCH ×3 (09:10→17:01)
[2018-08-07] MEDS: FOLIC ACID 1 MG TAB PO SCH (09:10)
[2018-08-07] MEDS: MIDODRINE 5 MG TAB PO SCH ×3 (09:10→17:01)
[2018-08-07] MEDS: DOCUSATE SODIUM 100 MG CAP PO SCH ×2 (09:10→20:23)
--- NOTE | 2018-08-07 16:50 | REP ---
CHEST, TWO VIEWS: Two views of the chest are performed, status post right thoracentesis. There is a pneumothorax at the right lung base with atelectasis of the inferior aspect of the right lung. There is mild residual pleural fluid. Linear opacity is seen inferiorly on the left, unchanged, compatible with focal fibroatelectasis. The heart is enlarged. There is calcification of the thoracic aorta. Multiple sternal wires are present. IMPRESSION: Right basilar pneumothorax, status post right thoracentesis. Dr. Abarca is consulted. Electronically Signed by Hector De La Rosa MD 08/11/2018 04:58 P
--- NOTE | 2018-08-07 16:59 | ECGEPIP ---
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 Nonspecific ST/T-wave abnormalities. No significant change from 08/05/18 Electronically Signed on 08-07-2018 16:58:35 EDT by Tulio Cisneros
[2018-08-07] MEDS: ATORVASTATIN 20 MG TAB PO SCH (20:22)
[2018-08-07] MEDS: GABAPENTIN 300 MG CAP PO SCH (20:22)
[2018-08-07] MEDS: SERTRALINE HCL 25 MG TABLET PO SCH (20:23)
[2018-08-07] MEDS: rOPINIRole 0.25 MG TAB(REQUIP) PO SCH (20:23)
[2018-08-08 06:00] VITALS: BP 126/76
[2018-08-08 06:06] LABS: HEMOGLOBIN 11.3 g/dl (13.5-17.5); MEAN CORPUSCULAR HEMOGLOBIN 30.1 pg (27.0-33.0); MEAN CORPUSCULAR VOLUME 103.7 fl (80.0-96.0); PLATELET COUNT, AUTOMATED 201 10^3/uL (150-450); RED BLOOD COUNT 3.76 10^6/uL (4.30-6.10)
[2018-08-08 06:27] LABS: CREATININE FOR GFR 4.83 MG/DL (0.70-1.30); GLOMERULAR FILTRATION RATE 12.9 (>49)
[2018-08-08] MEDS: MIDODRINE 5 MG TAB PO SCH ×3 (06:32→15:52)
[2018-08-08] MEDS: DOCUSATE SODIUM 100 MG CAP PO SCH ×2 (06:33→20:39)
[2018-08-08] MEDS: GABAPENTIN 100 MG CAP PO SCH (06:33)
[2018-08-08] MEDS: FOLIC ACID 1 MG TAB PO SCH (06:34)
[2018-08-08] MEDS: HEPARIN SOD (PORCINE) 5000 UNITS/ML VIAL SQ SCH ×2 (06:34→20:38)
[2018-08-08] MEDS: FERROUS GLUCONATE 324 MG TAB PO SCH (06:34)
[2018-08-08] MEDS: PANTOPRAZOLE 40MG TAB (PROTONIX) PO SCH (06:34)
--- NOTE | 2018-08-08 07:16 | IPN ---
DATE OF SERVICE: 08/07/2018 SUBJECTIVE: Александр is seen and examined this morning at the bedside. He is pending thoracentesis later today. He remains on supplemental oxygen. He tolerated dialysis well yesterday without any issues with 3 liters of fluid removed. Vital Signs: Temperature 96.4, pulse 91, respiratory rate 17, blood pressure 117/58, saturating 95% on 1 liter nasal cannula. Intake yesterday was 840, dialysis yesterday removed 3 liters, weight in the bed scale today is not recorded. General: The patient is seen sitting upright at the edge of the bed with legs dangling. Awake, alert and oriented, comfortable, in no apparent distress. Extraocular muscles are intact. Tongue is moist. Neck is supple. Jugular veins are elevated. Cardiac: S1 and S2. There is 2+ edema in the lower extremities that extends all the way up to the hip, thigh and dependent area. Respiratory: There are diminished breath sounds at both bases, but more so diminished on the right. He is on nasal cannula. There is no tachypnea nor accessory muscle use. Abdomen is soft. There is ascitic fluid present. There is no tense ascites. Extremities show chronic leg edema which goes all the way up to the hip and thigh. Left arm fistula is patent. Neurologic: He is oriented times three, interactive and conversational. LABORATORY DATA: White count 8.3, sodium 136, potassium 4.1. IMAGING STUDIES: Thoracentesis ultrasound is pending. INPATIENT MEDICATIONS: Reviewed by myself and no change from prior. PROBLEMS: 1. End-stage renal disease on hemodialysis on Saturday, Saturday, Saturday schedule in this patient was is notoriously and chronically noncompliant with both fluid restriction and potassium restriction and who is chronically volume overloaded and has large interdialytic fluid gains. He came again with fluid overload. He was dialyzed Saturday, Saturday and Saturday in a row. Next dialysis will be on Saturday. He usually does not tolerate more than 3 liters of fluid removal with each hemodialysis treatment due to his chronic hypotension related to severe right heart failure. 2. Severe right heart failure with chronic hypotension. Continue midodrine 10 mg three times a day. Continue fluid restriction. He received an extra dialysis treatment on Saturday and will be dialyzed next on Saturday. Prognosis is poor given right heart failure, dialysis dependent and generalized noncompliance. He has previously been evaluated by advanced heart failure therapies at [facility] and was felt to be a poor candidate for right ventricular assist device (RVAD)/heart transplant. 3. Pleural effusion requiring supplemental oxygen. He is pending thoracentesis later today arranged for by the primary team. 4. Anemia related to chronic renal failure, hemoglobin is at goal and no intervention is needed at present.
[2018-08-08] MEDS: SUCROFERRIC OXYHYDROXIDE 500MG CHEW TAB (VELPHORO) PO SCH ×3 (07:51→17:26)
--- NOTE | 2018-08-08 09:05 | REP ---
Ultrasound-guided paracentesis The procedure was performed under the direct supervision of Dr. De La Rosa. The risks and benefits of the procedure were explained to the patient and informed consent was obtained. The largest pocket of fluid was localized in the left flank using ultrasound guidance. The skin was prepped and draped in a sterile fashion. 1% lidocaine was used as a local anesthetic. An 8-Mongolian multi side-hole catheter was inserted using trocar technique. 4550 ml of cloudy [place] fluid was withdrawn and discarded. The patient tolerated the procedure well and there were no immediate complications. After the appropriate amount of monitored convalescence the patient was discharged from the department. Reviewed by RIVERA Gaona 08/07/2018 04:05 P Electronically Signed by Hector De La Rosa MD 08/08/2018 08:56 A
--- NOTE | 2018-08-08 09:05 | REP ---
ULTRASOUND-GUIDED RIGHT THORACENTESIS The procedure was performed under the direct supervision of Dr. de la rosa. The risks and benefits of the procedure were explained to the patient and informed consent was obtained. The right pleural effusion was localized using ultrasound guidance. The skin was prepped and draped in a sterile fashion. 1% lidocaine was used as a local anesthetic. An 8-Spanish multi side-hole catheter was inserted using trocar technique. 775 ml of shaista colored fluid was withdrawn and discarded. The patient tolerated the procedure well and there were no immediate complications. After the appropriate amount of monitored convalescence the patient was discharged from the department. Reviewed by RIVERA Gaona 08/07/2018 04:06 P Electronically Signed by Hector De La Rosa MD 08/08/2018 08:56 A
[2018-08-08] MEDS ORDERED: LIDOCAINE 1% SDV 5 ML VIAL SQ ONE (12:45)
[2018-08-08] MEDS ORDERED: HEPARIN 1,000 UNITS/ML 10ML VIAL (FOR RADIOLOGY& DIALYSIS ONLY) IV ONE (12:45)
--- NOTE | 2018-08-08 13:17 | IPNPDOC ---
Text Note Date of Service The patient was seen on 08/07/18. NOTE S: patient requiring 1 liter NC to maintain sat. Has had dialysis x 2 days with total 5 liter removed. Plans for thoracentesis and paracentesis today. Patient states feels better, weak at times but has ambulated in room O: Vitals as below General: pleasant, NAD, AAOx3 LCTA decreased on right base, no wheeze, no rhonchi; scattered rales present Ext: trace edema A/P (1) ESRD (end stage renal disease) on dialysis with chronic hypotension; next dialysis on saturday. Goal to discharge when no longer requires supplemental oxygen. (2) Fluid overload, unspecified Status: Acute Response to Treatment: Improving (3) Bilateral lower extremity edema Status: Acute due to fluid overload - improving (4) Pleural effusion US guided thorocentesis and paracentesis planned today 08/07/18 (5) Diabetes STABLE diet controlled, without long-term insulin, without hyperglycemia Disposition: possible d/c tomorrow after dialysis if patient no longer requires supplemental oxygen. VS,Fishbone, I+O VS, Fishbone, I+O Laboratory Tests 08/06/18 10:23 Calcium Level 8.3 L Vital Signs Date Time Temp Pulse Resp B/P (MAP) Pulse Ox O2 Delivery O2 Flow Rate FiO2 08/07/18 06:00 97.6 82 16 99/58 (72) 94 2.0 08/05/18 14:18 Room Air I&O- Last 24 Hours up to 6 AM 08/07/18 06:00 Intake Total 560 ml Output Total 3600 ml Balance -3040 ml LISSETH ARMSTRONG DO Aug 07, 2018 08:46
[2018-08-08 14:05] VITALS: BP 121/71
--- NOTE | 2018-08-08 18:12 | IPNPDOC ---
Text Note Date of Service The patient was seen on 08/08/18. NOTE S; pateint states feels better. SOB when ambulating to bathroom 15 feet. Ox Sat 83% on RA with ambulating per nursing staff. patient had thorcentesis done yesterday with resulting small pneumothorax (not notified). He states no CP. no N, no V. , daughter in room. patient had dialysis earlier today. O:Vitals as below General: pleasant, NAD , AAOx3, speaking prolonged sentences. Currently on 2 liter NC HRRR LCTA with good aeration bilaterally Ext trace edema A/P: (1) ESRD (end stage renal disease) on dialysis with chronic hypotension. Continue fluid restriction. Goal to discharge when no longer requires supplemental oxygen. check nocturnal oximetry and if still requires supplemental oxygen - then will arrange for home oxygen use. (2) Fluid overload, unspecified Status: Acute Response to Treatment: Improving (3) Bilateral lower extremity edema Status: Acute due to fluid overload - improving (4) Pleural effusion US guided thorocentesis and paracentesis on 08/07/18 with resulting small pneumothorax. documentation states Dr Abarca consulted. (5) pneumothorax - after US guided paracentesis on 08/07/18 Repeat CXR today and if still present - determine further treatment plan. (5) Diabetes STABLE diet controlled, without long term insulin, without hyperglycemia Disposition: if PNTX resolved, possible home tomorrow with or without oxygen supplemental VS,Fishbone, I+O VS, Fishbone, I+O Laboratory Tests 08/08/18 05:19 Red Blood Count 3.76 L, Mean Corpuscular Volume 103.7 H, Mean Corpuscular Hemoglobin 30.1, Mean Corpuscular Hemoglobin Concent 29.0 L, Red Cell Distribution Width 16.0 H, Calcium Level 9.0 Vital Signs Date Time Temp Pulse Resp B/P (MAP) Pulse Ox O2 Delivery O2 Flow Rate FiO2 08/08/18 14:05 97.7 103 18 121/71 (88) 93 1.0 08/05/18 14:18 Room Air I&O- Last 24 Hours up to 6 AM 08/08/18 06:00 Intake Total 1050 ml Balance 1050 ml LISSETH ARMSTRONG DO Aug 08, 2018 18:12
--- NOTE | 2018-08-08 18:44 | REP ---
Chest two views HISTORY: Pneumothorax Comparison: 03:57 p.m. 08/07/2018 Parenchymal density is present in the right lower lobe consistent with atelectasis that is increased compared to the previous study. . A hydro pneumothorax is present on the right. The pleural fluid is increased compared to the previous study. Linear density is present in the left lower lobe consistent with atelectasis or scar. There is blunting of the left costophrenic angle due to a small pleural effusion. The heart is normal in size. The pulmonary vasculature is normal in appearance. The bony structure is intact. IMPRESSION: 1. Right lower lobe atelectasis increased compared to the previous study. 2. Right hydropneumothorax with increased pleural fluid compared to the previous study. 3. Left lower lobe atelectasis or scar. 4. Small left pleural effusion. Electronically Signed by Juan Gonzalez MD 08/08/2018 06:35 P
[2018-08-08] MEDS: GABAPENTIN 300 MG CAP PO SCH (20:38)
[2018-08-08] MEDS: SERTRALINE HCL 25 MG TABLET PO SCH (20:38)
[2018-08-08] MEDS: ATORVASTATIN 20 MG TAB PO SCH (20:39)
[2018-08-08] MEDS: rOPINIRole 0.25 MG TAB(REQUIP) PO SCH (20:39)
[2018-08-08 22:00] VITALS: BP 141/91
[2018-08-09 06:00] VITALS: BP 126/68
[2018-08-09] MEDS: GABAPENTIN 100 MG CAP PO SCH (08:41)
[2018-08-09] MEDS: MIDODRINE 5 MG TAB PO SCH ×3 (08:41→16:05)
[2018-08-09] MEDS: SUCROFERRIC OXYHYDROXIDE 500MG CHEW TAB (VELPHORO) PO SCH ×3 (08:41→17:49)
[2018-08-09] MEDS: HEPARIN SOD (PORCINE) 5000 UNITS/ML VIAL SQ SCH ×2 (08:41→20:57)
[2018-08-09] MEDS: FERROUS GLUCONATE 324 MG TAB PO SCH (08:41)
[2018-08-09] MEDS: PANTOPRAZOLE 40MG TAB (PROTONIX) PO SCH (08:41)
[2018-08-09] MEDS: DOCUSATE SODIUM 100 MG CAP PO SCH ×2 (08:41→20:56)
[2018-08-09] MEDS: FOLIC ACID 1 MG TAB PO SCH (08:41)
[2018-08-09] MEDS ORDERED: LIDOCAINE 1% SDV 5 ML VIAL SQ ONE (10:00)
[2018-08-09] MEDS ORDERED: HEPARIN 1,000 UNITS/ML 10ML VIAL (FOR RADIOLOGY& DIALYSIS ONLY) IV ONE (10:00)
--- NOTE | 2018-08-09 11:26 | IPN ---
DATE OF SERVICE: 08/08/2018 SUBJECTIVE: The patient is seen and examined this morning in the hemodialysis unit receiving his treatment. He had a thoracentesis yesterday with 775 mL of fluid removed and a paracentesis yesterday with 4.5 liters of fluid removed. He still remains on a small dose of supplemental oxygen. He denies any new complaints. Vital signs: Temperature 97.7, pulse is 69, respiratory rate 18, blood pressure 126/76, saturating 91% on 1 liter nasal cannula. Dialysis goal removal today is 2.2 liters. General: The patient is seen in the dialysis unit receiving his treatment. Awake, alert, oriented, comfortable, in no apparent distress. Extraocular muscles are intact. Tongue is moist. Neck is supple. Jugular veins are elevated. Cardiac: S1, S2. There is 2+ edema in the lower extremities that extends all the way up to the hip, thigh, and dependent area. Respiratory: There are diminished breath sounds both lung bases, but it is overall improved. He is on nasal cannula. There is no tachypnea nor accessory muscle use. Abdomen is soft. There is less ascitic fluid present. Extremities show chronic leg edema. The left arm fistula is presently in use. Neurologic: Oriented times three, interactive, and conversational. LABORATORIES: White count 8.0, hemoglobin 11.3. Sodium 133, potassium 5.0. Chest x-ray 08/08/2018: Right hydropneumothorax. INPATIENT MEDICATIONS: Reviewed by me, and there is no change from prior. PROBLEMS: 1. End-stage renal disease, on hemodialysis on Saturday, Saturday, Saturday schedule in this patient who is notoriously and chronically noncompliant with both fluid restriction and potassium restriction and who is chronically volume overloaded and has large interdialytic fluid gain. He came again with fluid overload. He was dialyzed Saturday, Saturday, and Saturday. On , he had a paracentesis and a thoracentesis. The thoracentesis was complicated by pneumothorax. He is dialyzed today. We removed around 2 liters. If he remains inpatient tomorrow, we will plan to take him for an ultrafiltration session. He usually does not tolerate more than 3 liters of fluid removal with each hemodialysis treatment due to chronic hypotension related to severe right heart failure. 2. Severe right heart failure with chronic hypotension. Continue midodrine 10 mg by mouth three times a day. Continue fluid restriction. He received an extra dialysis treatment on Saturday, and we will plan for an additional ultrafiltration on Saturday if he remains in-house. Prognosis is poor given right heart failure, dialysis dependence, and generalized noncompliance. 3. Pleural effusion requiring supplemental oxygen, status post thoracentesis yesterday, complicated by pneumothorax. Defer to primary team. Overall supplemental oxygen requirements are weaned but not yet discontinued. 4. Anemia related to chronic renal failure. Hemoglobin is at goal, and no intervention is needed at present.
[2018-08-09 14:00] VITALS: BP 112/62
--- NOTE | 2018-08-09 15:24 | IPNPDOC ---
Text Note Date of Service The patient was seen on 08/09/18. NOTE S: patient returned from dialysis. states no SOB, no DEXTER, no CP or palpitations O:Vitals as below General: pleasant, NAD , AAOx3, Currently on 3 liter NC AMBULATORY OX SAT STUDY = 85% on RA, 92% on 3 liter HRRR LCTA with diminished breath sounds right Ext 1+ edema Intake & Output Label Value Date Time Total Out 2500 ml 08/09/18 0000(24 hrs) Total Out 2200 ml 08/08/18 0000(24 hrs) Total Out 500 ml 08/07/18 0000(24 hrs) Total In 270 ml 08/09/18 0000(24 hrs) Total In 580 ml 08/08/18 0000(24 hrs) Total In 1050 ml 08/07/18 0000(24 hrs) Item Value Date Time Patient Weight 90.3 kg 08/09/18 0600 Patient Weight 95.2 kg 08/05/18 2200 A/P: (1) ESRD (end stage renal disease) on dialysis with chronic hypotension. Continue fluid restriction (not accuate as family bringing in beverages from outside) check nocturnal oximetry and if still requires supplemental oxygen - then will arrange for home oxygen use. Discharge planned for tomorrow after 1pm (2) Fluid overload, unspecified Status: Acute Response to Treatment: Improving Dialysis planned for saturday as outpatient. fluid restriction 1000cc/24 h (3) Bilateral lower extremity edema Status: Acute due to fluid overload - improving (4) Pleural effusion US guided thorocentesis and paracentesis on 08/07/18 with resulting small pneumothorax. documentation states Dr Abarca consulted. (5) pneumothorax - after US guided paracentesis on 08/07/18 Repeat CXR yesterday suggested worsening with hydropneumothorax. Spoke with Dr Abarca and reviewed films and case with Dr Abarca in detail last night - not worsening. states lungs right lateral scarred and not expanding due to scaring. states fluid reac cumulated and does not recommend further therapeutic thoracentesis because further lung collapse and hydropneumothorax could increase lateral/superiorly causing further respiratory problems and need for pluredex. No further thoracentesis. Will check CXR in AM. He will require home oxygen therapy. noctural oximetry ordered for tonight (not performed yesterday). (5) Diabetes STABLE diet controlled, without penitentiary insulin, without hyperglycemia Disposition: discharge home saturday after 1pm (24 hours after last dialysis per hospital protocol). VS,Fishbone, I+O VS, Fishbone, I+O Vital Signs Date Time Temp Pulse Resp B/P (MAP) Pulse Ox O2 Delivery O2 Flow Rate FiO2 08/09/18 14:00 96.9 91 19 112/62 (79) 95 2.0 08/05/18 14:18 Room Air I&O- Last 24 Hours up to 6 AM 08/09/18 06:00 Intake Total 580 ml Output Total 2200 ml Balance -1620 ml LISSETH ARMSTRONG DO Aug 09, 2018 15:24
--- NOTE | 2018-08-09 17:05 | IPN ---
DATE: 08/09/2018 Mr. Humphrey is seen this morning on his bedside. We decided to ultrafiltrate him due to chronic hypervolemia and he is seen in dialysis this morning. He has significant ascites and peripheral edema. He recently had a paracentesis done and also thoracentesis. However, both his ascites and pleural effusion reaccumulate very quickly. He has a history of chronic noncompliance with fluid restriction and also a history of cirrhosis of liver and biventricular congestive heart failure. Unfortunately, he has been unable to follow instructions despite multiple sessions of counseling regarding his salt and fluid restriction needs. He was admitted with shortness of breath and we have dialyzed him and ultrafiltrated him frequently with significant improvement in his volume status. We decided to ultrafiltrate him again today for about three liters of fluid removal. He does have history of hypotension during dialysis and does not tolerate too aggressive fluid removal. PHYSICAL EXAMINATION: Temperature 98.2 degrees Fahrenheit, heart rate 88 per minute and respiratory rate 18 per minute. Blood pressure 126/68 mmHg at the start of dialysis and it is already down to about 100/60 mmHg within a few minutes of starting dialysis. His head is atraumatic. Neck is supple and jugular venous distention (JVD) is markedly elevated. There is no oral thrush or ulcers. Heart sounds are irregular in rhythm. There is no pericardial friction rub. Lungs have diminished breath sounds at lower half bilaterally. Abdomen is markedly distended with large amount of ascites and it is nontender. Bowel sounds are present. Extremities have no cyanosis or clubbing. Lower extremity edema is at least 3+. Neurologically, he is awake and without a focal deficit. PROBLEMS: 1. End-stage renal disease. The patient was dialyzed yesterday and his regular dialysis will be scheduled for Saturday. 2. Hypervolemia with congestive heart failure. His volume status remains decompensated. He has severe right-sided heart failure with chronic hypotension and left heart failure. We are trying to remove about three liters of fluid today and see how he tolerates. He needs to follow fluid restriction very carefully. However, he has been unwilling to follow instructions. 3. Recurrent ascites with cirrhosis of liver. The patient did have a paracentesis done and will continue with outpatient intermittent paracentesis every couple of weeks. 4. Pleural effusion. Related to right-sided heart failure, end-stage renal disease and noncompliance with fluid restriction. The patient has been seen by thoracic surgery and at this point no further intervention has been recommended. We will continue to maintain his volume status as good as possible. He needs to improve his compliance with diet and fluid restriction. DISPOSITION: From a renal standpoint, the patient can be discharged to home with possible oxygen supplement as he has been unable to come off the oxygen. His long-term prognosis remains poor.
[2018-08-09] MEDS: ATORVASTATIN 20 MG TAB PO SCH (20:57)
[2018-08-09] MEDS: rOPINIRole 0.25 MG TAB(REQUIP) PO SCH (20:57)
[2018-08-09] MEDS: SERTRALINE HCL 25 MG TABLET PO SCH (20:57)
[2018-08-09] MEDS: GABAPENTIN 300 MG CAP PO SCH (20:58)
[2018-08-09 22:00] VITALS: BP 117/76
[2018-08-10 06:00] VITALS: BP 120/73
--- NOTE | 2018-08-10 08:31 | REP ---
Chest two views HISTORY: Pleural effusion Comparison: 08/08/2018 Parenchymal density is present in the right lower lobe consistent with atelectasis that is increased compared to the previous study. Two hydropneumothoraces are present on the right. The pleural fluid is slightly increased compared to the previous study. Linear density is present at the left lower lobe consistent with atelectasis or scar. A small left pleural effusion is present that is decreased in size compared to the previous study. The heart is normal in size. The pulmonary vasculature is normal in appearance. The bony structure is intact. IMPRESSION: 1. Right lower lobe atelectasis increased compared to the previous study. 2. Right hydropneumothoraces with increased pleural fluid compared to the previous study. 3. Left lower lobe atelectasis or scar. 4. Small left pleural effusion decreased compared to the previous study. Electronically Signed by Juan Gonzalez MD 08/10/2018 08:22 A
[2018-08-10] MEDS: HEPARIN SOD (PORCINE) 5000 UNITS/ML VIAL SQ SCH (08:45)
[2018-08-10] MEDS: FERROUS GLUCONATE 324 MG TAB PO SCH (08:46)
[2018-08-10] MEDS: GABAPENTIN 100 MG CAP PO SCH (08:46)
[2018-08-10] MEDS: DOCUSATE SODIUM 100 MG CAP PO SCH (08:46)
[2018-08-10] MEDS: SUCROFERRIC OXYHYDROXIDE 500MG CHEW TAB (VELPHORO) PO SCH ×3 (08:46→17:59)
[2018-08-10] MEDS: MIDODRINE 5 MG TAB PO SCH ×3 (08:46→16:18)
[2018-08-10] MEDS: FOLIC ACID 1 MG TAB PO SCH (08:46)
[2018-08-10] MEDS: PANTOPRAZOLE 40MG TAB (PROTONIX) PO SCH (08:46)
--- NOTE | 2018-08-10 09:39 | REP ---
Chest two views HISTORY: Pneumothorax Comparison: 07:45 a.m. 08/10/2018 Parenchymal density is present in the right lower lobe consistent with atelectasis unchanged compared to the previous study. Two hydro pneumothoraces are present. The posterior hydropneumothorax is increased compared to the previous study. The anterior hydropneumothorax is unchanged. Linear density is present in the left lower lobe consistent with atelectasis or scar. A small left pleural effusion is present unchanged compared to the previous study. The heart is normal in size. The pulmonary vasculature is normal in appearance. The bony structure is intact. IMPRESSION: 1. Right lower lobe atelectasis unchanged compared to the previous study. 2. Right hydropneumothoraces. The posterior hydropneumothorax is increased compared to the previous study. The anterior hydropneumothorax is unchanged. 3. Left lower lobe atelectasis or scar. 4. Small left pleural effusion unchanged compared to the previous study. Electronically Signed by Juan Gonzalez MD 08/10/2018 09:30 A
[2018-08-10 14:00] VITALS: BP 118/78
--- NOTE | 2018-08-10 14:29 | DS.PDOC ---
Discharge Summary General Date of Admission Aug 05, 2018 at 13:39 Date of Discharge 08/10/18 Primary Care Physician: GIO GENTILE DO Attending Physician: LISSETH ARMSTRONG DO Specialist/Consultants Involve: ОЛЬГА ADAMES DO Discharge Summary PROCEDURES PERFORMED DURING STAY: dialysis 08/05,08/06,08/08,08/09 Paracentesis 08/07/18 thoracentesis 08/07/18 ADMITTING DIAGNOSES: 1. ESRD 2. Fluid overload with leg edema 3. pleural effusion 4. Diabetes DISCHARGE DIAGNOSES: 1. chronic hypoxic respiratory failure 2. acute on chronic CHF diastolic 3. chronic pleural effusion 4. diabetes 5. ESRD 6. ascites due to ESRD COMPLICATIONS/CHIEF COMPLAINT: CHF. HISTORY OF PRESENT ILLNESS: 67yo male with ESRD on dialysis M,W,F states felt "weak" after mondays dialysis and given 1 liter NS fluid. States felt better and went out of lunch. As evening progressed, he felt weaker and unable to sleep at night because of SOB and feeling like someone was pumping "ice water thru my veins". States at 0300 got up, used walker and went to bathroom and had lighthead, blurry vision and brief syncope episode lasting seconds. heard him fall, he was able to get up again with no injury to left side. states syncope usually occurs 1-2 x month after dialysis and states is from his low blood pressure. He went to PCP office today for routine follow up (not because of syncope) who sent him to ED for further evaluation of syncope. In the ED he was found to be mildy hypoxic (89% on RA), short of breath and in fluid overload state with worsening right pleural effusion. HOSPITAL COURSE: patient admitted and placed on oxygen. he was dialysized frequently during hospitalization with improvement of his dyspnea but NOT of his hypoxia. He has had a chronic pleural effusion since his LA in 01/2017 and thoracentesis performed in order to help oxygenation. Thoracentesis did not improve his oxygenation and he had small pneumo thorax. Case discussed with cardiothoracic surgeon and no chest tube needed. He advised against repeat thoracentesis as area immediately refilled with fluid along right area of chronic lung scarring. His lung disease and chronic pleural effusion are in a CHRONIC AND STABLE STATE. He had ambulatory and resting oximetry testing showing Ox Sat RA rest 85%, with ambulating 83%, He required 2 liter NC to recover to 93%. Patient has usual q1week paracentesis, and this was performed during hospitalization. DISCHARGE MEDICATIONS: Please see below. ALLERGIES: Please see below. PHYSICAL EXAMINATION ON DISCHARGE: VITAL SIGNS: Please see below. General: pleasant, NAD , AAOx3, er HRRR LCTA with diminished breath sounds right Ext 1+ edema LABORATORY DATA: Please see below. IMAGING: CXR consistent with pleural effusion PROGNOSIS: fair ACTIVITY: as tolerated DIET: low salt with 1000cc fluid restriction DISCHARGE PLAN: home w home health DISCHARGE INSTRUCTIONS: 1. Follow up with dialysis tomorrow 2. follow up with PCP in 5-7 days to recheck lungs , consider pulm rehab 3. follow up next week as previously scheduled for paracentesis DISCHARGE CONDITION: chronic and stable condition TIME SPENT ON DISCHARGE: 35 minutes. Vital Signs/I&Os Vital Signs Date Time Temp Pulse Resp B/P (MAP) Pulse Ox O2 Delivery O2 Flow Rate FiO2 08/10/18 09:35 93 2.0 08/10/18 06:00 98.7 90 18 120/73 (89) 08/10/18 02:23 Nasal Cannula I&O- Last 24 Hours up to 6 AM 08/10/18 06:00 Intake Total 450 ml Output Total 2500 ml Balance -2050 ml Laboratory Data Labs 24H Intake & Output Label Value Date Time Total Out 2500 ml 08/09/18 0000(24 hrs) Total Out 2500 ml 08/09/18 0000(24 hrs) Total Out 2200 ml 08/08/18 0000(24 hrs) Total Out 2200 ml 08/08/18 0000(24 hrs) Total Out 500 ml /08/20 0000(24 hrs) Total Out 500 ml /08/20 0000(24 hrs) Total In 270 ml /10/20 0000(24 hrs) Total In 270 ml /10/20 0000(24 hrs) Total In 580 ml 08/08/18 0000(24 hrs) Total In 580 ml 08/08/18 0000(24 hrs) Total In 1050 ml /08/20 0000(24 hrs) Total In 1050 ml /08/20 0000(24 hrs) Item Value Date Time Patient Weight 90.3 kg 08/09/18 0600 Patient Weight 95.2 kg 08/05/18 2200 White Blood Count 8.0 10^3/uL 08/08/18 0519 Hemoglobin 11.3 g/dl L 08/08/18 0519 Hematocrit 39.0 % L 08/08/18 0519 Platelet Count 201 10^3/uL 08/08/18 0519 Mean Corpuscular Hemoglobin Concent 29.6 g/dl L 08/05/18 1038 White Blood Count 8.3 10^3/uL 08/05/18 1038 Hemoglobin 11.0 g/dl L 08/05/18 1038 Hematocrit 37.1 % L 08/05/18 1038 Discharge Medications Scheduled Atorvastatin Calcium (Lipitor) 20 Mg Tab, 20 MG PO QHS, (Reported) Docusate Sodium (Colace) 100 Mg Cap, 100 MG PO DAILY, (Reported) Ergocalciferol (Vitamin D2) (Drisdol) 50,000 Unit Capsule, 50,000 UNIT PO 1XWK, (Reported) SUNDAYS Ferrous Gluconate (Ferrous Gluconate) 324 Mg Tab, 324 MG PO DAILY, (Reported) Folic Acid (Folic Acid) 1 Mg Tab, 1 MG PO DAILY, (Reported) Gabapentin (Gabapentin) 100 Mg Cap, 100 MG PO QAM, (Reported) Gabapentin (Gabapentin) 100 Mg Cap, 300 MG PO QHS, (Reported) Midodrine HCl (Midodrine HCl) 10 Mg Tab, 10 MG PO TID, (Reported) Pantoprazole Sodium (Protonix) 40 Mg Tab, 40 MG PO DAILY, (Reported) Patiromer Calcium Sorbitex (Veltassa) 8.4 Gm Pow, 8.4 GM PO DAILY, (Reported) Ropinirole HCl (Ropinirole HCl) 0.25 Mg Tablet, 0.25 MG PO QHS, (Reported) Sertraline Hcl (Zoloft) 25 Mg Tab, 50 MG PO QHS, (Reported) Sucroferric Oxyhydroxide (Velphoro) 500 Mg Tab.chew, 500 MG PO TID, (Reported) Scheduled PRN Nystatin (Nystatin Powder) 15 Gm Powder, 1 APLCT TOP BID PRN for RASH/ITCHING, (Reported) apply to affected area(s) Allergies Coded Allergies: No Known Allergies (Unverified , 08/05/18) LISSETH ARMSTRONG DO Aug 10, 2018 14:29
--- NOTE | 2018-08-10 17:11 | IPN ---
DATE: 08/10/2018 Mr. Humphrey is seen this afternoon on his bedside. He is sitting at the edge of bed eating his lunch. His is present in the room. Patient underwent ultrafiltration yesterday and we were able to remove about 2.5 liters of fluid. His weight is down to 89 kg today, while he was up to 95.2 kg on admission. His volume status and respiratory status has improved significantly, though he has recurrent pleural effusions, recurrent ascites and chronic generalized edema. PHYSICAL EXAMINATION: Patient is awake and alert and without any acute distress. Temperature 98.5 degrees Fahrenheit, heart rate 96 per minute and respiratory rate 18 per minute. Blood pressure 118/78 mmHg and oxygen saturation 97% on 2 liters oxygen. His head is atraumatic. Neck is supple and jugular venous distention (JVD) is still elevated. There is no oral thrush or ulcers. Heart sounds are irregular in rhythm. Lungs with diminished breath sounds at right lower 1/3. Abdomen is soft and distended with ascites. Bowel sounds are present. Extremities have no cyanosis or clubbing. Lower extremity edema is still 3+. Neurologically, he is at his baseline mentation without a focal deficit. Patient did not have any new labs done today. PROBLEMS: 1. Decompensated congestive heart failure. Volume status has improved significantly since admission. Patient is known to have biventricular congestive heart failure and end-stage renal disease. He is also noncompliant with fluid restrictions. I have discussed with the patient and his at length again today and advised to follow his fluid restriction as closely as possible. Will try to remove as much fluid as he can tolerate with next dialysis treatment. 2. End-stage renal disease. Patient is regularly dialyzed on Saturday, Saturday and Saturday schedule. Will dialyze him again tomorrow. If he stays here, then he can be dialyzed in the hospital and if he gets discharged, then he will be dialyzed as an outpatient. 3. Hypoxemia. Related to congestive heart failure and recurrent pleural effusion. Patient is likely to require home oxygen. 4. Cirrhosis of liver with recurrent ascites. Patient gets paracentesis done every two weeks and he had a paracentesis done last week. At this point, there is no emergent need for another paracentesis. DISPOSITION: Patient seems to be doing well, however, he is still hypoxic and is likely to require home oxygen. This can probably be arranged tomorrow morning. 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 Otherwise, we will dialyze him here tomorrow.
--- NOTE | 2018-08-11 12:58 | NOCOX ---
DATE OF STUDY: 08/09/2018 INTERPRETATION: Recording nocturnal oximetry was performed on room air. A total of 6 hours and 43 minutes of data was reviewed. Mean oxygen saturation for the study was 92.5% with an oxygen saturation [place] likely in the high 80s. The lower values listed on the report were when the recording first started and likely was secondary to movement. There were two additional short regions of artifact. He spent greater than 96.5% of the night with saturations 89% or greater. The portion that is listed less than 88% for 7 minutes was artifact when the study was first being set up. His longest continuous time period with saturations less than 89% was likely about 5-6 minutes with saturations around 87% early in the evening. There are 1-2% fluctuations in the SpO2 waveform that may be suggestive of sleep disordered breathing. IMPRESSION: 1. Likely technically 5 minutes with saturations equal to or less than 88%, but it was a brief period of time and a vast majority of time was spent with saturations 89% or higher (greater than 96% of the night). 2. 1-2% fluctuations in the baseline SpO2 that may be suggestive of sleep disordered breathing. Clinical correlation will be necessary. BELLA
== END 2018-08-10 18:25 | disposition home health service (06) | DRG 194 ==
LOC: M ED 10:02 → M ED INP 13:39 → M MSPAV 19:00
PROVIDERS: ADMIT Family Medicine; ATTEND Family Medicine
PROC: 5A1D70Z Performance of Urinary Filtration, Intermittent, Less than 6 Hours Per Day (ICD-10-PCS; principal; 2018-08-05)
PROC: 0W9G3ZZ Drainage of Peritoneal Cavity, Percutaneous Approach (ICD-10-PCS; 2018-08-07)
PROC: 0W993ZZ Drainage of Right Pleural Cavity, Percutaneous Approach (ICD-10-PCS; 2018-08-07)
DX: I50.33 Acute on chronic diastolic (congestive) heart failure (principal); J96.11 Chronic respiratory failure with hypoxia; J91.8 Pleural effusion in other conditions classified elsewhere; N18.6 End stage renal disease; I95.3 Hypotension of hemodialysis; N25.81 Secondary hyperparathyroidism of renal origin; E11.22 Type 2 diabetes mellitus with diabetic chronic kidney disease; E11.40 Type 2 diabetes mellitus with diabetic neuropathy, unspecified; E87.5 Hyperkalemia; I50.810 Right heart failure, unspecified; K74.60 Unspecified cirrhosis of liver; Z79.899 Other long term (current) drug therapy; E87.70 Fluid overload, unspecified; J95.811 Postprocedural pneumothorax; E78.5 Hyperlipidemia, unspecified; I25.10 Atherosclerotic heart disease of native coronary artery without angina pectoris; I25.2 Old myocardial infarction; D63.1 Anemia in chronic kidney disease; Z99.2 Dependence on renal dialysis; Z91.14 Patient's other noncompliance with medication regimen

== ENCOUNTER 2018-08-13 21:44 | Emergency (ER) | payer BC, MEDICARE ==
[~2018-08-13] VITALS: Ht 180.3 cm; Wt 11.8 kg
[~2018-08-13 21:44] MED LIST changes: -DOCUSATE SODIUM 100 MG CAP PO SCH; +DRIS50003 PO; +NYST1POW9 TOP; -PATIROMER SORBITEX CALCIUM 8.4 GM POWDER PACKET (VELTASSA) PO SCH; +ROPI0.253 PO; +VELP5CHW PO
[2018-08-13 23:00] VITALS: BP 120/71
--- NOTE | 2018-08-14 02:02 | ECGEPIP ---
[facility] - ED Test Date: 2018-08-13 Pat Name: MELODY BUNN Department: Room: - Gender: Male [employer] Hand: WONG : 1950 Requested By: Armen Aguilar Order Number: [id number] Reading MD: Armen Dietrich Measurements Intervals [place] Rate: 102 P: 33 MT: 147 QRS: QRSD: 97 T: QT: 319 QTc: 416 Interpretive Statements SINUS TACHYCARDIA LOW QRS VOLTAGE IN PRECORDIAL LEADS INCOMPLETE RIGHT BUNDLE BRANCH BLOCK INFERIOR MYOCARDIAL INFARCTION, OF INDETERMINATE AGE SIMILAR TO 08/07/18 Electronically Signed on 08-14-2018 2:01:56 EDT by Armen Dietrich
== END 2018-08-13 23:52 | disposition home or self-care (01) ==
LOC: M ED 21:44 → EDBD 21:44 → M ED 23:52
DX: E11.9 Type 2 diabetes mellitus without complications (principal); R53.1 Weakness; R00.0 Tachycardia, unspecified; I45.19 Other right bundle-branch block; I10 Essential (primary) hypertension; N18.9 Chronic kidney disease, unspecified; Z95.1 Presence of aortocoronary bypass graft; Z72.0 Tobacco use

== ENCOUNTER → 2018-08-14 | Outpatient (CLI) | payer BC, MEDICARE ==
[~2018-08-14] MED LIST changes: +ACET0.052 PO; +MELA5TAB7 PO; +ROPI0.5T PO
--- NOTE | 2018-08-15 10:53 | REP ---
Ultrasound-guided paracentesis The procedure was performed by RIVERA Albrecht, under the direct supervision of Dr. Marcus. The risks and benefits of the procedure were explained to the patient and informed consent was obtained both verbally and written. Directly prior to the start of the procedure, a formal timeout was completed in the procedure room. Under ultrasound guidance, the largest pocket of fluid in the left flank was localized and skin was marked. The skin was then prepped and draped in a sterile fashion. 10 ml of 1% lidocaine was used as a local anesthetic. Using ultrasound guidance, an 8-Tongan multi side-hole catheter was inserted using trocar technique. 3,700 mL of cloudy shaista colored fluid was withdrawn and discarded. The patient tolerated the procedure well and there were no immediate complications. After the appropriate monitored convalescence the patient was discharged from the department. Reviewed by RIVERA Padron 08/14/2018 04:35 P Electronically Signed by Jose C Marcus MD 08/15/2018 10:43 A
== END ==
LOC: M RADPRO 14:14
PROVIDERS: ATTEND Internal Medicine Nephrology
DX: R18.8 Other ascites (principal); K74.60 Unspecified cirrhosis of liver; Z99.2 Dependence on renal dialysis

== ENCOUNTER 2018-08-18 18:40 | Inpatient (IN) | payer BC, MEDICARE ==
[~2018-08-18] VITALS: Ht 180.3 cm; Wt 88.9 kg
[~2018-08-18 18:40] MED LIST changes: -ACET0.052 PO; -MELA5TAB7 PO; -ROPI0.5T PO
--- NOTE | 2018-08-18 19:34 | REP ---
Portable chest, 07:04 p.m., single AP view the patient semi upright: Comparison is the PA and lateral chest of 08/10/2089. There is a large right pleural effusion that has increased in size. Suspect there is persisting right hydropneumothorax. There is a small left pleural effusion, unchanged. There is a focal parenchymal density adjacent to the cardiac apex, unchanged. Cardiac size is enlarged. There are sternotomy wires, unchanged. Impression: Increasing right pleural effusion. Probable persisting right hydropneumothorax. Electronically Signed by Hector Helton MD 08/18/2018 07:26 P
[2018-08-18 19:45] LABS: BASO # 0.1 10^3/uL (0.0-0.2); BASO % 0.7 % (0.0-1.0); EOS # 0.2 10^3/uL (0.0-0.50); EOS % 2.3 % (0.0-3.0); HEMATOCRIT 36.3 % (42.0-52.0); HEMOGLOBIN 10.9 g/dl (13.5-17.5); LYMPH # 0.5 10^3/uL (1.5-4.5); MEAN CORPUSCULAR HEMOGLOBIN 30.4 pg (27.0-33.0); MEAN CORPUSCULAR VOLUME 101.4 fl (80.0-96.0); MONO % 13.7 % (0.0-5.0); NEUTROPHILS # 5.5 10^3/uL (1.8-7.7); NEUTROPHILS % 73.3 % (36.0-66.0); PLATELET COUNT, AUTOMATED 205 10^3/uL (150-450); RED BLOOD COUNT 3.58 10^6/uL (4.30-6.10); WHITE BLOOD COUNT 7.5 10^3/uL (4.0-10.0)
[2018-08-18 19:46] LABS: VENOUS BASE EXCESS 1.6 (-2.0-2.0); VENOUS HCO3 29.8 MEQ/L (23.0-27.0); VENOUS O2 SATURATION 91.7 % (60.0-80.0); VENOUS PARTIAL PRESSURE CO2 65.4 mmHg (38.0-50.0); VENOUS PARTIAL PRESSURE O2 67.9 mmHg (30.0-50.0); VENOUS PH 7.276 UNITS (7.330-7.430); VENOUS STANDARD HCO3 25.7 MEQ/L; VENOUS TOTAL CO2 31.8 MEQ/L (24.0-28.0)
[2018-08-18] MEDS ORDERED: ONDANSETRON 4MG/2ML VIAL (J2405) IV ONE (20:00)
[2018-08-18] MEDS ORDERED: MORPHINE 4 MG/ML 1ML VIAL/SYRINGE (J2270) IV PRN (20:00)
--- NOTE | 2018-08-18 20:20 | REPVR ---
EXAM: CT Head Without Contrast EXAM DATE/TIME: 08/18/2018 7:09 PM CLINICAL HISTORY: 67 years old, male; Signs and symptoms; Altered mental status/memory loss TECHNIQUE: Imaging protocol: Axial computed tomography images of the head without contrast. Radiation optimization: All CT scans at this facility use at least one of these dose optimization techniques: automated exposure control; mA and/or kV adjustment per patient size (includes targeted exams where dose is matched to clinical indication); or iterative reconstruction. COMPARISON: CT Head without contrast 01/17/2017 5:33 PM FINDINGS: Brain: The brain demonstrates diffuse volume loss. No visible evolving territorial infarct. No hemorrhage. Small hypodensities in the left ibrahim radiata probably reflecting chronic small vessel ischemic change. Ventricles: Stable. No significant ventriculomegaly. Bones/joints: No acute fracture seen. Sinuses: Trace mucosal thickening in the dependent right maxillary sinus. No air-fluid levels. Mastoid air cells: No significant mastoid effusions. Soft tissues: Unremarkable. IMPRESSION: No acute intracranial abnormality seen. Electronically signed by: Ebony Nix On 08/18/2018 20:20:17 PM
--- NOTE | 2018-08-18 20:48 | REPVR ---
EXAM: CT Lumbar Spine Without Contrast EXAM DATE/TIME: 08/18/2018 8:07 PM CLINICAL HISTORY: 67 years old, male; Low back pain; Additional info: SOB, weakness, back pain TECHNIQUE: Imaging protocol: Axial computed tomography images of the lumbar spine without intravenous contrast. Coronal and sagittal reformatted images were created and reviewed. Radiation optimization: All CT scans at this facility use at least one of these dose optimization techniques: automated exposure control; mA and/or kV adjustment per patient size (includes targeted exams where dose is matched to clinical indication); or iterative reconstruction. COMPARISON: CT abdomen pelvis 09/09/2017. FINDINGS: Vertebrae: The degree of osseous demineralization is advanced for age. Slight dextroconvex scoliosis. Moderate L3 and L4 superior endplate compression deformities have developed since the prior study, likely acute to subacute (the L3 fracture is probably acute, the L4 fracture is probably subacute as there appears to be secondary excavation of the superior endplate by a new Schmorl's node). Slight L3 superior endplate osseous retropulsion does not contribute to central spinal canal stenosis. There is lucency in the mid and anterior aspect of the L3 vertebral body which warrants concern for underlying metastatic disease (area of lucency measures approximately 2.8 cm in AP diameter). Discs/Spinal canal/Neural foramina: No severe central spinal canal stenosis. No high-grade disc loss. Soft tissues: Unremarkable. Kidneys and ureters: The right kidney demonstrates a 2.1 cm cyst. Stomach and bowel: The visualized gastric wall appears thickened. Intraperitoneal space: A moderate amount of low density abdominal ascites, partially characterized. Vasculature: The aorta demonstrates atherosclerosis. IMPRESSION: 1. Moderate L3 and L4 vertebral body superior endplate compression fractures have developed since September of 2017. 2. In particular, L3 superior endplate compression may be acute and pathologic; there is lucency in the mid and anterior aspect of the L3 vertebral body suspicious for underlying metastatic disease. Electronically signed by: Ebony Nix On 08/18/2018 20:48:31 PM
[2018-08-18] MEDS ORDERED: SERTRALINE HCL 25 MG TABLET PO SCH (21:00)
[2018-08-18] MEDS ORDERED: ATORVASTATIN 20 MG TAB PO SCH (21:00)
[2018-08-18] MEDS ORDERED: rOPINIRole 0.25 MG TAB(REQUIP) PO SCH (21:00)
[2018-08-18] MEDS ORDERED: GABAPENTIN 100 MG CAP PO SCH (21:00)
--- NOTE | 2018-08-18 21:01 | REPVR ---
EXAM: CT Chest Without Contrast EXAM DATE/TIME: 08/18/2018 8:07 PM CLINICAL HISTORY: 67 years old, male; Signs and symptoms; Shortness of breath; Additional info: SOB, weakness, back pain TECHNIQUE: Imaging protocol: Axial computed tomography images of the chest without intravenous contrast. Coronal and sagittal reformatted images were created and reviewed. 3D rendering: MIP reconstructed images were created and reviewed. Radiation optimization: All CT scans at this facility use at least one of these dose optimization techniques: automated exposure control; mA and/or kV adjustment per patient size (includes targeted exams where dose is matched to clinical indication); or iterative reconstruction. COMPARISON: CT Chest without contrast 12/02/2017 6:39 PM FINDINGS: Lungs: There is lingular platelike subsegmental atelectasis. Right middle and lower lobe opacities with air bronchograms suspicious for pneumonia, increased since prior. Pleural space: Small to moderate right and small left pleural effusions increased since prior. No pneumothorax. Heart: Moderate cardiomegaly. There are coronary artery and cardiac valvular calcifications. The mediastinum demonstrates post CABG changes. Aorta: Unremarkable for age. No aortic aneurysm. Lymph nodes: A right paratracheal lymph node is mildly enlarged measuring 1.7 x 1.2 cm, similar to the prior study. Bones/joints: The degree of osseous demineralization is advanced for age. Moderate T6 vertebral body central and anterior compression has developed since the prior study. Mild T1 and T8 superior endplate compression fractures are new since prior, as well. Slight T6 inferior endplate retropulsion does not contribute to central spinal canal stenosis. Prior median sternotomy. Chronic appearing anterolateral rib fractures. Soft tissues: There is generalized body wall subcutaneous edema consistent with anasarca. Intraperitoneal space: A moderate amount of low-density abdominal ascites is again seen. IMPRESSION: 1. Moderate right and small left pleural effusions, increased since prior. 2. Suspicious for right middle and lower lobe pneumonia. 3. Age-indeterminate T6 and to a lesser extent T1 and T8 vertebral body fractures have developed since the prior study without significant osseous retropulsion. Electronically signed by: Ebony Nix On 08/18/2018 21:01:47 PM
[2018-08-18 22:10] LABS: ABG BASE EXCESS 1.2 (-2.0-2.0); ABG HCO3 30.8 MEQ/L (22.0-26.0); ABG O2 SATURATION 94.8 % (95.0-99.0); ABG PARTIAL PRESSURE O2 91.3 mmHg (75.0-100.0); ABG STANDARD HCO3 25.5 MEQ/L (22.0-26.0); ABG TOTAL CO2 33.2 MEQ/L (23.0-31.0)
[2018-08-18 22:11] LABS: ABG PARTIAL PRESSURE CO2 78.5 mmHg (35.0-45.0); ABG pH (ARTERIAL) 7.211 UNITS (7.350-7.450)
[2018-08-18] MEDS ORDERED: NALOXONE INJ 0.4 MG/1 ML VIAL (J2310) IV STA (22:36)
[2018-08-18] MEDS ORDERED: cefTRIAXone SOD 1 GM in D5W MINI-BAG PLUS 50 ML IV ONE (23:00)
[2018-08-18] MEDS ORDERED: MELA5TAB7 PO (23:18)
[2018-08-18] MEDS ORDERED: ACET0.052 PO (23:18)
[2018-08-18] MEDS ORDERED: ROPI0.5T PO (23:18)
[2018-08-19] VITALS (16 sets, daily range): BP systolic 79–98; BP diastolic 50–59; O2SAT 96
[2018-08-19 01:03] LABS: ALBUMIN 2.4 GM/DL (3.2-5.2); BILIRUBIN,DIRECT 0.2 MG/DL (0.0-0.2); BILIRUBIN,TOTAL 0.3 MG/DL (0.2-1.0); CALCIUM LEVEL 8.1 MG/DL (8.8-10.2); CK-MB VALUE MASS 6.7 NG/ML (<3.6); CREATININE FOR GFR 2.96 MG/DL (0.70-1.30); GLOMERULAR FILTRATION RATE 22.7 (>49); MB/CK RELATIVE INDEX 22.33 (< OR =4); POTASSIUM SERUM 4.3 MEQ/L (3.5-5.1); THYROID STIMULATING HORMONE 1.13 uIU/ML (0.358-3.740); TOTAL PROTEIN 6.2 GM/DL (6.4-8.2); TROPONIN I 0.02 NG/ML (< 0.10)
[2018-08-19 01:04] LABS: ABG BASE EXCESS 0.7 (-2.0-2.0); ABG HCO3 30.3 MEQ/L (22.0-26.0); ABG O2 SATURATION 97.5 % (95.0-99.0); ABG PARTIAL PRESSURE CO2 78.8 mmHg (35.0-45.0); ABG PARTIAL PRESSURE O2 116.1 mmHg (75.0-100.0); ABG STANDARD HCO3 25.1 MEQ/L (22.0-26.0); ABG TOTAL CO2 32.7 MEQ/L (23.0-31.0); ABG pH (ARTERIAL) 7.203 UNITS (7.350-7.450)
[2018-08-19] MEDS ORDERED: KETOROLAC 30 MG/ML VIAL (J1885) IV ONE (02:30)
--- NOTE | 2018-08-19 02:35 | HPEPDOC ---
[facility] Medical History & Physical Date of Admission Aug 19, 2018 Date of Service: Aug 19, 2018 History and Physical CHIEF COMPLAINT: lower extremity weakness HISTORY OF PRESENT ILLNESS: 67 y/o M with Hx of AMI in 2017 s/p CABG resulting in CKD on HD since then, MWF, also Hx of low back pain brought to ED by his due to lower extremity weakness and increased low back pain. Pt has chronic low back pain sec to lumbar spine compression fracture, today pain was intolerable 8/10 with no radiation. Pt denies any bowel or bladder incontinence. Pt is at bedside she states that he completed hemodialysis today as per the schedule on arrival to home he was extremely weak not able to stand on his feet with increased pain in his back. In the ED pt was found to have respiratory distress as well, ABG revealed hypercarbic respiratory failure and pt received BiPAP support. Upon my encounter pt is sleepy and confused, just recently received morphine due to pain. Denies CP or palpitations. ED Course: Started on BiPAP, ABG PH 7.2 PCo2 78 HCo3 30. BP 90-50. Lumbar spine CT reveals L3 L4 compression fracture with lucency suspicious for malignancy? Chest CT with pleural effusion and Rt middle lobe and lower lobe pneumonia PAST MEDICAL HISTORY: as above PAST SURGICAL HISTORY: as above SOCIAL HISTORY: no smoking ETOH occasional no drugs lives with HD MWF FAMILY HISTORY: extensive CAD in mother side and father side ALLERGIES: Please see below. REVIEW OF SYSTEMS: 10 point negative except above HOME MEDICATIONS: Please see below. PHYSICAL EXAMINATION: GENERAL APPEARANCE: on BiPAP, pt is awake and alert however slow to responses HEENT: neck supple no JVD no trauma no discharge no erythema CARDIOVASCULAR: s1 s2 no murmur LUNGS: decreased breath sound at bases ABDOMEN: soft NT ND EXTREMITIES: no edema no cyanosis no tenderness NEUROLOGICAL: motor sensory intact grossly pt able to move all extremities PSYCHIATRIC: mood affect appropriate LABORATORY DATA: See below. IMAGING: Lumbar Spine CT: 1. Moderate L3 and L4 vertebral body superior endplate compression fractures have developed since September of 2017. 2. In particular, L3 superior endplate compression may be acute and pathologic; there is lucency in the mid and anterior aspect of the L3 vertebral body suspicious for underlying metastatic disease Chest CT: 1. Moderate right and small left pleural effusions, increased since prior. 2. Suspicious for right middle and lower lobe pneumonia. 3. Age-indeterminate T6 and to a lesser extent T1 and T8 vertebral body fractures have developed since the prior study without significant osseous retropulsion. MICROBIOLOGY: Please see below. A/P 1-Acute hypercarbic respiratory failure 2-HCAP 3-Hypotension 4-Intractable low back pain 5-Hx of ESRD on HD last dialysis today 6-Hx of CAD s/p CABG 7-L3 L4 pathologic compression fracture with lucency suspicious for malignancy Cont on BiPAP Received one dose ceftriaxone in the ED , will cont daily dose Azithromycin added Pain control Ketorolac 15 mg prn cont home meds Pulmonary Consult in AM DVT prophylaxis Vital Signs Vital Signs Date Time Temp Pulse Resp B/P (MAP) Pulse Ox O2 Delivery O2 Flow Rate FiO2 08/19/18 01:10 87 18 96/54 (68) 94 NIPPV (BIPAP/CPAP) 08/18/18 22:55 50 08/18/18 20:26 2.0 08/18/18 18:49 97.4 Laboratory Data Labs 24H Laboratory Tests 2 08/18/18 18:52: Lactic Acid Level 1.2, Ammonia 47H 08/18/18 19:14: Immature Granulocyte % (Auto) 4.0H, White Blood Count 7.5, Red Blood Count 3.58L, Hemoglobin 10.9L, Hematocrit 36.3L, Mean Corpuscular Volume 101.4H, Mean Corpuscular Hemoglobin 30.4, Mean Corpuscular Hemoglobin Concent 30.0L, Red Cell Distribution Width 16.0H, Platelet Count 205, Neutrophils (%) (Auto) 73.3H, Lymphocytes (%) (Auto) 6.0L, Monocytes (%) (Auto) 13.7H, Eosinophils (%) (Auto) 2.3, Basophils (%) (Auto) 0.7, Neutrophils # (Auto) 5.5, Lymphocytes # (Auto) 0.5L, Monocytes # (Auto) 1.0H, Eosinophils # (Auto) 0.2, Basophils # (Auto) 0.1, Nucleated Red Blood Cells % (auto) 0.0, Blood Gas Bicarbonate Standard 25.7, Venous Blood pH 7.276L, Venous Blood Partial Pressure CO2 65.4H, Venous Blood Partial Pressure O2 67.9H, Venous Blood Total Carbon Dioxide 31.8H, Venous Blood HCO3 29.8H, Venous Blood Oxygen Saturation 91.7H, Venous Blood Base Excess 1.6 08/18/18 21:55: Blood Gas Bicarbonate Standard 25.5, Arterial Blood pH 7.211*L, Arterial Blood Partial Pressure CO2 78.5*H, Arterial Blood Partial Pressure O2 91.3, Arterial Blood Total CO2 33.2H, Arterial Blood HCO3 30.8H, Arterial Blood Base Excess 1.2, Arterial Blood Oxygen Saturation 94.8L 08/19/18 00:01: Anion Gap 5L, Glomerular Filtration Rate 22.7L, Osmolality 293, Calcium Level 8.1L, Aspartate Amino Transf (AST/SGOT) 27, Alanine Aminotransferase (ALT/SGPT) 18, Alkaline Phosphatase 213H, Total Bilirubin 0.3, Direct Bilirubin 0.2, Total Creatine Kinase 30L, Creatine Kinase MB 6.7H, Creatine Kinase MB Relative Index 22.33H, Troponin I 0.02, Total Protein 6.2L, Albumin 2.4L, Albumin/Globulin Ratio 0.63L, Thyroid Stimulating Hormone (TSH) 1.130 08/19/18 00:45: Blood Gas Bicarbonate Standard 25.1, Arterial Blood pH 7.203*L, Arterial Blood Partial Pressure CO2 78.8*H, Arterial Blood Partial Pressure O2 116.1H, Arterial Blood Total CO2 32.7H, Arterial Blood HCO3 30.3H, Arterial Blood Base Excess 0.7, Arterial Blood Oxygen Saturation 97.5 CBC/BMP Laboratory Tests 08/18/18 19:14 Red Blood Count 3.58 L, Mean Corpuscular Volume 101.4 H, Mean Corpuscular Hemoglobin 30.4, Mean Corpuscular Hemoglobin Concent 30.0 L, Red Cell Distri bution Width 16.0 H, Neutrophils (%) (Auto) 73.3 H, Lymphocytes (%) (Auto) 6.0 L, Monocytes (%) (Auto) 13.7 H, Eosinophils (%) (Auto) 2.3, Basophils (%) (Auto) 0.7, Neutrophils # (Auto) 5.5, Lymphocytes # (Auto) 0.5 L, Monocytes # (Auto) 1.0 H, Eosinophils # (Auto) 0.2, Basophils # (Auto) 0.1 08/19/18 00:01 Microbiology Microbiology 08/18/18 Blood Culture, Received Pending 08/18/18 Blood Culture, Received Pending Home Medications Scheduled Atorvastatin Calcium (Lipitor) 20 Mg Tab, 20 MG PO QHS Docusate Sodium (Colace) 100 Mg Cap, 100 MG PO DAILY Ergocalciferol (Vitamin D2) (Drisdol) 50,000 Unit Capsule, 50,000 UNIT PO 1XWK SUNDAYS Ferrous Gluconate (Ferrous Gluconate) 324 Mg Tab, 324 MG PO DAILY Folic Acid (Folic Acid) 1 Mg Tab, 1 MG PO DAILY Gabapentin (Gabapentin) 100 Mg Cap, 100 MG PO QAM Gabapentin (Gabapentin) 100 Mg Cap, 300 MG PO QHS Melatonin (Melatonin) 5 Mg Tablet, 5 MG PO QHS Midodrine HCl (Midodrine HCl) 10 Mg Tab, 10 MG PO TID Pantoprazole Sodium (Protonix) 40 Mg Tab, 40 MG PO DAILY Patiromer Calcium Sorbitex (Veltassa) 8.4 Gm Pow, 8.4 GM PO QHS Ropinirole HCl (Ropinirole HCl) 0.5 Mg Tablet, 0.5 MG PO QHS Sertraline Hcl (Zoloft) 25 Mg Tab, 50 MG PO QHS Sucroferric Oxyhydroxide (Velphoro) 500 Mg Tab.chew, 500 MG PO WM Scheduled PRN Acetaminophen/Diphenhydramine (Acetaminophen-Diphenhyd 500-25) 1 Each Tablet, 2 TAB PO QHS PRN for PAIN Nystatin (Nystatin Powder) 15 Gm Powder, 1 APLCT TOP BID PRN for RASH USES ON GROIN NEEDED Allergies Coded Allergies: No Known Allergies (Unverified , 08/18/18) A-FIB/CHADSVASC A-FIB History Current/History of A-Fib/PAF?: No AYDE GUILLEN MD Aug 19, 2018 02:35
[2018-08-19 03:13] LABS: ABG BASE EXCESS 2.2 (-2.0-2.0); ABG HCO3 32.2 MEQ/L (22.0-26.0); ABG O2 SATURATION 98.2 % (95.0-99.0); ABG PARTIAL PRESSURE O2 138.5 mmHg (75.0-100.0); ABG STANDARD HCO3 26.5 MEQ/L (22.0-26.0); ABG TOTAL CO2 34.8 MEQ/L (23.0-31.0)
[2018-08-19 03:17] LABS: ABG PARTIAL PRESSURE CO2 83.7 mmHg (35.0-45.0); ABG pH (ARTERIAL) 7.203 UNITS (7.350-7.450)
[2018-08-19] MEDS: IPRATROPIUM 0.5MG/ALBUTEROL 2.5MG INH SOL UD 3ML (DUONEB)(J7620) NEB SCH ×2 (04:31→20:44)
[2018-08-19 05:20] LABS: ABG HCO3 32.6 MEQ/L (22.0-26.0); ABG PARTIAL PRESSURE O2 108.8 mmHg (75.0-100.0); ABG STANDARD HCO3 26.2 MEQ/L (22.0-26.0); ABG TOTAL CO2 35.4 MEQ/L (23.0-31.0)
[2018-08-19 05:27] LABS: ABG PARTIAL PRESSURE CO2 90.5 mmHg (35.0-45.0); ABG pH (ARTERIAL) 7.175 UNITS (7.350-7.450)
[2018-08-19] MEDS ORDERED: MIDAZOLAM INJ 5 MG/ML VIAL (J2250) As Ordered ONE (05:54)
[2018-08-19] MEDS ORDERED: SODIUM BICARBONATE 8.4% INJ 50 ML SYRINGE As Ordered ONE (05:54)
[2018-08-19] MEDS ORDERED: AZITHROMYCIN INJ 500 MG, VIAL MATE ADAPTER 1 EACH in D5W 250 ML IV SCH (06:00)
[2018-08-19] MEDS ORDERED: MIDAZOLAM HCL 50 MG in D5W 40 ML IV SCH (06:00)
--- NOTE | 2018-08-19 06:03 | ECGEPIP ---
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
[2018-08-19] MEDS ORDERED: ROCURONIUM BROMIDE 50 MG/5 ML VIAL IV STA (06:06)
[2018-08-19] MEDS ORDERED: ETOMIDATE INJ 20MG/10ML VIAL IV STA (06:06)
[2018-08-19] MEDS ORDERED: MIDAZOLAM INJ 5 MG/ML VIAL (J2250) IV ONE (06:15)
[2018-08-19] MEDS ORDERED: VANCOMYCIN HCL 750 MG, VIAL MATE ADAPTER 1 EACH in D5W 250 ML IV SCH (06:15)
[2018-08-19] MEDS ORDERED: SODIUM BICARBONATE 4.2% INJ 10 ML SYRINGE IV STA (06:20)
[2018-08-19] MEDS ORDERED: NS 1,000 ML IV ONE (06:30)
[2018-08-19] MEDS ORDERED: VANCOMYCIN HCL 1,000 MG, VIAL MATE ADAPTER 1 EACH in D5W 250 ML IV ONE (06:30)
[2018-08-19 06:39] LABS: BASO # 0.1 10^3/uL (0.0-0.2); BASO % 1.3 % (0.0-1.0); EOS # 0.2 10^3/uL (0.0-0.50); EOS % 2.6 % (0.0-3.0); HEMOGLOBIN 10.5 g/dl (13.5-17.5); LYMPH # 0.5 10^3/uL (1.5-4.5); MEAN CORPUSCULAR HEMOGLOBIN 30.8 pg (27.0-33.0); MEAN CORPUSCULAR HGB CONC 29.2 g/dl (32.0-36.5); MEAN CORPUSCULAR VOLUME 105.6 fl (80.0-96.0); MONO % 16.6 % (0.0-5.0); NEUTROPHILS # 4.3 10^3/uL (1.8-7.7); PLATELET COUNT, AUTOMATED 178 10^3/uL (150-450); RED BLOOD COUNT 3.41 10^6/uL (4.30-6.10); WHITE BLOOD COUNT 6.3 10^3/uL (4.0-10.0)
[2018-08-19 07:20] LABS: ALBUMIN 2.3 GM/DL (3.2-5.2); BILIRUBIN,TOTAL 0.5 MG/DL (0.2-1.0); CALCIUM LEVEL 8.4 MG/DL (8.8-10.2); CREATININE FOR GFR 3.3 MG/DL (0.70-1.30); GLOMERULAR FILTRATION RATE 20.1 (>49); POTASSIUM SERUM 4.6 MEQ/L (3.5-5.1); TOTAL PROTEIN 6.5 GM/DL (6.4-8.2)
[2018-08-19] MEDS: HEPARIN SOD (PORCINE) 5000 UNITS/ML VIAL SC SCH ×3 (07:43→21:45)
[2018-08-19] MEDS ORDERED: MIDODRINE 5 MG TAB PO SCH (08:00)
--- NOTE | 2018-08-19 08:11 | REP ---
Portable chest, 06:11 a.m., single AP view with the patient supine: Comparison is 08/18/2018. The large right pleural effusion is unchanged. Supine position precludes evaluation for hydropneumothorax. There has been interval placement of an endotracheal tube with the tip just above the thom but angled toward the bronchus intermedius. Focal lung parenchymal density is again noted at the cardiac apex, unchanged. Sternotomy wires again identified, unchanged. Cardiac size again appears enlarged. Impression: The tip of the endotracheal tube is in the distal trachea but is angled toward the bronchus intermedius. Electronically Signed by Hector Helton MD 08/19/2018 08:03 A
[2018-08-19] MEDS ORDERED: DOCUSATE SODIUM 100 MG CAP PO SCH (09:00)
[2018-08-19] MEDS ORDERED: cefTRIAXone SOD 1 GM in D5W MINI-BAG PLUS 50 ML IV SCH (09:00)
[2018-08-19] MEDS ORDERED: FOLIC ACID 1 MG TAB PO SCH (09:00)
[2018-08-19] MEDS ORDERED: GABAPENTIN 100 MG CAP PO SCH (09:00)
[2018-08-19] MEDS ORDERED: PANTOPRAZOLE 40MG TAB (PROTONIX) PO SCH (09:00)
[2018-08-19] MEDS ORDERED: FERROUS GLUCONATE 324 MG TAB PO SCH (09:00)
[2018-08-19 09:13] LABS: ABG O2 SATURATION 97.3 % (95.0-99.0); ABG PARTIAL PRESSURE CO2 31.8 mmHg (35.0-45.0); ABG PARTIAL PRESSURE O2 91.6 mmHg (75.0-100.0); ABG STANDARD HCO3 24.5 MEQ/L (22.0-26.0); ABG pH (ARTERIAL) 7.477 UNITS (7.350-7.450)
[2018-08-19] MEDS ORDERED: PIPERACILLIN/TAZOBACTAM SOD 2.25 GM in D5W MINI-BAG PLUS 50 ML IV SCH (10:00)
[2018-08-19] MEDS ORDERED: VANCOMYCIN HCL 1,000 MG, VIAL MATE ADAPTER 1 EACH in D5W 250 ML IV SCH (10:30)
--- NOTE | 2018-08-19 10:56 | IPNPDOC ---
Text Note Date of Service The patient was seen on 08/19/18 at 0830. NOTE S: patient known to me from previous admission. states patient has progressively weakned. Non compliant with home treatment and has been to ED 3 x since discharge. Currently patient is intubated. Cardiology, nephrology,pulmonary spring assembler supervisor on board O: Vitals as below He remains sedated/intubated and hypotensive HRRR Lungs with rales, no rhonchi Ext 3+ edema A/P: 1-Acute hypercarbic respiratory failure - d/c bicarb drip. pulm consulted and managing vent/pulm status 2-HCAP - doubt. pulm consulted and case discussed. This appears to be CHF not pneumonia. d/c antibiotics 3-Hypotension with endstage cardiomyopathy/CAD - cardiology consulted. 4-Intractable low back pain with new osteoporosis vertebral fractures per - xrays with L3 L4 pathologic compression fracture with lucency suspicious for malignancy 5-Hx of ESRD on HD - consulted nephrology for dialysis 6-Hx of CAD s/p CABG Discussed with and 2 daughters grave/grim prognosis. VS,Fishbone, I+O VS, Fishbone, I+O Laboratory Tests 08/18/18 19:14 Red Blood Count 3.58 L, Mean Corpuscular Volume 101.4 H, Mean Corpuscular Hemoglobin 30.4, Mean Corpuscular Hemoglobin Concent 30.0 L, Red Cell Distribution Width 16.0 H, Neutrophils (%) (Auto) 73.3 H, Lymphocytes (%) (Auto) 6.0 L, Monocytes (%) (Auto) 13.7 H, Eosinophils (%) (Auto) 2.3, Basophils (%) (Auto) 0.7, Neutrophils # (Auto) 5.5, Lymphocytes # (Auto) 0.5 L, Monocytes # (Auto) 1.0 H, Eosinophils # (Auto) 0.2, Basophils # (Auto) 0.1 08/19/18 00:01 08/19/18 06:28 Red Blood Count 3.41 L, Mean Corpuscular Volume 105.6 H, Mean Corpuscular Hemoglobin 30.8, Mean Corpuscular Hemoglobin Concent 29.2 L, Red Cell Distribution Width 16.2 H, Neutrophils (%) (Auto) 68.0 H, Lymphocytes (%) (Auto) 8.0 L, Monocytes (%) (Auto) 16.6 H, Eosinophils (%) (Auto) 2.6, Basophils (%) (Auto) 1.3 H, Neutrophils # (Auto) 4.3, Lymphocytes # (Auto) 0.5 L, Monocytes # (Auto) 1.0 H, Eosinophils # (Auto) 0.2, Basophils # (Auto) 0.1, Calcium Level 8.4 L, Aspartate Amino Transf (AST/SGOT) 19, Alanine Aminotransferase (ALT/SGPT) 20, Alkaline Phosphatase 186 H, Total Bilirubin 0.5 #, Total Protein 6.5, Albumin 2.3 L Vital Signs Date Time Temp Pulse Resp B/P (MAP) Pulse Ox O2 Delivery O2 Flow Rate FiO2 08/19/18 10:00 96.8 73 22 81/53 (63) 98 40 08/19/18 09:33 Ventilator 08/18/18 20:26 2.0 I&O- Last 24 Hours up to 6 AM 08/19/18 06:00 Intake Total 50 ml Balance 50 ml LISSETH ARMSTRONG DO Aug 19, 2018 10:56
[2018-08-19] MEDS ORDERED: PANTOPRAZOLE 40MG INJ (PROTONIX) (C9113) IV SCH (11:00)
--- NOTE | 2018-08-19 11:09 | CR ---
DATE OF VISIT: 08/19/2018 START TIME: 1020 STOP TIME: 1046 I again attended Александр Humphrey. I had an extensive conversation at the bedside with the and one of the daughters regarding his code status. Last blood gas did show a mild respiratory alkalosis, and ventilator changes have been made. Repeat blood gas is pending. Blood pressure remains in the 80s with a mean arterial pressure between 63 and 66. I have spoken at length with Dr. Coelho, as well. The current plan is hopefully for dialysis tomorrow. I had a conversation earlier this morning with Dr. Berumen, as well. At this point, the patient has essentially no reserve from a cardiac standpoint, as he had basically a nonfunctioning right ventricle, end-stage renal disease; and even though he gets 4 liters removed with dialysis, he goes home and is completely noncompliant with his fluid restriction. In view of all of this, I spoke with the regarding further interventions, as even vasopressors at this point, I believe, would be only a minimal temporizing measure. We did discuss DO NOT RESUSCITATE (DNR) status with no re-intubation should he be extubated with no cardiopulmonary resuscitation (CPR), no vasopressors, and no cardioversion or defibrillation. She would like to discuss that with his two daughters and will let us know. In preparation for signature by them, the Medical Orders for Life-Sustaining Treatment (MOLST) form has been filled out to that regard, and we await their decision. Will proceed as outlined above. An additional 26 minutes of critical care delivered at the bedside, not including procedures.
--- NOTE | 2018-08-19 11:10 | PHACANCOPD ---
PHARMACY VANCOMYCIN DOSING Pt Demographics Demographics Patient Age:67 , Weight:88.900 , Gender: male Adjusted Body Weight Date: 08/19/18, Adjusted Body Weight: [80.7] Kg Events Past 24 Hours Events Past 24 Hours: NO: Dialysis, Diuretic Therapy, Change in CrCl, Fever, Elevation in WBC, Pending Diagnostics, Pending Procedures, Other Vancomycin Vancomycin indication: HCAP Vancomycin Target Ranges: 15-20 mcg/ml Vancomycin Load Y/N: No Load Dose Date Time Vancomycin Load Dose: Date: Time: Vancomycin Dose Date: 08/19/18. Current Vancomycin Dose: [1G IV AFTER HD] Intermittent Dosing?: No Labs Labs Item Value Date Time White Blood Count 7.5 10^3/uL 08/18/18 1914 White Blood Count 6.3 10^3/uL 08/19/18 0628 Creatinine 2.96 MG/DL H 08/19/18 0001 Creatinine 3.30 MG/DL H 08/19/18 0628 Micro Microbiology 08/18/18 Blood Culture, Received Pending 08/18/18 Blood Culture, Received Pending Creatinine Clearance Date:08/19/18. Creatinine Clearance: [~26ml/min]. Pending Labs mrsa screen Assessment and Plan Maintaining Current Dose?: Yes Reason for dose change: No Dose Change Pharmacist Note Pharmacist Note Date: 08/19/18. Pharmacist note: PT is a 67 year old male being treated for hcap goal trough 15-20mcg/ml. The patient was last treated with vancomycin here at [facility] in December 2017. The patient is currently a dialysis pt being scheduled Saturday, and Saturday. The patient received 1g IV in the ER 08/19/18 @ 9:30. Maintenance therapy will consist of 1g IV after HD. vancomycin level is scheduled for 08/21/18 Am. We will continue to monitor and adjust the dose as needed. ALIYA PULIDO PHARMACY Aug 19, 2018 11:10
[2018-08-19 12:48] LABS: ABG BASE EXCESS 2.2 (-2.0-2.0); ABG HCO3 24.8 MEQ/L (22.0-26.0); ABG O2 SATURATION 95.3 % (95.0-99.0); ABG PARTIAL PRESSURE O2 67.3 mmHg (75.0-100.0); ABG STANDARD HCO3 26.4 MEQ/L (22.0-26.0); ABG TOTAL CO2 25.8 MEQ/L (23.0-31.0); ABG pH (ARTERIAL) 7.507 UNITS (7.350-7.450)
[2018-08-19] MEDS: FOLIC ACID 1 MG TAB NG SCH (13:45)
[2018-08-19] MEDS: MIDODRINE 5 MG TAB NG SCH ×2 (13:46→17:01)
[2018-08-19] MEDS: DOCUSATE SOD LIQ 100MG/10ML UDC GT SCH ×2 (13:47→21:45)
--- NOTE | 2018-08-19 14:29 | CCN ---
DATE OF CONSULTATION: 08/19/2018 ATTENDING PHYSICIAN: Dr. Bermudez HISTORY OF PRESENT ILLNESS: The patient is a 67-year-old white male, past medical history significant for myocardial infarction status post coronary artery bypass graft (CABG) in 2016, end stage renal disease on dialysis Saturday, Saturday and Saturday, hyperlipidemia, hypotension, who presented to the emergency department via emergency medical services (EMS), assisted by his on 08/19/2018 with a chief complaint of bilateral and increased low back pain. The patient does have a history of chronic low back pain secondary to a lumbar spine compression fracture. At EMS presentation, the patient reported that his low back pain was intolerable, rating it as an 8 out of 10 with no radiation. He denied any bladder or bowel incontinence. Prior to contacting EMS, the patient had a complete session of dialysis as scheduled. Upon returning home, however, the patient did report feeling extremely weak, being unable to stand on his feet. also reports that the patient was slightly confused, which is not unusual for him following hemodialysis. In the emergency department, the patient was found to be in respiratory distress with oxygen saturation of 94% on room air and was extremely volume overloaded. Initial blood gas indicated hypercarbic respiratory acidosis. The patient was subsequently placed on a bilevel positive airway pressure (BIPAP) machine. Repeat blood gases indicated that the patient continued to suffer respiratory decline. The admitting hospitalist contacted the web site manager at 0600 the morning of 08/19/2018, at which time it was suggested that the patient be intubated and mechanically ventilated. The patient underwent subsequent intubation in the emergency department. The patient was placed on pressure-like regulated volume control (PRVC) ventilator mode with a respiratory rate of 20, tidal volume of 400, FiO2 of 50% with pressure support of 5. Finished Cloth Examiner formally consulted and planned to follow the patient into the intensive care unit (ICU) and management of ventilator settings. The patient was recently admitted to the hospital on 08/05/2018 for congestive heart failure (CHF). During that time, the patient underwent both a paracentesis and a thoracentesis in addition to almost daily dialysis to remove fluid. During that hospitalization stay, the patient's case was discussed with cardiothoracic surgery, who did not feel that the patient required a chest tube and advised against repeated thoracentesis. PAST MEDICAL HISTORY: Significant for: 1. Coronary artery disease with myocardial infarction in 01/2017 resulting in a coronary artery bypass graft (CABG). 2. End stage renal disease following myocardial infarction. The patient receives hemodialysis on Saturday, Saturday and Saturday. 3. Hyperlipidemia. 4. Hypotension. 5. Neuropathy. 6. Diet controlled diabetes. 7. Chronic pleural effusion on the right. 8. Acute on chronic diastolic congestive heart failure (CHF). 9. Chronic ascites secondary to end stage renal disease. SURGICAL HISTORY: 1. CABG times three, as mentioned above, in January 2017. 2. Left arm fistula used for dialysis. 3. Right leg vein graft harvesting. FAMILY HISTORY: The patient's mother is alive with heart disease at 87. Father is of myocardial infarction at age 80. SOCIAL HISTORY: The patient's states that he is a nonsmoker, will occasionally use alcohol. No recent pertinent drug use. The patient also denies any recent travel or sick contacts. ALLERGIES: The patient has no known allergies. REVIEW OF SYSTEMS: Unable to be obtained at the time of examination given that the patient was intubated and sedated. The patient's does say that the patient prior to presentation to the emergency department was complaining of bilateral lower back pain, which has been chronic. She also states that following his regularly scheduled hemodialysis session, the patient was reporting weakness and did demonstrate some confusion. denies any recent fevers or chills, no known nausea or vomiting, abdominal pain, change in stool habits. As previously mentioned, the patient complained of weakness in his bilateral legs but denied any radiating pain from his back or numbness or tingling in his legs. PHYSICAL EXAMINATION: VITAL SIGNS: The patient's heart rate is 70 beats per minute, respiratory rate is 19 beats per minute. Temperature is 97.5, blood pressure 89/54. GENERAL: The patient is found to be sedated on a ventilator in the emergency department stretcher. He appears older than his stated age. He is is at bedside. HEENT: The patient is otherwise normocephalic, atraumatic. His pupils are equal. Ventilator is in place in addition an orogastric tube. Prominent jugular venous distention (JVD) noted. The patient's trachea is midline. His membranes are moist. RESPIRATORY: Diminished lung sounds in the right middle and right lower lobes. Adequate air movement throughout the remaining lung loaiza. No wheezing, rales or rhonchi with symmetric chest expansion. CARDIAC: Heart sounds are distant but regular. Peripheral pulses are palpable, including radial and posterior tibial bilaterally. The patient does have 4+ edema in the lower extremities rising above the level of the knee. The patient's abdomen is soft without any obvious masses. Bowel sounds are active. EXTREMITIES: Do not show any cyanosis or clubbing. NEUROLOGIC: The patient is sedated. LABORATORY VALUES: Hematology: WBC is 6.3, hemoglobin and hematocrit of 10.5 and 36.0. Chemistries: Sodium is 135, potassium 4.6, chloride 99, carbon dioxide 31, anion gap of 5, BUN of 20, creatinine of 3.3, lactic acid of 1.2, calcium of 8.4. Blood gas following intubation is 24.5 bicarbonate standard, pH of 7.47, pCO2 of 31.8, pO2 of 91.6, calculated bicarbonate of 23. The patient's urine remains pending. Microbiology: Blood cultures are pending. IMAGING STUDIES: The patient did have a head CT, which did not demonstrate any acute intracranial abnormality. A lumbar spine CT was also performed indicating moderate L3 and L4 vertebral superior end plate compression fractures, which have progressed since they were first noted in September 2017. The L3 superior end plate compression may be acute and pathologic. There was some lucency noted in the mid and anterior aspect of the L3 vertebral body, which may be suspicious for underlying metastatic disease. Chest CT did demonstrate moderate right and small left pleural effusions, which have been perhaps increased since prior examination. Some question of right middle and lower lobe pneumonia. Age indeterminate T6 and to a lesser extent T1 and T8 vertebral body fractures that have developed since prior studies. A chest x-ray following intubation did demonstrate that the tip of the endotracheal tube is in the distal trachea. ASSESSMENT AND PLAN: 1. Hypercarbic respiratory failure. The patient is currently ventilated and sedated. The appropriate ventilator care has been ordered. Continue with daily ABG and chest x-ray, current ventilator settings are as follows: Ventilator mode is pressure-like regulated volume control (PRVC) , respiratory rate is 16, tidal volume of 400, FiO2 of 50, and pressure support of 5. Repeat ABG following initially intubation does demonstrate improvement with the patient's pH improving from 7.17 to 7.47, the patient's PCO2 also improving from 90.5 to 31.8. Following these results as mentioned above, the patient's respiratory rate was decreased. Plan to continue to follow daily for ventilator setting management. 2. Hypotension. The patient does not have central access at this time. Hopefully, the patient will not require any further intervention. He is receiving a fluid bolus at this time and his pressures have been maintaining a MAP over 65. 3. Fluid overload. The patient's fluid to be managed by the primary team and nephrology as indicated. 4. Pleural effusion, bilaterally. The patient does demonstrate consistent right middle and right lower lobe effusions, as well as a small left effusion. As mentioned in the history of present illness, it was determined that these are chronic and stable and will not require further draining at this time. 5. Acute on chronic congestive heart failure (CHF). The patient is extremely volume overloaded. The case was reviewed with the patient's cigarette tester, Dr. Berumen, who will be seeing the patient in the hospital. 6. End stage renal disease. Nephrology has been consulted, as they have been following the patient during his prior hospitalization. 7. Diabetes. To be managed by the primary team. 8. Deep vein thrombosis (DVT) prophylaxis. The patient should be placed on prophylaxis, although orders are not available at this time. 9. Gastrointestinal prophylaxis. The patient should be placed on GI prophylaxis, although no order is available at this time. 10. The patient did have some question of infiltrate on imaging studies. Laboratory values do not demonstrate a leukocytosis. The patient is afebrile. Plan to followup with procalcitonin tomorrow for further assessment. The patient has been started on empiric antibiotic therapy and will be downgraded as appropriate. CODE STATUS: Patient is a FULL CODE I was physically present for the entire interview and exam. Independent interview and exam were performed. BELLA
[2018-08-19] MEDS: MIDAZOLAM INJ 2 MG/2 ML VIAL (J2250) IV PRN ×5 (15:53→23:05)
[2018-08-19] MEDS ORDERED: SUCCINYLCHOLINE 100 MG/5 ML SYRINGE (J0330) ONE (18:19)
[2018-08-19] MEDS ORDERED: GABAPENTIN 100 MG CAP NG SCH (21:00)
[2018-08-19] MEDS ORDERED: ATORVASTATIN 20 MG TAB NG SCH (21:00)
--- NOTE | 2018-08-19 22:07 | CR ---
DATE OF CONSULTATION: 08/19/2018 REASON FOR CONSULTATION: Management of end-stage renal disease and decompensated volume status. CHIEF COMPLAINT: The patient presented to the emergency room with persistent lower extremity weakness and progressive shortness of breath. HISTORY OF PRESENT ILLNESS: Mr. Александр Humphrey is a 67-year-old male with a past medical history of end-stage renal disease, on hemodialysis every Saturday, Saturday, Saturday, with severe right heart failure and severe pulmonary hypertension, history of pleural effusions requiring tap, and history of ascites as well, chronically noncompliant with fluid restriction, who has interdialytic weight gains of almost 4-5 kg with frequent previous hospitalizations. He was dialyzed as per his regular schedule yesterday, and more than 4 liters of fluid was removed. He was brought to the emergency room yesterday with lower extremity weakness, lower back pain, weakness, and inability to walk. The patient was found to have respiratory distress in the emergency room. He was in hypercapnic respiratory failure. The patient was initially on the bilevel positive airway pressure (BiPAP). His arterial blood gas (ABG) did not improve on the BiPAP. Patient was intubated in the emergency room, and he was brought up to the intensive care unit (ICU). Imaging, including a CT scan of the chest done in the emergency room, showed that the patient had a moderate to large right-sided pleural effusion along with the right middle and right lower lobe pneumonia. Patient is intubated and sedated. Nephrology service was called for further help in the management of end-stage renal disease and optimization of fluid status. I saw and evaluated the patient today morning in the ICU at the bedside. Since intubation, his acidosis is improving. The patient is opening eyes and follows commands now, even though he is sedated. He is hemodynamically stable with the blood pressures and low 80s and 90s, not requiring pressors. PAST MEDICAL HISTORY: 1. End-stage renal disease on hemodialysis every Saturday, Saturday, Saturday. 2. History of coronary artery disease. 3. Severe right heart failure. 4. Severe primary hypertension. 5. History of low back pain. 6. Recurrent pleural effusions and ascites. 7. Diabetes mellitus, type 2. 8. Cirrhosis of the liver. 9. Chronic hypotension. 10. Hyperlipidemia. PAST SURGICAL HISTORY: 1. Status post coronary artery bypass grafting, triple-vessel. 2. Status post pleural taps in the past. 3. Status post multiple paracenteses in the past. ALLERGIES: No known drug allergies. FAMILY HISTORY: No significant family history of end-stage renal disease requiring hemodialysis. REVIEW OF SYSTEMS: Patient is intubated. He is unable to provide any review of systems at this point. PHYSICAL EXAMINATION: GENERAL: The patient is intubated, lightly sedated. VITAL SIGNS: Temperature is 96.8 degrees Fahrenheit, blood pressure 81/53, pulse is 73, respiratory rate of 22, saturating 98% on 40% FiO2. HEAD AND NECK: Pupils are equally round and reactive to light. Patient has an endotracheal tube. Neck is supple. There is a moderately limited jugular venous distention (JVD). CARDIOVASCULAR: S1, S2. Edema 2+ of the bilateral lower extremities. RESPIRATORY: Decreased breath sounds at the bases. Right is worse than the left. ABDOMEN: Soft. Positive bowel sounds. Liver is palpable below the costal margin. Ascites was not noted. MUSCULOSKELETAL: No clubbing or cyanosis. Edema 2+ of the lower extremities. CENTRAL NERVOUS SYSTEM: The patient moves extremities to painful stimuli. He actually is able to follow commands even though he is intubated and lightly sedated. GENITOURINARY: Patient has an indwelling Parnell catheter. A very small amount of urine is found in the bag. LYMPH NODES: No significant cervical, axillary, or inguinal lymphadenopathy. LABORATORY REVIEW: CBC showed a WBC 6.3, hemoglobin 10.5, platelets of 178. BMP showed sodium 135, potassium 4.6, chloride 99, bicarbonate 31, BUN 20, creatinine is 3.3, calcium 8.4, alkaline phosphatase is 186, albumin is 2.3. Arterial blood gas (ABG) done today morning after intubation showed pH 7.47, pCO2 of 31, pO2 of 91, bicarbonate is 23, oxygen saturation is 97%. MICROBIOLOGY: Preliminary blood cultures are negative. CT chest showed moderate right and small left pleural effusion. Suspicion for right middle and lower lobe pneumonia. Age indeterminate T6, T1, and T8 vertebral body fractures. CURRENT INPATIENT MEDICATIONS: The patient's medications include: - IV azithromycin - ceftriaxone 1 gram IV times one dose - He was given a normal saline bolus 1 liter. - Vancomycin one dose was given. - Lipitor 20 mg at bedtime - folic acid 1 mg daily - Neurontin 100 mg in the morning - Versed as needed for agitation - midodrine 10 mg three times a day - Requip 0.5 mg at bedtime - Zoloft 50 mg at bedtime ASSESSMENT: A 67-year-old male with end-stage renal disease, on hemodialysis, severe systolic right heart failure, chronic hypotension, cirrhosis with recurrent ascites, admitted at this time with hypercapnic respiratory failure and hypotension. 1. End-stage renal disease, on hemodialysis. The patient was dialyzed yesterday according to his regular schedule. He was hypotensive today morning. He would not be able to be dialyzed. He has been started on midodrine. He will be dialyzed at bedside tomorrow morning, and I will try to remove more fluid. 2. Recurrent right-sided pleural effusion. It is secondary to severe right-sided heart failure with severe pulmonary hypertension. The patient is noncompliant with fluid restriction despite fluid optimization and ascites taps and pleural taps in the past. When the patient goes home after optimization, he drinks more than a gallon of fluid between hemodialysis sessions. One option would be to put in a Pleur-x catheter, and the patient can have this drained every other day at home. 3. Chronic hypotension. Continue current dose of midodrine 10 mg by mouth three times a day. 4. Healthcare-associated pneumonia. Most likely this is fluid in the lungs. The patient was already given ceftriaxone and azithromycin. No leukocytosis. 5. Acute hypercapnic respiratory failure. Patient is intubated. Vent management is as per pulmonary team. The pH is improving with ventilation. 6. Anemia and end-stage renal disease. Hemoglobin is 10.5, which is optimal. No need of Aranesp at this point. 7. Decompensated right heart failure. The patient has severe right heart failure with severe primary hypertension. Attempts to optimize his fluid status multiple times outpatient and inpatient during previous hospitalizations have not been very successful. The patient is very noncompliant with fluid restrictions, and he has end-stage heart failure with end-stage renal disease. The patient overall has a poor very poor prognosis. Critical care team is discussing the goals of care with the patient's family. Total critical care time spent in the management of this patient today morning in the ICU is 50 minutes.
[2018-08-20] VITALS (16 sets, daily range): BP systolic 79–100; BP diastolic 47–62
[2018-08-20] MEDS: MIDAZOLAM INJ 2 MG/2 ML VIAL (J2250) IV PRN ×12 (00:17→09:13)
[2018-08-20] MEDS: IPRATROPIUM 0.5MG/ALBUTEROL 2.5MG INH SOL UD 3ML (DUONEB)(J7620) NEB SCH ×6 (00:31→20:00)
[2018-08-20] MEDS: HEPARIN SOD (PORCINE) 5000 UNITS/ML VIAL SC SCH (05:04)
[2018-08-20 05:33] LABS: HEMATOCRIT 36.4 % (42.0-52.0); MEAN CORPUSCULAR HEMOGLOBIN 30.5 pg (27.0-33.0); MEAN CORPUSCULAR HGB CONC 30.2 g/dl (32.0-36.5); MEAN CORPUSCULAR VOLUME 100.8 fl (80.0-96.0); PLATELET COUNT, AUTOMATED 200 10^3/uL (150-450); RED BLOOD COUNT 3.61 10^6/uL (4.30-6.10); WHITE BLOOD COUNT 9.7 10^3/uL (4.0-10.0)
[2018-08-20 05:48] LABS: CALCIUM LEVEL 8.3 MG/DL (8.8-10.2); CREATININE FOR GFR 4.4 MG/DL (0.70-1.30); GLOMERULAR FILTRATION RATE 14.4 (>49); POTASSIUM SERUM 4.5 MEQ/L (3.5-5.1)
[2018-08-20 05:59] LABS: ABG BASE EXCESS 0.6 (-2.0-2.0); ABG HCO3 22.2 MEQ/L (22.0-26.0); ABG O2 SATURATION 95.6 % (95.0-99.0); ABG PARTIAL PRESSURE CO2 26.8 mmHg (35.0-45.0); ABG PARTIAL PRESSURE O2 73.4 mmHg (75.0-100.0); ABG pH (ARTERIAL) 7.536 UNITS (7.350-7.450)
[2018-08-20] MEDS ORDERED: DIGOXIN INJ 0.5 MG/2 ML AMP (J1160) As Ordered ONE (06:47)
[2018-08-20] MEDS ORDERED: DIGOXIN INJ 0.5 MG/2 ML AMP (J1160) IV ONE (07:00)
[2018-08-20] MEDS ORDERED: AMIODARONE HCL 150 MG in APPROPRIATE DILUENT 1 EA IV STA ×2 (07:05→07:59)
[2018-08-20] MEDS ORDERED: AMIODARONE HCL 150 MG/100 ML PREMIXED BAG (NEXTERONE) As Ordered ONE (07:08)
--- NOTE | 2018-08-20 07:32 | CR ---
DATE OF CONSULTATION: 08/20/2018 INDICATION: Congestive heart failure. HISTORY OF PRESENT ILLNESS: I was asked by Dr. Bermudez to see Mr. Humphrey. He is a patient that is known to me even though I have not seen him in the office since April. He presented to [facility] ([facility] on 08/18/2018 in the evening hours due to generalized weakness. He was just recently hospitalized for right-sided heart failure, but his condition did not improve in any appreciable way and consequently his brought him to the hospital because he was not able to ambulate independently. The emergency room evaluation rapidly revealed evidence for a volume overloaded state with ascites, bilateral pleural effusions and high jugular venous pressure (JVP). These have all been chronic. but he was quite hypercapnic and when the C-PAP was not effective in controlling his CO2 retention, he was eventually intubated yesterday morning. I saw him around lunch time. I met with the family. I explained that this has been a chronic progressive condition that unfortunately does not have any medical solution. I strongly urged the family to consider making him comfort measures only (EMT INTERMEDIATE). When I left the bedside yesterday, I felt that there was a pretty uniform consensus. This morning when I enter the intensive care unit (ICU), the patient reportedly developed narrow complex tachycardia around 6:00 a.m. Looking at his ECG, this most likely represents atrial flutter or potentially some form of supraventricular tachycardia. He apparently was indicating that he was having chest pain, even though when I saw the patient he is obtunded and with his intubation I certainly cannot be certain what his symptoms are, but he does look restless. PAST MEDICAL HISTORY: 1. Coronary artery disease. The patient presented with inferior wall myocardial infarction March 2016 that was complicated by right ventricle infarction. He was critically ill for a long period of time and required ECMO and was transferred to [facility], but eventually was able to go home. He has had chronic right-sided heart failure since in spite of dialysis dependence. He has been receiving frequent paracenteses and occasional thoracenteses to control his volume. His last echocardiogram earlier this year revealed severe pulmonary hypertension that was rather surprising. I had him seen in the transplant center in the [facility] and they did not feel that there is any significant intervention that can be performed. He certainly was not felt to be a candidate for any form of ventricular assist device or heart transplantation. 2. Chronic right-sided congestive heart failure. He has preserved left ventricular systolic function. 3. End-stage renal disease with dialysis dependence. 4. Chronic back pain. SURGICAL HISTORY: Positive for bypass surgery plus repeated paracenteses and occasional thoracenteses. OUTPATIENT MEDICATIONS: - Lipitor 20 mg at bedtime - folic acid - Neurontin 100 once a day - Versed as needed for agitation currently - midodrine 10 mg three times a day - Zoloft 50 at bedtime - Requip SOCIAL HISTORY: The patient is and lives his . There is no recent smoking or alcohol use. FAMILY HISTORY: No longer relevant. REVIEW OF SYSTEMS: As per history of present illness. There is no history of bleeding. No history of stroke. The rest as per history of present illness (HPI) or otherwise negative. PHYSICAL EXAMINATION: The patient is a restless man that appears approximately his calendar age. He is currently in ICU, intubated and sedated, but he is alert, even though I cannot guest room attendant his orientation. Most recent blood pressure 79/52, heart rate 178, he is afebrile, and saturation is high 90s on 100% FIO2. He did not make any urine since yesterday. Weight was documented at 88.9 kg. Jugular venous pulse (JVP) is very high. Lungs reveal diminished breath sounds. Heart rate is very tachycardiac without anderson murmur or gallop. Abdomen is distended with evidence for ascites. Extremities have edema. Neurologic assessment is difficult considering his sedation and agitation, but he moves all four extremities. LABORATORY DATA: This morning, basic metabolic panel with sodium 134, potassium 4.5, BUN 27, creatinine 4.4 and glucose 90. His cardiac enzymes last night around midnight reveal CK 30, CK-MB 6.7 and troponin 0.02. CBC: Hemoglobin 11, hematocrit 36 and platelet count 200. ECG on admission yesterday revealed evidence for sinus rhythm with old inferoposterior myocardial infarction and was unchanged compared to his baseline. ECG this morning reveals narrow complex tachycardia with ventricular rate 178 and otherwise QRS morphology is not appreciably changed. ASSESSMENT/PLAN: Mr. Humphrey is a 67-year-old man who has history of coronary artery bypass surgery a little more than 2 years ago that was complicated by right ventricular infarct and subsequently led to chronic right-sided heart failure even though paradoxically he later developed pulmonary hypertension. He has been dialysis dependent since his bypass surgery. He has struggled chronically with low blood pressure in the setting of right-sided heart failure and required weekly paracenteses since March of this year. At this point, I am afraid there is not much more that we can do medically for him. I do believe that he is approaching end-of-life. I had a long discussion with his family yesterday and he was made DO NOT INTUBATE/DO NOT RESUSCITATE (DNI/DNR). There was a tentative plan to consider extubation and comfort care possibly after dialysis today. Unfortunately, the supraventricular tachycardia (SVT) complicates the situation further. So far, he received half a mg of digoxin. If there is no response, will try to give him amiodarone in an attempt to accomplish some slowing of his heart rate. Even though this is certainly a very unpleasant development, I am afraid that it is going to further speed up his demise. Unfortunately, I do not have much else to offer to this unfortunate gentleman. BELLA
[2018-08-20] MEDS: DOCUSATE SOD LIQ 100MG/10ML UDC GT SCH ×2 (08:12→20:14)
[2018-08-20] MEDS: MIDODRINE 5 MG TAB NG SCH (08:12)
[2018-08-20] MEDS: FOLIC ACID 1 MG TAB NG SCH (08:12)
--- NOTE | 2018-08-20 08:53 | IPNPDOC ---
Text Note Date of Service The patient was seen on 08/20/18. NOTE S: patient is intubated, chewing on tube. off sedation and is alert. He dev elopped SVT this AM and given digoxin IV loading and amiodarone loading by cardiology without significant improvement. He continues to be hypotensive and poor cardiac output. He is to have dialysis today and possibly extubated (awaiting pulm eval). He knods his head yes/no and there is no CP, no SOB, no N, noV O: Vitals as below General: intubated, alert Heart - tachy/regular 150 LCTA with diminished right base breathsounds, no wheeze, no rhonchi; +course scattered rales Ext 2+edema A/P: 1-Acute hypercarbic respiratory failure - . pulm consulted and managing vent/pulm status- hopefully extubate today after dialysis 2-HCAP - doubt. pulm consulted and case discussed. This appears to be CHF not pneumonia. d/c antibiotics 3-Hypotension with endstage cardiomyopathy/CAD - cardiology consulted- prognosis poor and minimal function to RV on echo. 4. SVT - IV dig, IVamiodarone - see cardiology note 5 Intractable low back pain with new osteoporosis vertebral fractures per ; xrays with L3 L4 pathologic compression fracture with lucency suspicious for malignancy 5-Hx of ESRD on HD - consulted nephrology for dialysis 6-Hx of CAD s/p CABG Prognosis: Grave VS,Fishbone, I+O VS, Fishbone, I+O Laboratory Tests 08/20/18 05:22 Red Blood Count 3.61 L, Mean Corpuscular Volume 100.8 H, Mean Corpuscular Hemoglobin 30.5, Mean Corpuscular Hemoglobin Concent 30.2 L, Red Cell Distribution Width 16.2 H, Calcium Level 8.3 L Vital Signs Date Time Temp Pulse Resp B/P (MAP) Pulse Ox O2 Delivery O2 Flow Rate FiO2 08/20/18 07:42 164 14 97 90 08/20/18 06:55 100/61 (75) 08/20/18 04:00 98.8 08/19/18 14:55 Ventilator 08/18/18 20:26 2.0 I&O- Last 24 Hours up to 6 AM 08/20/18 06:00 Intake Total 1253.9 ml Output Total 35 ml Balance 1218.9 ml LISSETH ARMSTRONG DO Aug 20, 2018 08:53
[2018-08-20] MEDS ORDERED: GABAPENTIN 100 MG CAP NG SCH (09:00)
--- NOTE | 2018-08-20 10:13 | CCN ---
DATE OF VISIT: 08/20/2018 START TIME: 0915 hours STOP TIME: 0950 hours I again attended Александр Humphrey here in the intensive care unit. The patient has been examined and chart reviewed. I have spoken at length with nephrology as well as the family at the bedside. Overnight he has had issues with supraventricular tachycardia (SVT) and progressive hypotension. Heart rate up in the 170s to 180s and fairly unresponsive even to amiodarone. Blood pressure down in the 70s and there are no plans to dialyze him today because of that. He has required increasing FiO2 levels as well. No new imaging today. Repeat labs show a white blood cell count of 9.7, hemoglobin 11.0, platelet count of 200,000, sodium 134, potassium 4.5, chloride 102, CO2 23, BUN 27, creatinine 4.4. Blood gas this morning shows pH of 7.536, pCO2 of 26.8 and a PaO2 of 73.4. He appears fatigued, but is awake and follows commands. He interacts appropriately. Pupils do react. Sclera clear. Marked jugular venous distention (JVD) is again noted. Chest shows diminished expansion, basilar dependent crackles and decreased breath sounds at the extreme left base. No other focal adventitious breath sounds are noted. Cardiac exam is markedly tachycardic. Peripheral pulses diminished, but palpable. At least 1+ edema. Abdomen obese, soft. Active bowel sounds. I do believe that there is underlying ascites. Extremities without cyanosis or clubbing. Neurologically as outlined above. The most pressing problems requiring my presence at the bedside: 1. Respiratory failure requiring mechanical ventilation support. 2. Multiorgan dysfunction. 3. Supraventricular tachycardia (SVT). 4. Right sided heart failure. 5. End stage renal disease (ESRD) on dialysis. The family has had extensive discussions early this morning both with cardiology as well as nephrology. 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 I have spoken at length with his at the bedside as well as with the daughters and other family members in the room. Clearly at this point they understand that his chance of surviving this hospitalization is slim. Given his overall multiorgan dysfunction and the unlikely event that we will be able to correct anything at this juncture, they have opted for extubation and comfort measures care. I believe this is very appropriate. A Medical Order for Life-Sustaining Treatment (MOLST) form has been filled out accordingly. He will be extubated. I will stay involved in his care for whatever issues we may be able to assist with. I left the beside at 0950 hours, 45 minutes of critical care time delivered at the bedside, not including procedures.
[2018-08-20] MEDS ORDERED: ONDANSETRON 4MG/2ML VIAL (J2405) IV PRN (10:15)
[2018-08-20] MEDS ORDERED: BISACODYL 10 MG SUPP PR PRN (10:15)
[2018-08-20] MEDS ORDERED: ACETAMINOPHEN TAB 650MG DOSE (2X325MG) PO PRN (10:15)
[2018-08-20] MEDS ORDERED: HYOSCYAMINE SULFATE 0.125 MG SUBL TABLET PO PRN (10:15)
[2018-08-20] MEDS ORDERED: FLEET ENEMA PR PRN (10:15)
[2018-08-20] MEDS ORDERED: ACETAMINOPHEN 650 MG SUPP PR PRN (10:15)
[2018-08-20] MEDS ORDERED: LORazepam 2 MG/ML VIAL (J2060) IV PRN (10:15)
[2018-08-20] MEDS ORDERED: SCOPOLAMINE 1MG TRANSDERMAL PATCH TOP PRN (10:15)
[2018-08-20] MEDS ORDERED: LORazepam 1 MG TAB PO PRN (10:15)
[2018-08-20] MEDS ORDERED: ONDANSETRON 4 MG ORAL DISINTEGRATING TAB (Q0162 PER 1MG) PO PRN (10:15)
[2018-08-20] MEDS ORDERED: MORPHINE 10MG/0.5ML ORAL CONCENTRATE SOLUTION U/D SL PRN (10:15)
[2018-08-20] MEDS: MORPHINE 4 MG/ML 1ML VIAL/SYRINGE (J2270) IV PRN ×3 (10:52→21:08)
[2018-08-20] MEDS: **VANCO AFTER HD** MISC XX SCH ×2 (11:15→14:42)
[2018-08-20] MEDS ORDERED: GABAPENTIN 300 MG CAP NG PRN (16:15)
--- NOTE | 2018-08-20 18:39 | IPN ---
DATE: 08/20/2018 The patient was hypotensive overnight. Today is the patient's regular day of dialysis. Dialysis nurse came to dialyze the patient at bedside today morning in the intensive care unit (ICU); however, his blood pressures systolic were running in 60s. His systolic blood pressure was 68. We were unable to start the patient on renal replacement therapy. The patient's family members were also at the bedside. The patient was made comfort measures only after discussion with the family. He has been extubated now. Family is present at the bedside. No more dialysis for this patient. The patient is terminally ill. Nephrology service is going to sign off at this moment. The patient will not be charged for today's visit.
[2018-08-20] MEDS ORDERED: rOPINIRole 0.25 MG TAB(REQUIP) PO PRN (20:00)
[2018-08-21] MEDS: IPRATROPIUM 0.5MG/ALBUTEROL 2.5MG INH SOL UD 3ML (DUONEB)(J7620) NEB SCH ×5 (03:52→15:17)
[2018-08-21] MEDS ORDERED: GABAPENTIN 100 MG CAP NG PRN (05:00)
[2018-08-21] MEDS: MORPHINE 4 MG/ML 1ML VIAL/SYRINGE (J2270) IV PRN (05:51)
--- NOTE | 2018-08-21 07:39 | ECGEPIP ---
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
[2018-08-21] MEDS: DOCUSATE SOD LIQ 100MG/10ML UDC GT SCH (08:33)
[2018-08-21] MEDS: ATROPINE SULFATE 1% OP SOLN 2 ML BTL SL PRN ×2 (09:17→11:38)
--- NOTE | 2018-08-21 14:35 | DS.PDOC ---
Discharge Summary General Date of Admission Aug 19, 2018 at 02:28 Date of Discharge 08/21/18 @ 1336 () Primary Care Physician: YESENIA GENTILE DO Attending Physician: LISSETH ARMSTRONG DO Specialist/Consultants Involve Dr Quezada,Dr Bermudez, Dr Berumen Discharge Summary PROCEDURES PERFORMED DURING STAY: 08/19/18 intubated 08/20/18 extubated ADMITTING DIAGNOSES: 1-Acute hypercarbic respiratory failure 2-HCAP 3-Hypotension 4-Intractable low back pain 5-Hx of ESRD on HD last dialysis today 6-Hx of CAD s/p CABG 7-L3 L4 pathologic compression fracture with lucency suspicious for malignancy DISCHARGE DIAGNOSES: 1. Acute hypercarbic respiratory failure 2. chronic hypoxic respiratory failure 3. SVT 4. acute on chronic diastolic CHF 5. ESRD on dialysis 6. Endstage cardiomyopathy/CAD 7. Intractable low back pain with L3 L4 pathologic compression fracture with lucency suspicious for malignancy COMPLICATIONS/CHIEF COMPLAINT: Weakness. HISTORY OF PRESENT ILLNESS: 67 y/o M with Hx of AMI in 2017 s/p CABG resulting in CKD on HD since then, MWF, also Hx of low back pain brought to ED by his due to lower extremity weakness and increased low back pain. Pt has chronic low back pain sec to lumbar spine compression fracture, today pain was intolerable 8/10 with no radiation. Pt denies any bowel or bladder incontinence. Pt is at bedside she states that he completed hemodialysis today as per the schedule on arrival to home he was extremely weak not able to stand on his feet with increased pain in his back. In the ED pt was found to have respiratory distress as well, ABG revealed hypercarbic respiratory failure and pt received BiPAP support. Upon my encounter pt is sleepy and confused, just recently received morphine due to pain. Denies CP or palpitations. - see H&P for details. HOSPITAL COURSE: Patientintubated in ED and admitted to ICU. Pulm, automation technician, cardiology and nephrology consulted. Patient unable to maintain blood pressures and became tachycardic with SVT (no improvement with amiodarone, dig; patient was not on pressor agents). Each media sales consultant discussed with the family endstage disease and poor pronosis/grave outcome. Patient changed from full code to DNR/DNI and later comfort care. he was extubated and given supplemental oxygen. Patient appeared comfortable and with and family present at 1336 on 08/21/18. DISCHARGE MEDICATIONS: Please see below. ALLERGIES: Please see below. PHYSICAL EXAMINATION ON DISCHARGE: VITAL SIGNS: Please see below. Exam at 0900: General: unresponsive to verbal or tactile stimulation; agonal breathing HRRR LCTA poor excursion and breathsounds At 1345: patient had no response to verbal or tactile stimlation, had no audible breath sounds and no audible heart tones. He did no respond t ohis name. He was pronounced by nursing staff at 1336 PCP - Yesenia Gentile office notified. Condolences offered to family. LABORATORY DATA: Please see below. DISPOSITION: /discharged. Release body to home DISCHARGE INSTRUCTIONS: 1.none TIME SPENT ON DISCHARGE: 35 minutes. Vital Signs/I&Os Vital Signs Date Time Temp Pulse Resp B/P (MAP) Pulse Ox O2 Delivery O2 Flow Rate FiO2 08/20/18 19:30 2.0 08/20/18 08:00 24 100 08/20/18 08:00 98.6 169 79/47 (58) 93 08/19/18 14:55 Ventilator I&O- Last 24 Hours up to 6 AM 08/21/18 06:00 Intake Total 0 ml Output Total 100 ml Balance -100 ml Microbiology Microbiology 08/18/18 Blood Culture - Preliminary, Resulted No Growth after 48 hours. All Specime... 08/18/18 Blood Culture - Preliminary, Resulted No Growth after 48 hours. All Specime... Discharge Medications No Active Prescriptions or Reported Meds Allergies Coded Allergies: No Known Allergies (Unverified , 08/18/18) LISSETH ARMSTRONG DO Aug 21, 2018 14:35
== END 2018-08-21 13:36 | disposition expired | DRG 194 ==
LOC: M ED 18:40 → EDSEX 18:40 → EDBD 18:40 → M ED INP 08-19 02:28 → M ICU 08-19 09:52 → M MSPAV 08-20 14:18
PROVIDERS: ADMIT Hospitalist; ATTEND Family Medicine
PROC: 5A1935Z Respiratory Ventilation, Less than 24 Consecutive Hours (ICD-10-PCS; principal; 2018-08-19)
DX: I13.2 Hypertensive heart and chronic kidney disease with heart failure and with stage 5 chronic kidney disease, or end stage renal disease (principal); J96.02 Acute respiratory failure with hypercapnia; I95.9 Hypotension, unspecified; N18.6 End stage renal disease; E11.40 Type 2 diabetes mellitus with diabetic neuropathy, unspecified; I42.9 Cardiomyopathy, unspecified; M84.48XA Pathological fracture, other site, initial encounter for fracture; Z95.1 Presence of aortocoronary bypass graft; K74.60 Unspecified cirrhosis of liver; I25.10 Atherosclerotic heart disease of native coronary artery without angina pectoris; I25.2 Old myocardial infarction; I47.1 Supraventricular tachycardia; Z66 Do not resuscitate; Z51.5 Encounter for palliative care; Z79.899 Other long term (current) drug therapy; E78.5 Hyperlipidemia, unspecified; D63.1 Anemia in chronic kidney disease; I50.33 Acute on chronic diastolic (congestive) heart failure